=== PATIENT | male | born 1955 | race Caucasian/White ===

== ENCOUNTER 2019-12-28 10:29 | Outpatient (CLI) | payer MEDICARE, SELFPAY ==
[2019-12-28 11:06] LABS: Basophils Absolute Auto 0.1 K/mm3 (0.0-0.1); Basophils Percent Auto 0.6 % (0.2-1.2); Eosinophils Absolute Auto 0.1 K/mm3 (0-0.3); Eosinophils Percent Auto 1.2 % (0-4.4); Hematocrit 46.5 % (42.0-52.0); Hemoglobin 15.6 g/dL (14.0-18.0); Immature Granulocyte Absolute 0.07 K/mm3 (0.00-0.031); Immature Granulocyte Percent A 0.7 % (0-0.5); Lymphocytes Absolute Auto 1.63 K/mm3 (0.9-3.2); Lymphocytes Percent Auto 16.6 % (18.3-44.2); Mean Corpuscular HGB Conc 33.5 g/dl (32-36); Mean Corpuscular Hemoglobin 28.4 pg (26-34); Mean Corpuscular Volume 84.5 fl (80-100); Mean Platelet Volume 9.3 fl (7.4-10.4); Monocytes Absolute Auto 0.8 K/mm3 (0.1-0.6); Monocytes Percent Auto 8.3 % (2.6-8.5); Neutrophils Absolute Auto 7.1 K/mm3 (1.3-6.7); Neutrophils Percent Auto 72.6 % (45.5-73.1); Platelet Count Result 349 k/mm3 (150-375); Red Cell Distribution Width 14.2 % (11.5-14.5); White Blood Count 9.8 K/mm3 (4.5-10.0)
[2019-12-28 11:59] LABS: Erythrocyte Sedimentation Rate 7 mm/hr (0-20)
[2019-12-28 13:21] LABS: CRP 0.7 mg/dL (<1.0)
[2020-01-06 13:51] LABS: CALR Exon 9 Mutation Not Detected (Not Detected); CSF3R Exon 14/17 Mutation Not Detected (Not Detected); JAK2 Exon 12 Mutation Not Detected (Not Detected); JAK2 V617F Mutation Not Detected (Not Detected); MPL Exon 10 Mutation Not Detected (Not Detected); Specimen Source Blood
== END 2019-12-28 10:30 | disposition home or self-care (01) ==
PROVIDERS: PCP Internal Medicine; Visit Provider Internal Medicine Hematology & Oncology
DX: R79.89 Other specified abnormal findings of blood chemistry (principal); D47.3 Essential (hemorrhagic) thrombocythemia
CPT/HCPCS: 36415; 81219; 81270; 81402; 81403; 81479; 85025; 85652; 86140

== ENCOUNTER 2021-09-04 11:32 | Outpatient (CLI) | payer MEDICARE, SELFPAY ==
[2021-09-04 12:02] LABS: Basophils Absolute Auto 0.1 K/mm3 (0.0-0.1); Basophils Percent Auto 0.6 % (0.2-1.2); Eosinophils Absolute Auto 0.1 K/mm3 (0-0.3); Eosinophils Percent Auto 0.6 % (0-4.4); Hematocrit 49.1 % (42.0-52.0); Immature Granulocyte Absolute 0.05 K/mm3 (0.00-0.031); Immature Granulocyte Percent A 0.5 % (0-0.5); Lymphocytes Absolute Auto 1.39 K/mm3 (0.9-3.2); Lymphocytes Percent Auto 13.4 % (18.3-44.2); Mean Corpuscular HGB Conc 32.6 g/dl (32-36); Mean Corpuscular Hemoglobin 28.4 pg (26-34); Mean Corpuscular Volume 87.2 fl (80-100); Mean Platelet Volume 9.3 fl (7.4-10.4); Monocytes Absolute Auto 0.7 K/mm3 (0.1-0.6); Monocytes Percent Auto 6.5 % (2.6-8.5); Neutrophils Absolute Auto 8.2 K/mm3 (1.3-6.7); Neutrophils Percent Auto 78.4 % (45.5-73.1); Platelet Count Result 427 k/mm3 (150-375); Red Blood Count 5.63 M/mm3 (4.6-6.20); Red Cell Distribution Width 14.5 % (11.5-14.5); White Blood Count 10.4 K/mm3 (4.5-10.0)
[2021-09-04 13:43] LABS: Alanine Aminotransferase 28 U/L (6-50); Albumin Level 4.2 g/dL (3.5-5.1); Alkaline Phosphatase 89 U/L (38-126); Anion Gap 9 mmol/L (8-16); Aspartate Amino Transferase 29 U/L (17-59); Bilirubin,Total 0.3 mg/dL (0.2-1.3); Blood Urea Nitrogen 10 mg/dL (9-20); Calcium 8.7 mg/dL (8.4-10.2); Carbon Dioxide 23 mmol/L (22-30); Chloride 99 mmol/L (98-107); Estimated Glomerular Filt Rate > 60; Glucose 126 mg/dL (65-110); Sodium 131 mmol/L (137-145)
[2021-09-08 12:31] LABS: Erythropoietin (EPO) 4.5 mIU/mL (2.6-18.5)
== END 2021-09-04 11:33 | disposition home or self-care (01) ==
LOC: ANHLAB 11:36
PROVIDERS: PCP Internal Medicine; Visit Provider Internal Medicine Hematology & Oncology
DX: D47.3 Essential (hemorrhagic) thrombocythemia (principal)
CPT/HCPCS: 36415; 80053; 82668; 85025

== ENCOUNTER 2022-05-11 13:42 | Outpatient (CLI) | payer MEDICARE, SELFPAY ==
[2022-05-11 13:54] LABS: Basophils Absolute Auto 0.1 K/mm3 (0.0-0.1); Basophils Percent Auto 0.8 % (0.2-1.2); Eosinophils Absolute Auto 0.2 K/mm3 (0-0.3); Eosinophils Percent Auto 1.4 % (0-4.4); Hematocrit 48.3 % (42.0-52.0); Immature Granulocyte Absolute 0.09 K/mm3 (0.00-0.031); Immature Granulocyte Percent A 0.8 % (0-0.5); Lymphocytes Absolute Auto 1.95 K/mm3 (0.9-3.2); Lymphocytes Percent Auto 17.9 % (18.3-44.2); Mean Corpuscular HGB Conc 33.1 g/dl (32-36); Mean Corpuscular Hemoglobin 28.1 pg (26-34); Mean Corpuscular Volume 84.9 fl (80-100); Mean Platelet Volume 9.2 fl (7.4-10.4); Monocytes Absolute Auto 0.9 K/mm3 (0.1-0.6); Neutrophils Absolute Auto 7.7 K/mm3 (1.3-6.7); Neutrophils Percent Auto 71.1 % (45.5-73.1); Platelet Count Result 429 k/mm3 (150-375); Red Blood Count 5.69 M/mm3 (4.6-6.20); Red Cell Distribution Width 14.2 % (11.5-14.5); White Blood Count 10.9 K/mm3 (4.5-10.0)
[2022-05-11 15:01] LABS: Alanine Aminotransferase 24 U/L (6-50); Albumin Level 4.2 g/dL (3.5-5.1); Alkaline Phosphatase 101 U/L (38-126); Anion Gap 7 mmol/L (8-16); Aspartate Amino Transferase 21 U/L (17-59); Bilirubin,Total 0.2 mg/dL (0.2-1.3); Blood Urea Nitrogen 8 mg/dL (9-20); Calcium 8.8 mg/dL (8.4-10.2); Carbon Dioxide 29 mmol/L (22-30); Chloride 98 mmol/L (98-107); Estimated Glomerular Filt Rate > 60; Glucose 103 mg/dL (65-110); Potassium 4.4 mmol/L (3.4-5.0); Sodium 134 mmol/L (137-145)
[2022-05-13 12:45] LABS: Erythropoietin (EPO) 8.1 mIU/mL (2.6-18.5)
== END 2022-05-11 13:43 | disposition home or self-care (01) ==
LOC: ANHLAB 13:43
PROVIDERS: PCP Internal Medicine; Visit Provider Internal Medicine Hematology & Oncology
DX: D47.3 Essential (hemorrhagic) thrombocythemia (principal)
CPT/HCPCS: 36415; 80053; 82668; 85025

== ENCOUNTER 2023-05-14 12:51 | Outpatient (CLI) | payer MEDICARE, SELFPAY ==
[2023-05-14 13:02] LABS: Basophils Absolute Auto 0.1 K/mm3 (0.0-0.1); Basophils Percent Auto 0.9 % (0.2-1.2); Eosinophils Absolute Auto 0.1 K/mm3 (0-0.3); Eosinophils Percent Auto 1.1 % (0-4.4); Hemoglobin 15.7 g/dL (14.0-18.0); Immature Granulocyte Absolute 0.08 K/mm3 (0.00-0.031); Immature Granulocyte Percent A 0.8 % (0-0.5); Lymphocytes Absolute Auto 1.89 K/mm3 (0.9-3.2); Lymphocytes Percent Auto 19.3 % (18.3-44.2); Mean Corpuscular HGB Conc 33.4 g/dl (32-36); Mean Corpuscular Hemoglobin 28.1 pg (26-34); Mean Corpuscular Volume 84.1 fl (80-100); Mean Platelet Volume 9.2 fl (7.4-10.4); Monocytes Percent Auto 9.8 % (2.6-8.5); Neutrophils Absolute Auto 6.7 K/mm3 (1.3-6.7); Neutrophils Percent Auto 68.1 % (45.5-73.1); Platelet Count Result 370 k/mm3 (150-375); Red Blood Count 5.59 M/mm3 (4.6-6.20); Red Cell Distribution Width 14.4 % (11.5-14.5); White Blood Count 9.8 K/mm3 (4.5-10.0)
[2023-05-14 15:18] LABS: Anion Gap 4 mmol/L (8-16); Blood Urea Nitrogen 12 mg/dL (9-20); Carbon Dioxide 30 mmol/L (22-30); Chloride 100 mmol/L (98-107); Estimated Glomerular Filt Rate > 60; Glucose 102 mg/dL (65-110); Potassium 4.4 mmol/L (3.4-5.0); Sodium 134 mmol/L (137-145)
== END 2023-05-14 12:52 | disposition home or self-care (01) ==
LOC: ANHLAB 12:53
PROVIDERS: PCP Internal Medicine; Visit Provider Internal Medicine Hematology & Oncology
DX: D47.3 Essential (hemorrhagic) thrombocythemia (principal)
CPT/HCPCS: 36415; 80048; 85025

== ENCOUNTER 2023-12-13 09:51 | Outpatient (CLI) | payer MEDICARE, SELFPAY ==
[2023-12-13 11:51] LABS: Creatinine Urine 74.4 mg/dL; Total Protein Urine Random 55 mg/dL; Ur Ttl Prot Creatinine Ratio 0.74 mg/mg (0-0.20)
[2023-12-13 11:56] LABS: Anion Gap 8 mmol/L (4-12); Blood Urea Nitrogen 12 mg/dL (9-20); Calcium 8.9 mg/dL (8.4-10.2); Carbon Dioxide 28 mmol/L (22-30); Chloride 98 mmol/L (98-107); Estimated Glomerular Filt Rate > 60; Glucose 166 mg/dL (65-110); Potassium 4.1 mmol/L (3.4-5.0); Sodium 134 mmol/L (137-145)
== END 2023-12-13 09:52 | disposition home or self-care (01) ==
PROVIDERS: PCP Internal Medicine; Visit Provider Internal Medicine Nephrology
DX: R80.1 Persistent proteinuria, unspecified (principal); I10 Essential (primary) hypertension
CPT/HCPCS: 36415; 80069; 82570; 84156

== ENCOUNTER 2024-05-25 09:11 | Outpatient (CLI) | payer MEDICARE, SELFPAY ==
[2024-05-25 09:39] LABS: Basophils Absolute Auto 0.1 K/mm3 (0.0-0.1); Basophils Percent Auto 1.1 % (0.2-1.2); Eosinophils Absolute Auto 0.1 K/mm3 (0-0.3); Eosinophils Percent Auto 1.6 % (0-4.4); Hematocrit 47.7 % (42.0-52.0); Hemoglobin 15.9 g/dL (14.0-18.0); Immature Granulocyte Absolute 0.08 K/mm3 (0.00-0.031); Lymphocytes Absolute Auto 1.31 K/mm3 (0.9-3.2); Mean Corpuscular HGB Conc 33.3 g/dl (32-36); Mean Corpuscular Hemoglobin 27.8 pg (26-34); Mean Corpuscular Volume 83.4 fl (80-100); Mean Platelet Volume 8.9 fl (7.4-10.4); Monocytes Absolute Auto 0.8 K/mm3 (0.1-0.6); Monocytes Percent Auto 9.5 % (2.6-8.5); Neutrophils Absolute Auto 5.8 K/mm3 (1.3-6.7); Neutrophils Percent Auto 70.8 % (45.5-73.1); Platelet Count Result 465 k/mm3 (150-375); Red Blood Count 5.72 M/mm3 (4.6-6.20); Red Cell Distribution Width 14.6 % (11.5-14.5); White Blood Count 8.2 K/mm3 (4.5-10.0)
--- OUTSIDE RECORDS SUMMARY | 2024-05-25 09:39 | XMS_ITS | Data Portability ---
Author Organization [place] [facility], Main Office Address [address] [place] [address] Care Team Providers Care Insulation Blanket Maker Name Role Phone ELVIS ART Primary Care Provider [phone] ELVIS ART Referring Provider [phone] MATTEO LUJAN Orthopedic Surgeon [phone] YOSEPH MUKHERJEE Deck Cadet BRY JIMENEZ Shipwright Helper Assessment Encounter Date Assessment Date Assessment LastModified by Organization Details LastModified Time 01/12/2023 01/12/2023 12/22/2021: PSA 2.55 TSH/FT4: WNL Chol 233, TG 290, HDL 35, LDL 140 CMP: Na 134 Vit D 38 A1C 6.3 CBC: WBC 11.9, PLT 461 03/06/2022: A1C 6.4 TSH/FT4: WNL Urine micro alb 272.5 CBC: WBC 11.9, PLT 486 CMP Gluc 118 Lipids: LDL 108 07/03/2022: A1C 6.2 Gluc 115 HCT 50.5, PLT 421 TSH/FT4: WNL Urine micro alb 284.1 01/05/2023: A1C 6.3 Urine micro 324.6 Gluc 126 PLT 439 Not available 01/12/2023 09:43:51 07/06/2023 07/06/2023 12/22/2021: PSA 2.55 TSH/FT4: WNL Chol 233, TG 290, HDL 35, LDL 140 CMP: Na 134 Vit D 38 A1C 6.3 CBC: WBC 11.9, PLT 461 03/06/2022: A1C 6.4 TSH/FT4: WNL Urine micro alb 272.5 CBC: WBC 11.9, PLT 486 CMP Gluc 118 Lipids: LDL 108 07/03/2022: A1C 6.2 Gluc 115 HCT 50.5, PLT 421 TSH/FT4: WNL Urine micro alb 284.1 01/05/2023: A1C 6.3 Urine micro 324.6 Gluc 126 PLT 439 06/28/2023: PSA 2.39 07/01/2023: A1C 6.4 Gluc 124 TG 211 Urine micro alb 305.4 PLT 410 Not available 07/05/2023 09:24:16 10/12/2023 10/12/2023 12/22/2021: PSA 2.55 TSH/FT4: WNL Chol 233, TG 290, HDL 35, LDL 140 CMP: Na 134 Vit D 38 A1C 6.3 CBC: WBC 11.9, PLT 461 03/06/2022: A1C 6.4 TSH/FT4: WNL Urine micro alb 272.5 CBC: WBC 11.9, PLT 486 CMP Gluc 118 Lipids: LDL 108 07/03/2022: A1C 6.2 Gluc 115 HCT 50.5, PLT 421 TSH/FT4: WNL Urine micro alb 284.1 01/05/2023: A1C 6.3 Urine micro 324.6 Gluc 126 PLT 439 06/28/2023: PSA 2.39 07/01/2023: A1C 6.4 Gluc 124 TG 211 Urine micro alb 305.4 PLT 410 10/07/2023: A1C 6.4 Urine micro alb 350.3 Gluc 116 TG 166, LDL 109 Not available 10/10/2023 22:09:35 11/04/2023 11/04/2023 The patient has moderately severe primary osteoarthritis of the right knee joint with significant narrowing of the lateral compartment and lateral facets of the patellofemoral articulations bilaterally. We talked about treatment options today I offered him cortisone and oral prednisone he declined each he also declined formal physical therapy states his knee pain is resolving with time and Tylenol. He is going to continue with activity modification as well. If his pain flares up again he will come back and see me he wanted make sure there was nothing severe going on he has moderate primary osteoarthritis. It appears he just flared this up while overdoing it in the yd. He voiced understanding and agrees above plan he will call for any further problems difficulties or questions. [email or web address] Not available 11/04/2023 09:42:41 02/08/2024 02/08/2024 12/22/2021: PSA 2.55 TSH/FT4: WNL Chol 233, TG 290, HDL 35, LDL 140 CMP: Na 134 Vit D 38 A1C 6.3 CBC: WBC 11.9, PLT 461 03/06/2022: A1C 6.4 TSH/FT4: WNL Urine micro alb 272.5 CBC: WBC 11.9, PLT 486 CMP Gluc 118 Lipids: LDL 108 07/03/2022: A1C 6.2 Gluc 115 HCT 50.5, PLT 421 TSH/FT4: WNL Urine micro alb 284.1 01/05/2023: A1C 6.3 Urine micro 324.6 Gluc 126 PLT 439 06/28/2023: PSA 2.39 07/01/2023: A1C 6.4 Gluc 124 TG 211 Urine micro alb 305.4 PLT 410 10/07/2023: A1C 6.4 Urine micro alb 350.3 Gluc 116 TG 166, LDL 109 12/13/2023: Dr Barker Gluc 166 02/03/2024: A1C 6.4 Gluc 122 Urine micro alb 532.3 PLT 405 LDL 127 Not available 02/08/2024 11:18:15 Plan of Treatment Reminders Order Date Submit Date Provider Last Modified By Organization Details Last Modified Time Details Appointments Any 15 2024 09:00A Felicita gilliam MD Not available Not available Not available Lab lipid panel, serum 2022 023 [facility] (Lab), [address] [place], [address], 07/01/2023 14:45:56 CMP, serum or plasma 2022 023 [facility] (Lab), [address] [place], [address], 07/01/2023 14:46:12 CBC w/ auto diff 2022 023 [facility] (Lab), [address] [place], [address], 07/01/2023 13:24:10 TSH, serum or plasma 2022 023 [facility] (Lab), [address] [place], [address], 07/01/2023 15:59:17 T4, free, serum 2022 023 [facility] (Lab), [address] [place], [address], 07/01/2023 15:49:02 glycohemo globin, total, blood 2022 023 [facility] (Lab), [address] [place], [address], 07/01/2023 14:59:19 microalbu min, urine 2022 023 [facility] (Lab), [address] [place], [address], 07/01/2023 14:23:31 lipid panel, serum 2023 024 [facility] (Lab), [address] [place], [address], 10/07/2023 12:50:26 CMP, serum or plasma 2023 024 [facility] (Lab), [address] [place], [address], 10/07/2023 12:50:38 CBC w/ auto diff 2023 024 [facility] (Lab), [address] [place], [address], 10/07/2023 12:38:42 TSH, serum or plasma 2023 024 [facility] (Lab), [address] [place], [address], 10/07/2023 13:44:08 T4, free, serum 2023 024 [facility] (Lab), [address] [place], [address], 10/07/2023 13:11:37 glycohemo globin, total, blood 2023 024 [facility] (Lab), [address] [place], [address], 10/07/2023 13:53:04 microalbu min, urine 2023 024 [facility] (Lab), [address] [place], [address], 10/07/2023 15:33:48 lipid panel, serum 2023 024 [facility] (Lab), [address] [place], [address], 02/03/2024 12:42:08 CMP, serum or plasma 2023 024 [facility] (Lab), [address] [place], [address], 02/03/2024 12:42:29 CBC w/ auto diff 2023 024 [facility] (Lab), [address] [place], [address], 02/03/2024 12:01:39 TSH, serum or plasma 2023 024 [facility] (Lab), [address] [place], [address], 02/03/2024 13:15:30 T4, free, serum 2023 024 [facility] (Lab), [address] [place], [address], 02/03/2024 12:59:38 glycohemo globin, total, blood 2023 024 [facility] (Lab), [address] [place], [address], 02/03/2024 13:07:09 microalbu min, urine 2023 024 [facility] (Lab), [address] [place], [address], 02/03/2024 12:41:18 lipid panel, serum 2023 024 [facility] (Lab), [address] [place], [address], 03/04/2024 11:37:15 CMP, serum or plasma [address] (Lab), [address] [place], [address], 02/08/2024 10:17:39 CBC w/ auto diff [address] (Lab), [address] [place], [address], 02/08/2024 10:17:39 TSH, serum or plasma [address] (Lab), [address] [place], [address], 02/08/2024 10:17:40 T4, free, serum [address] (Lab), [address] [place], [address], 02/08/2024 10:17:40 glycohemo globin, total, blood [email or web address] [facility] (Lab), [address] [place], [address], 02/08/2024 10:17:40 microalbu min, urine [address] [facility] (Lab), [address] [place], [address], 02/08/2024 10:17:40 Referral vascular surgeon referral 2022 023 [email or web address] [place], [address] [address], [address], [place], [address], 07/13/2023 08:40:53 nephrolog ist referral 2022 023 [email or web address] Yoseph Mukherjee MD, [address] [facility] [address], [place], [address], 07/13/2023 08:40:54 pulmonolo gist referral 2022 023 [email or web address] Richard Raza MD, [address] [place], [address], 06/15/2023 16:05:40 cardiolog ist referral 2022 023 [email or web address] [place], [address] [address], [address], [place], [address], 07/12/2023 08:39:45 podiatris t referral 2022 023 [email or web address] Milton Corbett DPM, [address] [facility], [address], [place], [address], 07/12/2023 08:39:44 hematolog ist referral 2022 023 [email or web address] Tomer Snell, [address], [place], [address], 06/15/2023 16:06:04 vascular surgeon referral 2023 024 [email or web address] [place], [address], [address], [place], [address], 08/03/2023 09:16:08 nephrolog ist referral 2023 024 [email or web address] Yoseph Mukherjee MD, [address], [address], [place], [address], 01/31/2024 10:29:55 pulmonolo gist referral 2023 024 [email or web address] Richard Raza MD, [address] [place], [address], 01/31/2024 10:29:54 hematolog ist referral 2023 024 [email or web address] Tomer Snell, [address], [place], [address], 08/03/2023 09:15:42 cardiolog ist referral 2023 024 [email or web address] [place], [address] [address], [place], [address], 01/03/2024 14:21:52 podiatris t referral 2023 024 [email or web address] Milton Corbett DPM, [address] [facility], [address], [place], [address], 01/03/2024 14:21:38 vascular surgeon referral 2023 024 [email or web address] [place], [address] [address], [address], [place], [address], 12/15/2023 08:50:45 nephrolog ist referral 2023 024 [email or web address] Yoseph Mukherjee MD, [address] [facility] [address], [place], [address], 04/12/2024 15:36:12 pulmonolo gist referral 2023 024 [email or web address] Richard Raza MD, [address] [place], [address], 04/12/2024 15:35:54 hematolog ist referral 2023 024 [email or web address] Tomer Snell, [address], [place], [address], 12/15/2023 08:50:56 cardiolog ist referral 2023 024 [email or web address] [place], [address], [address], [place], [address], 04/12/2024 15:36:13 podiatris t referral 2023 024 [email or web address] Milton Corbett DPM, [address] [facility], [address], [place], [address], 04/12/2024 15:35:54 vascular surgeon referral 2023 024 [place], [address] [address] , [address], [place], [address], 02/08/2024 10:29:20 nephrolog ist referral - Please call patient to schedule. 2023 024 [email or web address] Yoseph Mukherjee MD, [address] [facility] [address], [place], [address], 04/12/2024 15:36:15 pulmonolo gist referral - Please call patient to schedule. 2023 024 [email or web address] Richard Raza MD, [address] [place], [address], 05/18/2024 08:32:57 cardiolog ist referral 2023 024 [email or web address] [place], [address] [facility], [address], [place], [address], 02/08/2024 10:29:21 podiatris t referral - Please call patient to schedule. 2023 024 [email or web address] Milton Corbett DPM, [address] [facility], [address], [place], [address], 04/12/2024 15:38:04 hematolog ist referral 2023 024 [email or web address] Tomer Snell, [address], [place], [address], 02/08/2024 10:26:37 Procedures colonosco py screening (PROC) 2022 023 bud Kaur MD, [address] [facility], [address], [place], [address], 07/12/2023 08:41:02 colonosco py screening (PROC) 2023 024 bud Kaur MD, [address], [address], [place], [address], 01/03/2024 14:18:55 colonosco py screening (PROC) 2023 024 [email or web address] Kaur MD, [address], [address], [place], [address], 04/12/2024 13:33:05 colonosco py screening (PROC) - Please call patient to schedule. 2023 024 LUCIANO Hope MD, [address] [facility] [address], [place], [address], 04/12/2024 14:35:16 Surgeries None recorded. Imaging LDCT, chest, for lung cancer screening 2022 023 LEEANN [facility] (Radiology), [address] [place], [address], 01/18/2023 14:11:47 LDCT, chest, for lung cancer screening 2023 024 [email or web address] [facility] (Radiology), [address] [place], [address], 01/10/2024 09:31:17 LDCT, chest, for lung cancer screening - No auth required 2023 024 [email or web address] [facility] (Radiology), [address] [place], [address], 03/01/2024 14:10:17 XR, knee 2023 024 [email or web address] [facility], [facility], [place], [address], 11/04/2023 11:13:53 Medication Orders alprazola m 0.25 mg tablet 2022 023 [email or web address] [id number], [address] [facility], [place], [place], [id number], 01/12/2023 09:53:41 Patient TargetsNo targets recorded. Patient Instructions Encounter Date Encounter Id Patient Instructions Last Modified By Organization Details Last Modified Time 01/12/2023 [id number] diabetic eye exam* [email or web address] Not avail able 07/12/2023 08:41:54 07/06/2023 [id number] dementia rating scale-2* [email or web address] Not available 07/08/2023 09:42:27 multi-dimensiona l health assessment questionnaire* [email or web address] Not available 07/08/2023 09:42:54 care plan* [email or web address] Not available 09:40:54 advance care planning: care instructions [email or web address] Not available 07/06/2023 10:45:09 advance directiv es: care instructions [email or web address] 2 Not available 07/06/2023 10:45:09 [place] Advance Directives [email or web address] Not available 07/06/2023 10:45:10 diabetic eye exam* Not availa ble 01/03/2024 14:21:23 Personalized [facility] Plan and Screening Recommendations Advance Directives - Do you have one? Advance Directives - Do we have your advance directive on file in your health record? Primary Prevention/Interven tion (prevents or decreases the chance of common diseases from occurring) Smoking Risk: Refer to attached smoking cessation handouts Refer to attached handouts and prescription will be sent to pharmacy Continue to consider stopping smoking and call if we can assist you Alcohol Misuse Screening: Negative Weight: Appropriate Overwei ght Physical activity: Nutrition: Good Average Fall Risk (screened today): Low Vaccines Pneumococcal: Ordered Recommended today Recommended today, but you have declined No further needed Influenza: Ordered Recommended today Recommended today, but you have declined Chronic Disease Risks Stroke: I have no recommendations Act gallito diagnosis, Continue current treatment plan Heart Attack: I have no recommendations Act gallito diagnosis, Continue current treatment plan Clogging of the Arteries: Low risk Intermediate Risk I have no recommendations Act gallito diagnosis, Continue current treatment plan Diabetes: Secondary Prevention/Interven tion (detects treatable diseases before they may cause symptoms, disability, or ) Prostate Cancer Screening: Colon Cancer Screening: Colonoscopy Date Screening Last Performed: [id number] Eye Disease Screening: Ordered Recommended today Dementia Risk: Low Depression Screening: Negative [email or web address] Not available 07/06/2023 10:46:30 10/12/2023 [id number] dementia rating scale-2* [email or web address] Not available 10/12/2023 12:19:52 alcohol misuse* [email or web address] Not available 10/12/2023 12:20:07 depression screening* [email or web address] Not available 10/12/2023 12:20:33 Timed Up and Go test (TUG)* Not available 10/12/2023 12:20:47 multi-dimensiona l health assessment questionnaire* [email or web address] 2 Not available 10/31/2023 15:53:24 advance care planning: care instructions [email or web address] 2 Not available 10/31/2023 15:53:24 advance directiv es: care instructions karel Hannah Not available 10/31/2023 15:53:24 [place] Advance Directives [email or web address] Not available 10/31/2023 15:53:24 Personalized [facility] Plan and Screening Recommendations Advance Directives - Do you have one? You have indicated that you are capable of preparing your advance care directive Advance Directives - Do we have your advance directive on file in your health record? Primary Prevention/Interven tion (prevents or decreases the chance of common diseases from occurring) Smoking Risk: Refer to attached smoking cessation handouts Alcohol Misuse Screening: Negative Weight: Appropriate Overwei ght continue your current weight loss efforts try to lose 5% of your body weight try to lose 10% of your body weight Physical activity: minimum of 10-20 minutes of activity that causes mild breathlessness/day minimum of 20-30 minutes activity that causes mild breathlessness/day Nutrition: Good Average Refer to attached handout Heart-Healthy Diet: After Your Visit Refer to attached handout DASH Diet: After Your Visit Fall Risk (screened today): Low Refer to attached handout Preventing Falls: After your Visit Vaccines Pneumococcal: Ordered Recommended today Recommended today, but you have declined No further needed Influenza: Chronic Disease Risks Stroke: Low Risk Intermediate Risk Heart Attack: Low risk Intermediate Risk Clogging of the Arteries: Diabetes: Secondary Prevention/Interven tion (detects treatable diseases before they may cause symptoms, disability, or ) Prostate Cancer Screening: Colon Cancer Screening: Colonoscopy Date Screening Last Performed: 2010 Eye Disease Screening: Ordered Recommended today Dementia Risk: Low Intermediate I have no recommendations Depression Screening: Negative Positive [email or web address] Not available 10/12/2023 12:23:06 Reason for Referral Deputy Director Of Finance Referral for O bstructive sleep apnea syndrome Referring Physician: Elvis Art Internal Medicine, Encounter Date: 01/12/2023 Referring Physician: Elvis Art Internal Medicine, Encounter Date: 01/12/2023 Smoke Tester Referral for Type 2 diabetes mellitus without complication Referring Physician: Elvis Art Internal Medicine, Encounter Date: 01/12/2023 Vascular Surgeon Referral fo r Peripheral vascular disease Referring Physician: Shyam Keenan Medicine, Encounter Date: 01/12/2023 Deck Cadet Referral for Pr oteinuria Referring Physician: Shyam Keenan, Encounter Date: 01/12/2023 Shipwright Helper Referral for Es sential hypertension Referring Physician: Shyam Keenan, Encounter Date: 01/12/2023 Deputy Director Of Finance Referral for O bstructive sleep apnea syndrome Referring Physician: Shyam Keenan, Encounter Date: 07/06/2023 Referring Physician: Shyam Keenan, Encounter Date: 07/06/2023 Smoke Tester Referral for Type 2 diabetes mellitus without complication Referring Physician: Shyam Keenan, Encounter Date: 07/06/2023 Vascular Surgeon Referral fo r Peripheral vascular disease Referring Physician: Shyam Keenan, Encounter Date: 07/06/2023 Deck Cadet Referral for Pr oteinuria Referring Physician: Shyam Keenan, Encounter Date: 07/06/2023 Shipwright Helper Referral for Es sential hypertension Referring Physician: Shyam Keenan, Encounter Date: 07/06/2023 Deputy Director Of Finance Referral for O bstructive sleep apnea syndrome Referring Physician: Shyam Keenan, Encounter Date: 10/12/2023 Referring Physician: Shyam Keenan, Encounter Date: 10/12/2023 Smoke Tester Referral for Type 2 diabetes mellitus without complication Referring Physician: Shyam Keenan, Encounter Date: 10/12/2023 Vascular Surgeon Referral fo r Peripheral vascular disease Referring Physician: Shyam Keenan, Encounter Date: 10/12/2023 Deck Cadet Referral for Pr oteinuria Referring Physician: Elvis Art Internal Medicine, Encounter Date: 10/12/2023 Shipwright Helper Referral for Es sential hypertension Referring Physician: Elvis Art Internal Medicine, Encounter Date: 10/12/2023 Deputy Director Of Finance Referral for O bstructive sleep apnea syndrome Please call patient to schedule. Referring Physician: Elvis Art Internal Medicine, Encounter Date: 02/08/2024 Referring Physician: Elvis Art Internal Medicine, Encounter Date: 02/08/2024 Smoke Tester Referral for Type 2 diabetes mellitus without complication Please call patient to schedule. Referring Physician: Elvis Art Internal Medicine, Encounter Date: 02/08/2024 Vascular Surgeon Referral fo r Peripheral vascular disease Referring Physician: Elvis Art Internal Medicine, Encounter Date: 02/08/2024 Deck Cadet Referral for Pr oteinuria Please call patient to schedule. Referring Physician: Shyam Keenan Medicine, Encounter Date: 02/08/2024 Shipwright Helper Referral for Es sential hypertension Referring Physician: Shyam Keenan Medicine, Encounter Date: 02/08/2024 Results Created Date Observation Date Name Description Value Unit Range Abnormal Flag Note LastModifiedBy Organization Detail LastModifiedTime 01/06/2001/05/2023 MICRO ALBUM IN RANDO M URINE microalbumin , urine 324.6 mg/L 0.0-16 .[address] [facility] (Lab) [address] [place], [address], 01/05/2023 18:31:13 01/06/2001/05/2023 CBC/C OMPLE TE BLD COUNT W/DIF F white blood cells 9.5 x10'3 /uL 4.2-[address] [facility] (Lab) [address] [place], [address], 01/05/2023 13:14:01/06/2001/05/2023 CBC/C OMPLE TE BLD COUNT W/DIF F red blood cells 5.52 x10'6 /uL 4.10-[address] [facility] (Lab) [address] [place], [address], 01/05/2023 13:14:01/06/2001/05/2023 CBC/C OMPLE TE BLD COUNT W/DIF F hemoglobin 15.6 g/dL 13.2-[address] [facility] (Lab) [address] [place], [address], 01/05/2023 13:14:01/06/2001/05/2023 CBC/C OMPLE TE BLD COUNT W/DIF F hematocrit 47.5 % 39.3-[address] [facility] (Lab) [address] [place], [address], 01/05/2023 13:14:01/06/2001/05/2023 CBC/C OMPLE TE BLD COUNT W/DIF F mean red cell volume 86.1 fL 80.0-[address] [facility] (Lab) [address] [place], [address], 01/05/2023 13:14:01/06/2001/05/2023 CBC/C OMPLE TE BLD COUNT W/DIF F mean red cell hemoglobin 28.3 pg 27.0-[address] [facility] (Lab) [address] [place], [address], 01/05/2023 13:14:01/06/2001/05/2023 CBC/C OMPLE TE BLD COUNT W/DIF F mean RBC HGB concentratio n 32.8 g/dL 31.0-[address] [facility] (Lab) [address] [place], [address], 01/05/2023 13:14:01/06/2001/05/2023 CBC/C OMPLE TE BLD COUNT W/DIF F red cell distribution width 14.3 % 11.8-1 5.5 Not Available [facility] (Lab) [address] [place], [address], 01/05/2023 13:14:01/06/2001/05/2023 CBC/C OMPLE TE BLD COUNT W/DIF F platelets 439 x10'3 /uL 150-[address] [facility] (Lab) [address] [place], [address], 01/05/2023 13:14:01/06/2001/05/2023 CBC/C OMPLE TE BLD COUNT W/DIF F mean platelet volume 9.9 fL 9.0-12 .4 Not Available [facility] (Lab) [address] [place], [address], 01/05/2023 13:14:01/06/2001/05/2023 CBC/C OMPLE TE BLD COUNT W/DIF F neutrophils 76.1 % 39.0-7 2.0 high Not Available [facility] (Lab) [address] [place], [address], 01/05/2023 13:14:01/06/2001/05/2023 CBC/C OMPLE TE BLD COUNT W/DIF F lymphocytes 14.5 % 16.0-4 [address] [facility] (Lab) [address] [place], [address], 01/05/2023 13:14:01/06/2001/05/2023 CBC/C OMPLE TE BLD COUNT W/DIF F monocytes 7.3 % 5.0-[address] [facility] (Lab) [address] [place], [address], 01/05/2023 13:14:01/06/2001/05/2023 CBC/C OMPLE TE BLD COUNT W/DIF F eosinophils 0.8 % 1.0-7. 0 low Not Available [facility] (Lab) [address] [place], [address], 01/05/2023 13:14:01/06/2001/05/2023 CBC/C OMPLE TE BLD COUNT W/DIF F basophils 0.8 % 0.0-2. [address] [facility] (Lab) [address] [place], [address], 01/05/2023 13:14:01/06/2001/05/2023 CBC/C OMPLE TE BLD COUNT W/DIF F immature granulocytes 0.5 % 0.00-[address] [facility] (Lab) [address] [place], [address], 01/05/2023 13:14:01/06/2001/05/2023 CBC/C OMPLE TE BLD COUNT W/DIF F neutrophils, absolute count 7.20 x10'3 /uL 1.5-8. [address] [facility] (Lab) [address] [place], [address], 01/05/2023 13:14:01/06/2001/05/2023 CBC/C OMPLE TE BLD COUNT W/DIF F lymphocytes, absolute count 1.37 x10'3 /uL 1.07-[address] [facility] (Lab) [address] [place], [address], 01/05/2023 13:14:19 01/06/2001/05/2023 CBC/C OMPLE TE BLD COUNT W/DIF F monocytes, absolute count 0.69 x10'3 /uL 0.29-[address] [facility] (Lab) [address] [place], [address], 01/05/2023 13:14:01/06/2001/05/2023 CBC/C OMPLE TE BLD COUNT W/DIF F eosinophils, absolute count 0.08 x10'3 /uL 0.02-[address] [facility] (Lab) [address] [place], [address], 01/05/2023 13:14:01/06/2001/05/2023 CBC/C OMPLE TE BLD COUNT W/DIF F basophils, absolute count 0.08 x10'3 /uL 0.01-[address] [facility] (Lab) [address] [place], [address], 01/05/2023 13:14:01/06/2001/05/2023 CBC/C OMPLE TE BLD COUNT W/DIF F immature granulocytes ,absolute 0.05 x10'3 /uL 0.00-[address] [facility] (Lab) [address] [place], [address], 01/05/2023 13:14:01/06/2001/05/2023 CBC/C OMPLE TE BLD COUNT W/DIF F nucleated red blood cells 0.0 % -[address] [facility] (Lab) [address] [place], [address], 01/05/2023 13:14:01/06/2001/05/2023 CBC/C OMPLE TE BLD COUNT W/DIF F NRBC# 0.00 x10'3 /uL Not Available [facility] (Lab) [address] [place], [address], 01/05/2023 13:14:19 01/06/20 23 01/05/2023 LIPID PANEL cholesterol 161 mg/dL 140-19 9 NIH LEDA NSUS RECOM MENDA TION FOR EARNEST STERO L: ADULT CHILD LOW RISK: <200 <170 BORDE RLINE : <200- 239 ----- HIGH RISK: >240 >[address] [facility] (Lab) [address] [place], [address], 01/05/2023 13:19:56 01/06/20 23 01/05/2023 LIPID PANEL triglyceride s 131 mg/dL 0-150 NIH LEDA NSUS REPOR T RECOM MENDA TION FOR TRIGL YCERI ARGENIS: ADULT CHILD LOW RISK: <150 ----- BODER LINE: 150-1 99 ----- HIGH RISK: >200 ----- Not Available [facility] (Lab) [address] [place], [address], 01/05/2023 13:19:56 01/06/20 23 01/05/2023 LIPID PANEL HDL cholesterol 42 mg/dL 40- Not Available [facility] (Lab) [address] [place], [address], 01/05/2023 13:19:56 01/06/20 23 01/05/2023 LIPID PANEL LDL cholesterol, calculated 93 mg/dL 0-130 NIH LEDA NSUS REPOR T RECOM MENDA TIONS FOR LDL: ADULT CHILD LOW RISK <130 <110 (OPTI MAL LDL) <100 ----- BORDE RLINE : 130-1 59 ----- HIGH RISK: >160 >130 A TRIGL YCERI DE RESUL T >400 INVAL IDATE S THE CALCU LATIO N FOR LDL FRACT IONAT ION - THE LDL RESUL T WILL NOT BE REPOR MARIA ELENA. Not Available [facility] (Lab) [address] [place], [address], 01/05/2023 13:19:56 01/06/20 23 01/05/2023 COMPR EHENS GALLITO METAB OLIC PANEL sodium 135 mmol/ L 137-14 5 low Not Available [facility] (Lab) [address] [place], [address], 01/05/2023 13:20:17 01/06/20 23 01/05/2023 COMPR EHENS GALLITO METAB OLIC PANEL potassium 4.2 mmol/ L 3.5-5. 1 Not Available [facility] (Lab) [address] [place], [address], 01/05/2023 13:20:17 01/06/20 23 01/05/2023 COMPR EHENS GALLITO METAB OLIC PANEL chloride 97 mmol/ L 98-107 low Not Available [facility] (Lab) [address] [place], [address], 01/05/2023 13:20:17 01/06/20 23 01/05/2023 COMPR EHENS GALLITO METAB OLIC PANEL carbon dioxide 30 mmol/ L 22-30 Not Available [facility] (Lab) [address] [place], [address], 01/05/2023 13:20:17 01/06/20 23 01/05/2023 COMPR EHENS GALLITO METAB OLIC PANEL anion gap 12.2 mmol/ L 14-22 low Not Available [facility] (Lab) [address] [place], [address], 01/05/2023 13:20:17 01/06/20 23 01/05/2023 COMPR EHENS GALLITO METAB OLIC PANEL glucose 126 mg/dL 70-99 high Not Available [facility] (Lab) [address] [place], [address], 01/05/2023 13:20:17 01/06/20 23 01/05/2023 COMPR EHENS GALLITO METAB OLIC PANEL BUN 9 mg/dL 8-19 Not Available [facility] (Lab) [address] [place], [address], 01/05/2023 13:20:17 01/06/20 23 01/05/2023 COMPR EHENS GALLITO METAB OLIC PANEL creatinine 0.61 mg/dL 0.66-1 [address] [facility] (Lab) [address] [place], [address], 01/05/2023 13:20:17 01/06/20 23 01/05/2023 COMPR EHENS GALLITO METAB OLIC PANEL GFR >60 Refer ence Range : [place] GFR Healt hy Adult : >60 mL/mi n/1.7 3 m2 Chron ic Kidne y Disea se: 15-60 mL/mi n/1.7 3 m2 Kidne y Failu re: <15/m L/min /1.73 m2 www.n iddk. nih.g ov The MDRD study equat ion has not been valid ated in child deidra <18 years of age; pregn ant women ; the elder ly >85 years of age; or in some racia l or ethni c subgr oups, such as Hisil nics. Outsi de the valid ated eric eters , estim ated GFR is less accur ate, requi ring clini baljit judgm ent on a case- by-ca se basis . Clini baljit inter preta tion for other races and ages must be made by the clini hermes. The MDRD study equat ion has not been valid ated for the evalu ation of serum creat inine relat ed to nutri denilson l statu s or medic ation usage . For perso ns <18 years of age, a pedia tric GFR calcu lator is avail able on the [facility] websi te: https ://ww w.kid dorys.o rg/pr ofess ional s/kdo qi/gf r_cal culat or Not Available [facility] (Lab) [address] [place], [address], 01/05/2023 13:20:17 01/06/20 23 01/05/2023 COMPR EHENS GALLITO METAB OLIC PANEL alkaline phosphatase 84 U/L 38-126 Not Available [facility] (Lab) [address] [place], [address], 01/05/2023 13:20:17 01/06/20 23 01/05/2023 COMPR EHENS GALLITO METAB OLIC PANEL alanine aminotransfe rase 22 U/L 0-[address] [facility] (Lab) [address] [place], [address], 01/05/2023 13:20:17 01/06/20 23 01/05/2023 COMPR EHENS GALLITO METAB OLIC PANEL aspartate aminotransfe rase 19 U/L 15-[address] [facility] (Lab) [address] [place], [address], 01/05/2023 13:20:17 01/06/20 23 01/05/2023 COMPR EHENS GALLITO METAB OLIC PANEL bilirubin, total 0.30 mg/dL 0.20-[address] [facility] (Lab) [address] [place], [address], 01/05/2023 13:20:17 01/06/20 23 01/05/2023 COMPR EHENS GALLITO METAB OLIC PANEL calcium 9.5 mg/dL 8.4-[address] [facility] (Lab) [address] [place], [address], 01/05/2023 13:20:17 01/06/20 23 01/05/2023 COMPR EHENS GALLITO METAB OLIC PANEL total protein 6.8 g/dL 6.3-8. [address] [facility] (Lab) [address] [place], [address], 01/05/2023 13:20:17 01/06/20 23 01/05/2023 COMPR EHENS GALLITO METAB OLIC PANEL albumin 4.1 g/dL 3.0-4. [address] [facility] (Lab) [address] [place], [address], 01/05/2023 13:20:17 01/06/20 23 01/05/2023 COMPR EHENS GALLITO METAB OLIC PANEL globulin 2.7 g/dL 2.6-4. [address] [facility] (Lab) [address] [place], [address], 01/05/2023 13:20:17 01/06/20 23 01/05/2023 COMPR EHENS GALLITO METAB OLIC PANEL A/G ratio 1.5 ratio 1.0-2. [address] [facility] (Lab) [address] [place], [address], 01/05/2023 13:20:17 01/06/20 23 01/05/2023 T4 FREE free T4 1.19 NG/dL 0.78-[address] [facility] (Lab) [address] [place], [address], 01/05/2023 13:29:36 01/06/20 23 01/05/2023 TSH thyroid-stim ulating hormone 1.240 uIU/m L 0.465- 4.[address] [facility] (Lab) [address] [place], [address], 01/05/2023 13:47:11 01/06/2001/05/2023 HEMOG LOBIN A1C HA1C 6.3 % 4.0-6. 0 high Diabe lindsay Scree kerrie Crite janusz: <5.7% Consi stent with absen ce of diabe lindsay 5.7-6 .4% Consi stent with incre ased risk for diabe lindsay (pred iabet es) >OR=6 .5% Consi stent with diabe lindsay REFER ENCE: Diabe lindsay Care 2016, 39(Benson ppl.1 ):s13 -s22 Not Available [facility] (Lab) [address] [place], [address], 01/05/2023 15:14:27 06/28/19 24 06/28/2023 PSA SCREE N PSA medicare screen 2.39 NG/mL 0.00-[address] [facility] (Lab) [address] [place], [address], 06/28/2023 17:56:28 07/01/19 24 07/01/2023 CBC/C OMPLE TE BLD COUNT W/DIF F white blood cells 9.3 x10'3 /uL 4.2-10 .8 Not Available [facility] (Lab) [address] [place], [address], 07/01/2023 13:24:10 07/01/19 24 07/01/2023 CBC/C OMPLE TE BLD COUNT W/DIF F red blood cells 5.50 x10'6 /uL 4.10-[address] [facility] (Lab) [address] [place], [address], 07/01/2023 13:24:10 07/01/19 24 07/01/2023 CBC/C OMPLE TE BLD COUNT W/DIF F hemoglobin 15.5 g/dL 13.2-[address] [facility] (Lab) [address] [place], [address], 07/01/2023 13:24:10 07/01/19 24 07/01/2023 CBC/C OMPLE TE BLD COUNT W/DIF F hematocrit 47.9 % 39.3-[address] [facility] (Lab) [address] [place], [address], 07/01/2023 13:24:10 07/01/19 24 07/01/2023 CBC/C OMPLE TE BLD COUNT W/DIF F mean red cell volume 87.1 fL 80.0-[address] [facility] (Lab) [address] [place], [address], 07/01/2023 13:24:10 07/01/19 24 07/01/2023 CBC/C OMPLE TE BLD COUNT W/DIF F mean red cell hemoglobin 28.2 pg 27.0-[address] [facility] (Lab) [address] [place], [address], 07/01/2023 13:24:10 07/01/19 24 07/01/2023 CBC/C OMPLE TE BLD COUNT W/DIF F mean RBC HGB concentratio n 32.4 g/dL 31.0-[address] [facility] (Lab) [address] [place], [address], 07/01/2023 13:24:10 07/01/19 24 07/01/2023 CBC/C OMPLE TE BLD COUNT W/DIF F red cell distribution width 14.6 % 11.8-[address] [facility] (Lab) [address] [place], [address], 07/01/2023 13:24:10 07/01/19 24 07/01/2023 CBC/C OMPLE TE BLD COUNT W/DIF F platelets 410 x10'3 /uL 150-[address] [facility] (Lab) [address] [place], [address], 07/01/2023 13:24:10 07/01/19 24 07/01/2023 CBC/C OMPLE TE BLD COUNT W/DIF F mean platelet volume 10.1 fL 9.0-[address] [facility] (Lab) [address] [place], [address], 07/01/2023 13:24:10 07/01/19 24 07/01/2023 CBC/C OMPLE TE BLD COUNT W/DIF F neutrophils 70.6 % 39.0-[address] [facility] (Lab) [address] [place], [address], 07/01/2023 13:24:10 07/01/19 24 07/01/2023 CBC/C OMPLE TE BLD COUNT W/DIF F lymphocytes 17.0 % 16.0-[address] [facility] (Lab) [address] [place], [address], 07/01/2023 13:24:10 07/01/19 24 07/01/2023 CBC/C OMPLE TE BLD COUNT W/DIF F monocytes 9.6 % 5.0-[address] [facility] (Lab) [address] [place], [address], 07/01/2023 13:24:10 07/01/19 24 07/01/2023 CBC/C OMPLE TE BLD COUNT W/DIF F eosinophils 1.3 % 1.0-7. [address] [facility] (Lab) [address] [place], [address], 07/01/2023 13:24:10 07/01/19 24 07/01/2023 CBC/C OMPLE TE BLD COUNT W/DIF F basophils 0.6 % 0.0-2. [address] [facility] (Lab) [address] [place], [address], 07/01/2023 13:24:10 07/01/19 24 07/01/2023 CBC/C OMPLE TE BLD COUNT W/DIF F immature granulocytes 0.9 % 0.00-0 .[address] [facility] (Lab) [address] [place], [address], 07/01/2023 13:24:10 07/01/19 24 07/01/2023 CBC/C OMPLE TE BLD COUNT W/DIF F neutrophils, absolute count 6.57 x10'3 /uL 1.5-8. [address] [facility] (Lab) [address] [place], [address], 07/01/2023 13:24:10 07/01/19 24 07/01/2023 CBC/C OMPLE TE BLD COUNT W/DIF F lymphocytes, absolute count 1.58 x10'3 /uL 1.07-[address] [facility] (Lab) [address] [place], [address], 07/01/2023 13:24:10 07/01/19 24 07/01/2023 CBC/C OMPLE TE BLD COUNT W/DIF F monocytes, absolute count 0.89 x10'3 /uL 0.29-[address] [facility] (Lab) [address] [place], [address], 07/01/2023 13:24:10 07/01/19 24 07/01/2023 CBC/C OMPLE TE BLD COUNT W/DIF F eosinophils, absolute count 0.12 x10'3 /uL 0.02-[address] [facility] (Lab) [address] [place], [address], 07/01/2023 13:24:10 07/01/19 24 07/01/2023 CBC/C OMPLE TE BLD COUNT W/DIF F basophils, absolute count 0.06 x10'3 /uL 0.01-[address] [facility] (Lab) [address] [place], [address], 07/01/2023 13:24:10 07/01/19 24 07/01/2023 CBC/C OMPLE TE BLD COUNT W/DIF F immature granulocytes ,absolute 0.08 x10'3 /uL 0.00-0 .[address] [facility] (Lab) [address] [place], [address], 07/01/2023 13:24:10 07/01/19 24 07/01/2023 CBC/C OMPLE TE BLD COUNT W/DIF F nucleated red blood cells 0.0 % -[address] [facility] (Lab) [address] [place], [address], 07/01/2023 13:24:10 07/01/19 24 07/01/2023 CBC/C OMPLE TE BLD COUNT W/DIF F NRBC# 0.00 x10'3 /uL Not Available [facility] (Lab) [address] [place], [address], 07/01/2023 13:24:10 07/01/19 24 07/01/2023 MICRO ALBUM IN RANDO M URINE microalbumin , urine 305.4 mg/L 0.0-16 .[address] [facility] (Lab) [address] [place], [address], 07/01/2023 14:23:31 07/01/19 24 07/01/2023 LIPID PANEL cholesterol 194 mg/dL 140-19 9 NIH LEDA NSUS RECOM MENDA TION FOR EARNEST STERO L: ADULT CHILD LOW RISK: <200 <170 BORDE RLINE : <200- 239 ----- HIGH RISK: >240 >[address] [facility] (Lab) [address] [place], [address], 07/01/2023 14:45:56 07/01/19 24 07/01/2023 LIPID PANEL triglyceride s 211 mg/dL 0-150 high NIH LEDA NSUS REPOR T RECOM MENDA TION FOR TRIGL YCERI ARGENIS: ADULT CHILD LOW RISK: <150 ----- BODER LINE: 150-1 99 ----- HIGH RISK: >200 ----- Not Available [facility] (Lab) [address] [place], [address], 07/01/2023 14:45:56 07/01/19 24 07/01/2023 LIPID PANEL HDL cholesterol 40 mg/dL 40- Not Available [facility] (Lab) [address] [place], [address], 07/01/2023 14:45:56 07/01/19 24 07/01/2023 LIPID PANEL LDL cholesterol, calculated 112 mg/dL 0-130 NIH LEDA NSUS REPOR T RECOM MENDA TIONS FOR LDL: ADULT CHILD LOW RISK <130 <110 (OPTI MAL LDL) <100 ----- BORDE RLINE : 130-1 59 ----- HIGH RISK: >160 >130 A TRIGL YCERI DE RESUL T >400 INVAL IDATE S THE CALCU LATIO N FOR LDL FRACT IONAT ION - THE LDL RESUL T WILL NOT BE REPOR MARIA ELENA. Not Available [facility] (Lab) [address] [place], [address], 07/01/2023 14:45:56 07/01/19 24 07/01/2023 COMPR EHENS GALLITO METAB OLIC PANEL sodium 135 mmol/ L 137-14 5 low Not Available [facility] (Lab) [address] [place], [address], 07/01/2023 14:46:12 07/01/19 24 07/01/2023 COMPR EHENS GALLITO METAB OLIC PANEL potassium 4.7 mmol/ L 3.5-5. [address] [facility] (Lab) [address] [place], [address], 07/01/2023 14:46:12 07/01/19 24 07/01/2023 COMPR EHENS GALLITO METAB OLIC PANEL chloride 99 mmol/ L 98-[address] [facility] (Lab) [address] [place], [address], 07/01/2023 14:46:12 07/01/19 24 07/01/2023 COMPR EHENS GALLITO METAB OLIC PANEL carbon dioxide 29 mmol/ L 22-[address] [facility] (Lab) [address] [place], [address], 07/01/2023 14:46:12 07/01/19 24 07/01/2023 COMPR EHENS GALLITO METAB OLIC PANEL anion gap 11.7 mmol/ L 14-22 low Not Available [facility] (Lab) [address] [place], [address], 07/01/2023 14:46:12 07/01/19 24 07/01/2023 COMPR EHENS GALLITO METAB OLIC PANEL glucose 124 mg/dL 70-99 high Not Available [facility] (Lab) [address] [place], [address], 07/01/2023 14:46:12 07/01/19 24 07/01/2023 COMPR EHENS GALLITO METAB OLIC PANEL BUN 9 mg/dL 8-[address] [facility] (Lab) [address] [place], [address], 07/01/2023 14:46:12 07/01/19 24 07/01/2023 COMPR EHENS GALLITO METAB OLIC PANEL creatinine 0.54 mg/dL 0.66-1 [address] [facility] (Lab) [address] [place], [address], 07/01/2023 14:46:12 07/01/19 24 07/01/2023 COMPR EHENS GALLITO METAB OLIC PANEL GFR >60 Refer ence Range : [place] GFR Healt hy Adult : >60 mL/mi n/1.7 3 m2 Chron ic Kidne y Disea se: 15-60 mL/mi n/1.7 3 m2 Kidne y Failu re: <15/m L/min /1.73 m2 www.n iddk. nih.g ov The MDRD study equat ion has not been valid ated in child deidra <18 years of age; pregn ant women ; the elder ly >85 years of age; or in some racia l or ethni c subgr oups, such as Hispa nics. Outsi de the valid ated eric eters , estim ated GFR is less accur ate, requi ring clini baljit judgm ent on a case- by-ca se basis . Clini baljit inter preta tion for other races and ages must be made by the clini hermes. The MDRD study equat ion has not been valid ated for the evalu ation of serum creat inine relat ed to nutri denilson l statu s or medic ation usage . For perso ns <18 years of age, a pedia tric GFR calcu lator is avail able on the [facility] websi te: https ://eda w.vandana tenorioy.o rg/pr ofess ional s/kdo qi/gf r_cal culat or Not Available [facility] (Lab) [address] [place], [address], 07/01/2023 14:46:12 07/01/19 24 07/01/2023 COMPR EHENS GALLITO METAB OLIC PANEL alkaline phosphatase 95 U/L 38-126 Not Available [facility] (Lab) [address] [place], [address], 07/01/2023 14:46:12 07/01/19 24 07/01/2023 COMPR EHENS GALLITO METAB OLIC PANEL alanine aminotransfe rase 33 U/L 0-[address] [facility] (Lab) [address] [place], [address], 07/01/2023 14:46:12 07/01/19 24 07/01/2023 COMPR EHENS GALLITO METAB OLIC PANEL aspartate aminotransfe rase 27 U/L 15-[address] [facility] (Lab) [address] [place], [address], 07/01/2023 14:46:12 07/01/19 24 07/01/2023 COMPR EHENS GALLITO METAB OLIC PANEL bilirubin, total 0.50 mg/dL 0.20-[address] [facility] (Lab) [address] [place], [address], 07/01/2023 14:46:12 07/01/19 24 07/01/2023 COMPR EHENS GALLITO METAB OLIC PANEL calcium 9.6 mg/dL 8.4-[address] [facility] (Lab) [address] [place], [address], 07/01/2023 14:46:12 07/01/19 24 07/01/2023 COMPR EHENS GALLITO METAB OLIC PANEL total protein 7.1 g/dL 6.3-8. [address] [facility] (Lab) [address] [place], [address], 07/01/2023 14:46:12 07/01/19 24 07/01/2023 COMPR EHENS GALLITO METAB OLIC PANEL albumin 4.2 g/dL 3.0-4. [address] [facility] (Lab) [address] [place], [address], 07/01/2023 14:46:12 07/01/19 24 07/01/2023 COMPR EHENS GALLITO METAB OLIC PANEL globulin 2.9 g/dL 2.6-4. [address] [facility] (Lab) [address] [place], [address], 07/01/2023 14:46:12 07/01/19 24 07/01/2023 COMPR EHENS GALLITO METAB OLIC PANEL A/G ratio 1.4 ratio 1.0-2. [address] [facility] (Lab) [address] [place], [address], 07/01/2023 14:46:12 07/01/19 24 07/01/2023 HEMOG LOBIN A1C HA1C 6.4 % 4.0-6. 0 high Diabe lindsay Scree kerrie Crite janusz: <5.7% Consi stent with absen ce of diabe lindsay 5.7-6 .4% Consi stent with incre ased risk for diabe lindsay (pred iabet es) >OR=6 .5% Consi stent with diabe lindsay REFER ENCE: Diabe lindsay Care 2016, 39(Benson ppl.1 ):s13 -s22 [address] [facility] (Lab) [address] [place], [address], 07/01/2023 14:59:19 07/01/19 24 07/01/2023 T4 FREE free T4 0.83 NG/dL 0.78-[address] [facility] (Lab) [address] [place], [address], 07/01/2023 15:49:02 07/01/19 24 07/01/2023 TSH thyroid-stim ulating hormone 1.650 uIU/m L 0.465- 4.[address] [facility] (Lab) [address] [place], [address], 07/01/2023 15:59:17 10/07/19 24 10/07/2023 CBC/C OMPLE TE BLD COUNT W/DIF F white blood cells 8.1 x10'3 /uL 4.2-[address] [facility] (Lab) [address] [place], [address], 10/07/2023 12:38:42 10/07/19 24 10/07/2023 CBC/C OMPLE TE BLD COUNT W/DIF F red blood cells 5.54 x10'6 /uL 4.10-[address] [facility] (Lab) [address] [place], [address], 10/07/2023 12:38:42 10/07/19 24 10/07/2023 CBC/C OMPLE TE BLD COUNT W/DIF F hemoglobin 15.7 g/dL 13.2-[address] [facility] (Lab) [address] [place], [address], 10/07/2023 12:38:42 10/07/19 24 10/07/2023 CBC/C OMPLE TE BLD COUNT W/DIF F hematocrit 47.3 % 39.3-[address] [facility] (Lab) [address] [place], [address], 10/07/2023 12:38:42 10/07/19 24 10/07/2023 CBC/C OMPLE TE BLD COUNT W/DIF F mean red cell volume 85.4 fL 80.0-[address] [facility] (Lab) [address] [place], [address], 10/07/2023 12:38:42 10/07/19 24 10/07/2023 CBC/C OMPLE TE BLD COUNT W/DIF F mean red cell hemoglobin 28.3 pg 27.0-[address] [facility] (Lab) [address] [place], [address], 10/07/2023 12:38:42 10/07/19 24 10/07/2023 CBC/C OMPLE TE BLD COUNT W/DIF F mean RBC HGB concentratio n 33.2 g/dL 31.0-[address] [facility] (Lab) [address] [place], [address], 10/07/2023 12:38:42 10/07/19 24 10/07/2023 CBC/C OMPLE TE BLD COUNT W/DIF F red cell distribution width 14.6 % 11.8-[address] [facility] (Lab) [address] [place], [address], 10/07/2023 12:38:42 10/07/19 24 10/07/2023 CBC/C OMPLE TE BLD COUNT W/DIF F platelets 395 x10'3 /uL 150-[address] [facility] (Lab) [address] [place], [address], 10/07/2023 12:38:42 10/07/19 24 10/07/2023 CBC/C OMPLE TE BLD COUNT W/DIF F mean platelet volume 9.8 fL 9.0-12 .4 Not Available [facility] (Lab) [address] [place], [address], 10/07/2023 12:38:42 10/07/19 24 10/07/2023 CBC/C OMPLE TE BLD COUNT W/DIF F neutrophils 68.9 % 39.0-7 2.0 Not Available [facility] (Lab) [address] [place], [address], 10/07/2023 12:38:42 10/07/19 24 10/07/2023 CBC/C OMPLE TE BLD COUNT W/DIF F lymphocytes 18.7 % 16.0-4 7.0 Not Available [facility] (Lab) [address] [place], [address], 10/07/2023 12:38:42 10/07/19 24 10/07/2023 CBC/C OMPLE TE BLD COUNT W/DIF F monocytes 9.3 % 5.0-12 .0 Not Available [facility] (Lab) [address] [place], [address], 10/07/2023 12:38:42 10/07/19 24 10/07/2023 CBC/C OMPLE TE BLD COUNT W/DIF F eosinophils 1.1 % 1.0-7. 0 Not Available [facility] (Lab) [address] [place], [address], 10/07/2023 12:38:42 10/07/19 24 10/07/2023 CBC/C OMPLE TE BLD COUNT W/DIF F basophils 1.1 % 0.0-2. [address] [facility] (Lab) [address] [place], [address], 10/07/2023 12:38:42 10/07/19 24 10/07/2023 CBC/C OMPLE TE BLD COUNT W/DIF F immature granulocytes 0.9 % 0.00-0 .50 high Not Available [facility] (Lab) [address] [place], [address], 10/07/2023 12:38:42 10/07/19 24 10/07/2023 CBC/C OMPLE TE BLD COUNT W/DIF F neutrophils, absolute count 5.56 x10'3 /uL 1.5-8. 0 Not Available [facility] (Lab) [address] [place], [address], 10/07/2023 12:38:42 10/07/19 24 10/07/2023 CBC/C OMPLE TE BLD COUNT W/DIF F lymphocytes, absolute count 1.51 x10'3 /uL 1.07-3 .43 Not Available [facility] (Lab) [address] [place], [address], 10/07/2023 12:38:42 10/07/19 24 10/07/2023 CBC/C OMPLE TE BLD COUNT W/DIF F monocytes, absolute count 0.75 x10'3 /uL 0.29-[address] [facility] (Lab) [address] [place], [address], 10/07/2023 12:38:42 10/07/19 24 10/07/2023 CBC/C OMPLE TE BLD COUNT W/DIF F eosinophils, absolute count 0.09 x10'3 /uL 0.02-[address] [facility] (Lab) [address] [place], [address], 10/07/2023 12:38:42 10/07/19 24 10/07/2023 CBC/C OMPLE TE BLD COUNT W/DIF F basophils, absolute count 0.09 x10'3 /uL 0.01-0 .[address] [facility] (Lab) [address] [place], [address], 10/07/2023 12:38:42 10/07/19 24 10/07/2023 CBC/C OMPLE TE BLD COUNT W/DIF F immature granulocytes ,absolute 0.07 x10'3 /uL 0.00-0 .[address] [facility] (Lab) [address] [place], [address], 10/07/2023 12:38:42 10/07/19 24 10/07/2023 CBC/C OMPLE TE BLD COUNT W/DIF F nucleated red blood cells 0.0 % -[address] [facility] (Lab) [address] [place], [address], 10/07/2023 12:38:42 10/07/19 24 10/07/2023 CBC/C OMPLE TE BLD COUNT W/DIF F NRBC# 0.00 x10'3 /uL Not Available [facility] (Lab) [address] [place], [address], 10/07/2023 12:38:42 10/07/19 24 10/07/2023 LIPID PANEL cholesterol 182 mg/dL 140-19 9 [facility] NSUS RECOM MENDA TION FOR EARNEST STERO L: ADULT CHILD LOW RISK: <200 <170 BORDE RLINE : <200- 239 ----- HIGH RISK: >240 >[address] [facility] (Lab) [address] [place], [address], 10/07/2023 12:50:26 10/07/19 24 10/07/2023 LIPID PANEL triglyceride s 166 mg/dL 0-150 high [facility] NSUS REPOR T RECOM MENDA TION FOR TRIGL YCERI ARGENIS: ADULT CHILD LOW RISK: <150 ----- BODER LINE: 150-1 99 ----- HIGH RISK: >200 ----- Not Available [facility] (Lab) [address] [place], [address], 10/07/2023 12:50:26 10/07/19 24 10/07/2023 LIPID PANEL HDL cholesterol 40 mg/dL 40- Not Available [facility] (Lab) [address] [place], [address], 10/07/2023 12:50:26 10/07/19 24 10/07/2023 LIPID PANEL LDL cholesterol, calculated 109 mg/dL 0-130 [facility] NSUS REPOR T RECOM MENDA TIONS FOR LDL: ADULT CHILD LOW RISK <130 <110 (OPTI MAL LDL) <100 ----- BORDE RLINE : 130-1 59 ----- HIGH RISK: >160 >130 A TRIGL YCERI DE RESUL T >400 INVAL IDATE S THE CALCU LATIO N FOR LDL FRACT IONAT ION - THE LDL RESUL T WILL NOT BE REPOR MARIA ELENA. Not Available [facility] (Lab) [address] [place], [address], 10/07/2023 12:50:26 10/07/19 24 10/07/2023 COMPR EHENS GALLITO METAB OLIC PANEL sodium 134 mmol/ L 137-[address] [facility] (Lab) [address] [place], [address], 10/07/2023 12:50:38 10/07/19 24 10/07/2023 COMPR EHENS GALLITO METAB OLIC PANEL potassium 4.6 mmol/ L 3.5-5. [address] [facility] (Lab) [address] [place], [address], 10/07/2023 12:50:38 10/07/19 24 10/07/2023 COMPR EHENS GALLITO METAB OLIC PANEL chloride 103 mmol/ L 98-[address] [facility] (Lab) [address] [place], [address], 10/07/2023 12:50:38 10/07/19 24 10/07/2023 COMPR EHENS GALLITO METAB OLIC PANEL carbon dioxide 26 mmol/ L 22-30 Not Available [facility] (Lab) [address] [place], [address], 10/07/2023 12:50:38 10/07/19 24 10/07/2023 COMPR EHENS GALLITO METAB OLIC PANEL anion gap 9.6 mmol/ L 14-[address] [facility] (Lab) [address] [place], [place], [address], 10/07/2023 12:50:38 10/07/19 24 10/07/2023 COMPR EHENS GALLITO METAB OLIC PANEL glucose 116 mg/dL 70-[address] [facility] (Lab) [address] [place], [address], 10/07/2023 12:50:38 10/07/19 24 10/07/2023 COMPR EHENS GALLITO METAB OLIC PANEL BUN 12 mg/dL 8-19 Not Available [facility] (Lab) [address] [place], [address], 10/07/2023 12:50:38 10/07/19 24 10/07/2023 COMPR EHENS GALLITO METAB OLIC PANEL creatinine 0.58 mg/dL 0.66-1 [address] [facility] (Lab) [address] [place], [address], 10/07/2023 12:50:38 10/07/19 24 10/07/2023 COMPR EHENS GALLITO METAB OLIC PANEL GFR >60 Refer ence Range : [place] GFR Healt hy Adult : >60 mL/mi n/1.7 3 m2 Chron ic Kidne y Disea se: 15-60 mL/mi n/1.7 3 m2 Kidne y Failu re: <15/m L/min /1.73 m2 www.n iddk. nih.g ov The MDRD study equat ion has not been valid ated in child deidra <18 years of age; pregn ant women ; the elder ly >85 years of age; or in some racia l or ethni c subgr oups, such as Hispa nics. Outsi de the valid ated eric eters , estim ated GFR is less accur ate, requi ring clini baljit judgm ent on a case- by-ca se basis . Clini baljit inter preta tion for other races and ages must be made by the clini hermes. The MDRD study equat ion has not been valid ated for the evalu ation of serum creat inine relat ed to nutri denilson l statu s or medic ation usage . For perso ns <18 years of age, a pedia tric GFR calcu lator is avail able on the [facility] websi te: https ://eda reid.vandana saul.rashaad chua/pr ofess ional s/kdo qi/gf r_cal culat or Not Available [facility] (Lab) [address] [place], [address], 10/07/2023 12:50:38 10/07/19 24 10/07/2023 COMPR EHENS GALLITO METAB OLIC PANEL alkaline phosphatase 82 U/L 38-126 Not Available [facility] (Lab) [address] [place], [address], 10/07/2023 12:50:38 10/07/19 24 10/07/2023 COMPR EHENS GALLITO METAB OLIC PANEL alanine aminotransfe rase 35 U/L 0-[address] [facility] (Lab) [address] [place], [address], 10/07/2023 12:50:38 10/07/19 24 10/07/2023 COMPR EHENS GALLITO METAB OLIC PANEL aspartate aminotransfe rase 31 U/L 15-[address] [facility] (Lab) [address] [place], [address], 10/07/2023 12:50:38 10/07/19 24 10/07/2023 COMPR EHENS GALLITO METAB OLIC PANEL bilirubin, total 0.40 mg/dL 0.20-[address] [facility] (Lab) [address] [place], [address], 10/07/2023 12:50:38 10/07/19 24 10/07/2023 COMPR EHENS GALLITO METAB OLIC PANEL calcium 9.1 mg/dL 8.4-[address] [facility] (Lab) [address] [place], [address], 10/07/2023 12:50:38 10/07/19 24 10/07/2023 COMPR EHENS GALLITO METAB OLIC PANEL total protein 6.9 g/dL 6.3-8. [address] [facility] (Lab) [address] [place], [address], 10/07/2023 12:50:38 10/07/19 24 10/07/2023 COMPR EHENS GALLITO METAB OLIC PANEL albumin 4.2 g/dL 3.0-4. [address] [facility] (Lab) [address] [place], [address], 10/07/2023 12:50:38 10/07/19 24 10/07/2023 COMPR EHENS GALLITO METAB OLIC PANEL globulin 2.7 g/dL 2.6-4. [address] [facility] (Lab) [address] [place], [address], 10/07/2023 12:50:38 10/07/19 24 10/07/2023 COMPR EHENS GALLITO METAB OLIC PANEL A/G ratio 1.6 ratio 1.0-2. [address] [facility] (Lab) [address] [place], [address], 10/07/2023 12:50:38 10/07/19 24 10/07/2023 T4 FREE free T4 0.97 NG/dL 0.78-[address] [facility] (Lab) [address] [place], [address], 10/07/2023 13:11:37 10/07/19 24 10/07/2023 TSH thyroid-stim ulating hormone 1.270 uIU/m L 0.465- 4.[address] [facility] (Lab) [address] [place], [address], 10/07/2023 13:44:08 10/07/19 24 10/07/2023 HEMOG LOBIN A1C HA1C 6.4 % 4.0-6. 0 high Diabe lindsay Scree kerrie Crite janusz: <5.7% Consi stent with absen ce of diabe lindsay 5.7-6 .4% Consi stent with incre ased risk for diabe lindsay (pred iabet es) >OR=6 .5% Consi stent with diabe lindsay REFER ENCE: Diabe lindsay Care 2016, 39(Benson ppl.1 ):s13 -s22 Not Available [facility] (Lab) [address] [place], [address], 10/07/2023 13:53:04 10/07/19 24 10/07/2023 MICRO ALBUM IN RANDO M URINE microalbumin , urine 350.3 mg/L 0.0-16 .[address] [facility] (Lab) [address] [place], [address], 10/07/2023 15:33:48 02/03/20 24 02/03/2024 CBC/C OMPLE TE BLD COUNT W/DIF F white blood cells 9.5 x10'3 /uL 4.2-[address] [facility] (Lab) [address] [place], [address], 02/03/2024 12:01:38 02/03/20 24 02/03/2024 CBC/C OMPLE TE BLD COUNT W/DIF F red blood cells 5.66 x10'6 /uL 4.10-[address] [facility] (Lab) [address] [place], [address], 02/03/2024 12:01:38 02/03/2002/03/2024 CBC/C OMPLE TE BLD COUNT W/DIF F hemoglobin 16.5 g/dL 13.2-[address] [facility] (Lab) [address] [place], [address], 02/03/2024 12:01:38 02/03/2002/03/2024 CBC/C OMPLE TE BLD COUNT W/DIF F hematocrit 48.8 % 39.3-[address] [facility] (Lab) [address] [place], [address], 02/03/2024 12:01:38 02/03/2002/03/2024 CBC/C OMPLE TE BLD COUNT W/DIF F mean red cell volume 86.2 fL 80.0-9 7.0 Not Available [facility] (Lab) [address] [place], [address], 02/03/2024 12:01:38 02/03/2002/03/2024 CBC/C OMPLE TE BLD COUNT W/DIF F mean red cell hemoglobin 29.2 pg 27.0-[address] [facility] (Lab) [address] [place], [address], 02/03/2024 12:01:38 02/03/2002/03/2024 CBC/C OMPLE TE BLD COUNT W/DIF F mean RBC HGB concentratio n 33.8 g/dL 31.0-[address] [facility] (Lab) [address] [place], [address], 02/03/2024 12:01:38 02/03/2002/03/2024 CBC/C OMPLE TE BLD COUNT W/DIF F red cell distribution width 14.3 % 11.8-[address] [facility] (Lab) [address] [place], [address], 02/03/2024 12:01:38 02/03/2002/03/2024 CBC/C OMPLE TE BLD COUNT W/DIF F platelets 405 x10'3 /uL 150-40 0 high Not Available [facility] (Lab) [address] [place], [address], 02/03/2024 12:01:38 02/03/2002/03/2024 CBC/C OMPLE TE BLD COUNT W/DIF F mean platelet volume 9.9 fL 9.0-[address] [facility] (Lab) [address] [place], [address], 02/03/2024 12:01:38 02/03/2002/03/2024 CBC/C OMPLE TE BLD COUNT W/DIF F neutrophils 71.0 % 39.0-[address] [facility] (Lab) [address] [place], [address], 02/03/2024 12:01:38 02/03/20 24 02/03/2024 CBC/C OMPLE TE BLD COUNT W/DIF F lymphocytes 16.3 % 16.0-[address] [facility] (Lab) [address] [place], [address], 02/03/2024 12:01:38 02/03/2002/03/2024 CBC/C OMPLE TE BLD COUNT W/DIF F monocytes 9.1 % 5.0-[address] [facility] (Lab) [address] [place], [address], 02/03/2024 12:01:38 02/03/20 24 02/03/2024 CBC/C OMPLE TE BLD COUNT W/DIF F eosinophils 1.6 % 1.0-7. [address] [facility] (Lab) [address] [place], [address], 02/03/2024 12:01:38 02/03/2002/03/2024 CBC/C OMPLE TE BLD COUNT W/DIF F basophils 1.2 % 0.0-2. [address] [facility] (Lab) [address] [place], [address], 02/03/2024 12:01:38 02/03/2002/03/2024 CBC/C OMPLE TE BLD COUNT W/DIF F immature granulocytes 0.8 % 0.00-0 .[address] [facility] (Lab) [address] [place], [address], 02/03/2024 12:01:38 02/03/2002/03/2024 CBC/C OMPLE TE BLD COUNT W/DIF F neutrophils, absolute count 6.75 x10'3 /uL 1.5-8. 0 Not Available [facility] (Lab) [address] [place], [address], 02/03/2024 12:01:38 02/03/2002/03/2024 CBC/C OMPLE TE BLD COUNT W/DIF F lymphocytes, absolute count 1.55 x10'3 /uL 1.07-[address] [facility] (Lab) [address] [place], [address], 02/03/2024 12:01:38 02/03/2002/03/2024 CBC/C OMPLE TE BLD COUNT W/DIF F monocytes, absolute count 0.86 x10'3 /uL 0.29-[address] [facility] (Lab) [address] [place], [address], 02/03/2024 12:01:38 02/03/2002/03/2024 CBC/C OMPLE TE BLD COUNT W/DIF F eosinophils, absolute count 0.15 x10'3 /uL 0.02-[address] [facility] (Lab) [address] [place], [address], 02/03/2024 12:01:38 02/03/20 24 02/03/2024 CBC/C OMPLE TE BLD COUNT W/DIF F basophils, absolute count 0.11 x10'3 /uL 0.01-0 .[address] [facility] (Lab) [address] [place], [address], 02/03/2024 12:01:38 02/03/2002/03/2024 CBC/C OMPLE TE BLD COUNT W/DIF F immature granulocytes ,absolute 0.08 x10'3 /uL 0.00-0 .[address] [facility] (Lab) [address] [place], [address], 02/03/2024 12:01:38 02/03/20 24 02/03/2024 CBC/C OMPLE TE BLD COUNT W/DIF F nucleated red blood cells 0.0 % -[address] [facility] (Lab) [address] [place], [address], 02/03/2024 12:01:38 02/03/20 24 02/03/2024 CBC/C OMPLE TE BLD COUNT W/DIF F NRBC# 0.00 x10'3 /uL Not Available [facility] (Lab) [address] [place], [address], 02/03/2024 12:01:38 02/03/2002/03/2024 MICRO ALBUM IN RANDO M URINE microalbumin , urine 532.3 mg/L 0.0-16 .[address] [facility] (Lab) [address] [place], [address], 02/03/2024 12:41:18 02/03/2002/03/2024 LIPID PANEL cholesterol 199 mg/dL 140-19 9 NIH LEDA NSUS RECOM MENDA TION FOR EARNEST STERO L: ADULT CHILD LOW RISK: <200 <170 BORDE RLINE : <200- 239 ----- HIGH RISK: >240 >[address] [facility] (Lab) [address] [place], [address], 02/03/2024 12:42:08 02/03/20 24 02/03/2024 LIPID PANEL triglyceride s 149 mg/dL 0-150 NIH LEDA NSUS REPOR T RECOM MENDA TION FOR TRIGL YCERI ARGENIS: ADULT CHILD LOW RISK: <150 ----- BODER LINE: 150-1 99 ----- HIGH RISK: >200 ----- Not Available [facility] (Lab) [address] [place], [address], 02/03/2024 12:42:08 02/03/20 24 02/03/2024 LIPID PANEL HDL cholesterol 42 mg/dL 40- Not Available [facility] (Lab) [address] [place], [address], 02/03/2024 12:42:08 02/03/20 24 02/03/2024 LIPID PANEL LDL cholesterol, calculated 127 mg/dL 0-130 NIH LEDA NSUS REPOR T RECOM MENDA TIONS FOR LDL: ADULT CHILD LOW RISK <130 <110 (OPTI MAL LDL) <100 ----- BORDE RLINE : 130-1 59 ----- HIGH RISK: >160 >130 A TRIGL YCERI DE RESUL T >400 INVAL IDATE S THE CALCU LATIO N FOR LDL FRACT IONAT ION - THE LDL RESUL T WILL NOT BE REPOR MARIA ELENA. Not Available [facility] (Lab) [address] [place], [address], 02/03/2024 12:42:08 02/03/20 24 02/03/2024 COMPR EHENS GALLITO METAB OLIC PANEL sodium 134 mmol/ L 137-14 5 low Not Available [facility] (Lab) [address] [place], [address], 02/03/2024 12:42:28 02/03/2002/03/2024 COMPR EHENS GALLITO METAB OLIC PANEL potassium 4.3 mmol/ L 3.5-5. 1 Not Available [facility] (Lab) [address] [place], [address], 02/03/2024 12:42:28 02/03/2002/03/2024 COMPR EHENS GALLITO METAB OLIC PANEL chloride 98 mmol/ L 98-107 Not Available [facility] (Lab) [address] [place], [address], 02/03/2024 12:42:28 02/03/2002/03/2024 COMPR EHENS GALLITO METAB OLIC PANEL carbon dioxide 30 mmol/ L 22-30 Not Available [facility] (Lab) [address] [place], [address], 02/03/2024 12:42:28 02/03/2002/03/2024 COMPR EHENS GALLITO METAB OLIC PANEL anion gap 10.3 mmol/ L 14-22 low Not Available [facility] (Lab) [address] [place], [address], 02/03/2024 12:42:28 02/03/2002/03/2024 COMPR EHENS GALLITO METAB OLIC PANEL glucose 122 mg/dL 70-99 high Not Available [facility] (Lab) [address] [place], [address], 02/03/2024 12:42:28 02/03/20 24 02/03/2024 COMPR EHENS GALLITO METAB OLIC PANEL BUN 9 mg/dL 8-[address] [facility] (Lab) [address] [place], [address], 02/03/2024 12:42:28 02/03/20 24 02/03/2024 COMPR EHENS GALLITO METAB OLIC PANEL creatinine 0.65 mg/dL 0.66-1 [address] [facility] (Lab) [address] [place], [address], 02/03/2024 12:42:28 02/03/20 24 02/03/2024 COMPR EHENS GALLITO METAB OLIC PANEL GFR >60 Refer ence Range : [place] GFR Healt hy Adult : >60 mL/mi n/1.7 3 m2 Chron ic Kidne y Disea se: 15-60 mL/mi n/1.7 3 m2 Kidne y Failu re: <15/m L/min /1.73 m2 www.n iddk. nih.g ov The MDRD study equat ion has not been valid ated in child deidra <18 years of age; pregn ant women ; the elder ly >85 years of age; or in some racia l or ethni c subgr oups, such as Hispa nics. Outsi de the valid ated eric eters , estim ated GFR is less accur ate, requi ring clini baljit judgm ent on a case- by-ca se basis . Clini baljit inter preta tion for other races and ages must be made by the clini hermes. The MDRD study equat ion has not been valid ated for the evalu ation of serum creat inine relat ed to nutri denilson l statu s or medic ation usage . For perso ns <18 years of age, a pedia tric GFR calcu lator is avail able on the F websi te: https ://ww w.kid dorys.o rg/pr ofess ional s/kdo qi/gf r_cal culat or Not Available [facility] (Lab) [address] [place], [address], 02/03/2024 12:42:28 02/03/20 24 02/03/2024 COMPR EHENS GALLITO METAB OLIC PANEL alkaline phosphatase 96 U/L 38-126 Not Available [facility] (Lab) [address] [place], [address], 02/03/2024 12:42:28 02/03/20 24 02/03/2024 COMPR EHENS GALLITO METAB OLIC PANEL alanine aminotransfe rase 36 U/L 0-[address] [facility] (Lab) [address] [place], [address], 02/03/2024 12:42:28 02/03/2002/03/2024 COMPR EHENS GALLITO METAB OLIC PANEL aspartate aminotransfe rase 30 U/L 15-[address] [facility] (Lab) [address] [place], [address], 02/03/2024 12:42:28 02/03/2002/03/2024 COMPR EHENS GALLITO METAB OLIC PANEL bilirubin, total 0.40 mg/dL 0.20-[address] [facility] (Lab) [address] [place], [address], 02/03/2024 12:42:28 02/03/20 24 02/03/2024 COMPR EHENS GALLITO METAB OLIC PANEL calcium 9.5 mg/dL 8.4-[address] [facility] (Lab) [address] [place], [address], 02/03/2024 12:42:28 02/03/2002/03/2024 COMPR EHENS GALLITO METAB OLIC PANEL total protein 6.9 g/dL 6.3-8. [address] [facility] (Lab) [address] [place], [address], 02/03/2024 12:42:28 02/03/20 24 02/03/2024 COMPR EHENS GALLITO METAB OLIC PANEL albumin 4.1 g/dL 3.0-4. [address] [facility] (Lab) [address] [place], [address], 02/03/2024 12:42:28 02/03/20 24 02/03/2024 COMPR EHENS GALLITO METAB OLIC PANEL globulin 2.8 g/dL 2.6-4. [address] [facility] (Lab) [address] [place], [address], 02/03/2024 12:42:28 02/03/20 24 02/03/2024 COMPR EHENS GALLITO METAB OLIC PANEL A/G ratio 1.5 ratio 1.0-2. [address] [facility] (Lab) [address] [place], [address], 02/03/2024 12:42:28 02/03/2002/03/2024 T4 FREE free T4 1.08 NG/dL 0.78-[address] [facility] (Lab) [address] [place], [address], 02/03/2024 12:59:38 02/03/2002/03/2024 HEMOG LOBIN A1C HA1C 6.4 % 4.0-6. 0 high Diabe lindsay Scree kerrie Crite janusz: <5.7% Consi stent with absen ce of diabe lindsay 5.7-6 .4% Consi stent with incre ased risk for diabe lindsay (pred iabet es) >OR=6 .5% Consi stent with diabe lindsay REFER ENCE: Diabe lindsay Care 2016, 39(Benson ppl.1 ):s13 -s22 Not Available [facility] (Lab) [address] [place], [address], 02/03/2024 13:07:09 02/03/2002/03/2024 TSH thyroid-stim ulating hormone 1.250 uIU/m L 0.465- 4.[address] [facility] (Lab) [address] [place], [address], 02/03/2024 13:15:29 09/01/18/2023 LDCT, chest , for lung cance r scree kerrie [facility] [address] [facility] [place] [id number] Patien t Name: DUC MARRERO ion #: [id number] Sex: M : 1955 6 Dictat ed By: Yen ruelas Attend ing Physic wallace: JENNIFER DELATORRE Physic wallace: RICHARD RAZA Exam Date: 2022 10:25 AM Exam Name: CT LOW DOSE CNCR SCREEN ING Admitt ing Diagno sis(es ): CLINIC AL INFORM ATION: Lung cancer screen ing. Currblair t smoker . 50+ pack-y ear histor y of smokin g. TECHNI QUE: Low dose axial CT images of the chest were obtain ed withou t contra st for lung cancer screen ing purpos es. Images were displa yed in lung and soft tissue window s. Carias l and sagitt al reform atted images were obtain ed, review ed, and stored . One or more of the follow ing dose reduct ion techni ques were used: Automa maria elena exposu re contro l. Adjust ment of mA and/or kV accord ing to patien t size. CTDIvo l = 2.09 mGy DLP = 94.2 mGy-cm COMPAR LISA: Prior low dose CT dated 12/31/19 22 and previo us low dose CT exams dating back to 10/25/19 20. FINDIN GS: Stable 3 mm nodule in the right lung apex adjace nt to the latera l pleura l surfac e (axial image 73 of 379). 7.5 mm ground glass nodule in the anteri or aspect of the right upper lobe (image 151), unchan ged. Stable 4 mm nodule in the right middle lobe (image 187). There are modera te emphys ematou s change s. Heart size is within normal limits . Dense carias ry artery calcif icatio n. Modera te athero sclero tic calcif icatio n of the thorac ic aorta with no aneury sm. No medias tinal or hilar lympha denopa thy. Chest wall is unrema rkable . Limite d low-do se, noncon trast enhanc ed images of the upper abdome n demons trate multip le cysts in the liver. Stable left adrena l adenom a. No signif icant osseou s abnorm ality. IMPRES JOSEFA: Stable pulmon per nodule s. Lung Rads Catego ry: 2, benign . Recomm endati on: Contin ue annual screen ing with low dose CT in 12 months . Electr onical ly Signed by: Yen ruelas at 2022 13:10: 33 PM Page [email or web address] [facility] (Imaging) [address] [place], [address], 01/26/2023 16:43:16 01/19/20 23 01/18/2023 LDCT, chest , for lung cance r scree kerrie No observ ation record ed. [email or web address] (Radiology) [address] [place], [address], 04/29/2023 12:09:51 01/19/20 23 01/18/2023 LDCT, chest , for lung cance r scree kerrie No observ ation record ed. [email or web address] (Radiology) [address] [place], [address], 04/29/2023 12:09:52 08/12/19 24 08/12/2023 US, echoc ardio gram No observ ation record ed. [facility] [address], [place], [address], 02/08/2024 15:13:21 08/12/19 24 08/12/2023 US, paula x, arter ial, lower extre mity No observ ation record ed. [email or web address] [facility] [address], [place], [address], 02/08/2024 15:13:21 08/12/19 24 08/12/2023 US, duple x, aorta No observ ation record ed. [email or web address] [facility] [address], [place], [address], 02/08/2024 15:13:22 08/19/19 24 08/19/2023 nucle ar stres s test No observ ation record ed. [email or web address] [facility] [address], [place], [address], 02/08/2024 15:13:22 11/04/19 24 XR, knee No observ ation record ed. [email or web address] [address] [facility] [address], [place], [address], 11/04/2023 09:43:30 12/14/19 24 10/10/2023 imagi ng/di agnos tic resul t No observ ation record ed. [email or web address] [facility] [address] [facility] [address], [place], [address], 03/02/2024 16:57:42 02/03/20 24 02/03/2024 LDCT, chest , for lung cance r scree [facility] [address] [facility], [place] [address] Patien t Name: MORIAHPaul Jakob DUC Access ion #: [id number] Sex: M : 1955 4 Dictat ed By: Duc Gomez ms Attend ing Physic wallace: JENNIFER DELATORRE Orderi ng Physic wallace: JENNIFER DELATORRE Exam Date: 2023 08:34 AM Exam Name: CT LOW DOSE CNCR SCREEN ING Admitt ing Diagno sis(es ): CT Chest withou t intrav enous contra st INDICA TION: 68 years old, Male; tobacc o use. TECHNI QUE: Multid etecto r spiral CT of the chest was perfor med from the lung apices to the upper abdome n utiliz ing axial images . Carias l and sagitt al multip lanar reform ats were perfor med. Radiat ion Dose : 1. Chest: CTDI volume is 2.0 mGy. Dose-l ength produc t is 80.2 mGy*cm The dose indica tors for CT are the volume Comput ed Tomogr aphy (CT) Dose Index (CTDIv ol) and the Dose Length Produc t (DLP), and are measur ed in units of mGy and mGy-cm , respec tively . These indica tors are not patien t dose, but values genera maria elena from the CT scanne r acquis ition factor s. The report includ es radiat ion exposu re data for exposu res receiv ed during this examin ation. Compar lisa: CT LOW DOSE CNCR SCREEN ING on DOS: 3 Findin gs: Lower neck: Unrema rkable thyroi d Lungs: Parase ptal and centri lobula r emphys jay. There is a 3 mm nodule in the latera l right upper lobe (serie s 205, image 54). 7 mm ground -glass nodule in the anteri or right upper lobe ( series 205, image 132), stable . 4 mm right middle lobe pulmon per nodule ( series 205, image 165), stable . No eviden ce of new pulmon per nodule s. Pleura : No pleura l effusi ons. No pneumo thorax . Page 1 [facility] [place] [id number] Patien t Name: DUC MARRERO Access ion #: [id number] Sex: M : 1955 4 Dictat ed By: Duc Gomez ms Attend ing Physic wallace: MACY [facility] Physic wallace: JENNIFER DELATORRE Exam Date: 2023 08:34 AM Exam Name: CT LOW DOSE CNCR SCREEN ING Admitt ing Diagno sis(es ): Heart/ Vascul ar Struct ures: The heart is normal in size. No perica rdial effusi on. There are carias ry artery calcif icatio ns. Normal calibe r thorac ic aorta. Athero sclero tic calcif icatio ns in the aortic arch. The main pulmon per artery is normal in calibe r. Lymph Nodes: No adenop athy Muscul oskele bhavya: No fractu re or suspic ious bone lesion s. Body wall: Bilate ral gyneco mastia . Upper abdome n: Left adrena l adenom a. Hepati c cysts. IMPRES JOSEFA: 1. Stable pulmon per nodule s. No eviden ce of new pulmon per nodule . 2. Emphys jay. 3. Carias ry artery calcif icatio ns. 4. Stable upper abdomi nal findin gs. Lung-R ADS: Catego ry 2: Recomm endati on: Contin ue annual screen ing with LDCT [email or web address]: [email or web address] Electr onical ly Signed by: Duc Gomez ms at 2023 09:03: 09 AM Page [email or web address] [facility] (Imaging) [address] [place], [address], 02/08/2024 15:13:23 02/03/20 24 02/03/2024 LDCT, chest , for lung dorace r jody sy No observ ation record ed. [facility] [address] [place], [address], 02/08/2024 15:13:23 Result Notes None recorded. Problems Name Problem SNOMED Code Status Onset Date Resolution Date Notes Provider Name and Address Organization Details Recorded Time [place] 64167209 Active 2022 Not Available [facility] 15:01:35 [employer] a 48737894 Active 2022 Not Available [facility] 15:01:35 Type 2 diabetes mellitus without complicati on 621870676 Active 2022 Not Available [facility] 15:01:35 Peripheral vascular disease 354396124 Active 2022 Not Available [facility] 3 15:01:35 Erythrocyt osis 953308810 Active 2022 Not Available [facility] 3 15:01:35 Essential hypertensi on 11170119 Active 2022 Not Available [facility] 3 15:01:36 Primary erectile dysfunctio n 110640963 Active 2022 Not Available [facility] 3 15:01:36 Thrombocyt osis 6265128 Active 2022 Not Available [facility] 3 15:01:36 Sensorineu ral hearing loss of bilateral ears 702516211 Active 2022 Not Available [facility] 3 15:01:35 Obstructiv e sleep apnea syndrome 20589632 Active 2022 Not Available [facility] 3 15:01:36 Smoker 79793434 Active 2022 Not Available [facility] 3 15:01:36 Right inguinal hernia 155165310 Active 2022 Not Available [facility] 3 15:01:35 Ventral incisional hernia 058398736 Active 2022 Not Available [facility] 3 15:01:35 Pain of right knee joint 4331607816975 00 Active 2023 Franchesca Wagner, ATC L null, [place] [facility] [employer] 4 09:22:21 Osteoarthr itis of right knee joint 3942295636704 00 Active 2023 DOMINIK Sanchez [address], [address] , [place] - [facility] [employer] 4 09:43:43 Acute sinusitis 60760875 Active 2024 VICENTE Montanez, [place] - [facility] 5 10:55:05 Testostero ne level below reference range 172663584 Active Not Available [facility] 3 15:01:35 Dry skin 97456535 Active 2020 Not Available [facility] 3 15:01:35 Chest pain 16913521 Active Not Available [facility] 3 15:01:35 Disorder of prostate 25492705 Active 2021 Not Available [facility] 3 15:01:35 Vitamin D deficiency 88731678 Active 2021 Not Available [facility] 3 15:01:35 Bunion 818412771 Active 2020 Not Available [facility] 3 15:01:36 Type 2 diabetes mellitus 72648923 Active 2017 Not Available [facility] 3 15:01:36 Anxiety 65561911 Active Not Available [facility] 3 15:01:36 Hyperlipid emia 61349915 Active 2021 Not Available [facility] 3 15:01:36 Tinea pedis 3895363 Active 2017 Not Available [facility] 3 15:01:36 Hyperglyce flo 69582885 Active Not Available [facility] 3 15:01:36 Notes:Medical History: Anxie ty R>L high frequency hearing loss Bilateral tinnitus Rhinitis with postnasal drip Mild OSAHS, AHI = 13, 10/29/21 Hypertension Mixed hyperlipidemia T2DM with microalbuminuria Bilateral pulm nodules AMELIA Right hepatic cyst Hypogonadism CKD BPH ED Vit D deficiency Tinea pedis Bilateral bunions Procedure History: T&A 1964 Left inguinal herniorrhaphy 1994 Problem Notes None recorded. Procedures Surgical History Date Name Laterality Status Provider Name and Address Organization Details Recorded Time 10/12/19 24 Medicare Wellness CPT Code, subsequent completed Theodore Ruelas LPN [employer] 10/11/2023 10:16:40 10/12/19 24 Advanced Care Planning completed Theodore Ruelas LPN [facility] 10/12/2023 12:18:03 07/06/19 24 Medicare Wellness CPT Code, subsequent completed Laura Jansen [facility] 07/06/2023 10:26:36 09/08/19 23 Hernia Surgery completed Jolene Onofre MA [facility] 09/14/2022 10:49:30 05/12/19 11 Colonoscopy completed Not Available [facility] 06/25/19 04:42:10 Hernia Surgery completed Not Available [facility] 06/24/2022 04:42:10 Imaging Results Imaging Date Name Status LastModified by Organization Details LastModified Time 01/18/2023 LDCT, chest, for lung cancer screening completed [email or web address] [facility] (Imaging) [address] [place], [address], 01/26/2023 16:43:16 01/18/2023 LDCT, chest, for lung cancer screening completed [email or web address] [facility] (Radiology) [address] [place], [address], 04/29/2023 12:09:51 01/18/2023 LDCT, chest, for lung cancer screening completed [email or web address] [facility] (Radiology) [address] [place], [address], 04/29/2023 12:09:52 08/12/2023 US, echocardiogram completed [email or web address] [facility] [address], [place], [address], 02/08/2024 15:13:21 08/12/2023 US, duplex, arterial, lower extremity completed [email or web address] [facility] [address], [place], [address], 02/08/2024 15:13:21 08/12/2023 US, duplex, aorta completed [email or web address] [facility] [address], [place], [address], 02/08/2024 15:13:22 08/19/2023 nuclear stress test completed [email or web address] [facility] [address], [place], [address], 02/08/2024 15:13:22 11/04/2023 XR, knee completed [email or web address] [facility] [address], [place], [address], 11/04/2023 09:43:30 10/10/2023 imaging/diagnostic result active [email or web address] [facility] [address], [place], [address], 03/02/2024 16:57:42 02/03/2024 LDCT, chest, for lung cancer screening completed [address] (Imaging) [address] [place], [address], 02/08/2024 15:13:23 02/03/2024 LDCT, chest, for lung cancer screening completed [address] [place], [address], 02/08/2024 15:13:23 Procedure Notes None recorded. Medical Equipment None Reported. Allergies Allergen ID Allergen Name Allergen Category Reaction Reaction Severity Criticality Documentation Date Start Date Code Code System Note Provider Name and Address Organization Details Recorded Time 8973 Iodinated contrast media (substanc e) medicatio n Not available Not available Not available 06/24/2022 61286 2004 SNOMED [facility] Available [facility] 3 05:06:49 Medications Name Sig Start Date Stop Date Status Note LastModified by Organization Details LastModified Time losartan 50 mg tablet TAKE 1 TABLET BY MOUTH TWICE DAILY 07/07 completed Not Available Not Available Not Available carisopro dol 350 mg tablet active Not Available Not Available No t Available amoxicill in 500 mg capsule TAKE 1 CAPSULE BY MOUTH EVERY 8 HOURS FOR 7 DAYS 07/07 completed Not Available Not Available Not Available atorvasta tin 40 mg tablet TAKE 1 TABLET BY MOUTH EVERY DAY 01/12 completed Not Available Not Available Not Available metformin 500 mg tablet TAKE 1 TABLET BY MOUTH TWICE DAILY active Not Available Not Available No t Available prednison e 10 mg tablet active Not Available Not Available Not Available ammonium lactate 12 % lotion Apply to feet daily as needed-n ot in between toes active Not Available Not Available No t Available azithromy kathe 250 mg tablet TAKE 2 TABLETS (500 MG) BY ORAL ROUTE ONCE DAILY FOR 1 DAY THEN 1 TABLET (250 MG) BY ORAL ROUTE ONCE DAILY FOR 4 DAYS active Not Available Not Available No t Available metoprolo l tartrate 100 mg tablet TAKE 1 TABLET BY MOUTH 1 HOUR BEFORE CTA 02/07 completed Not Available Not Available Not Available cephalexi n 250 mg capsule TK 1 C PO Q 6 H FOR 7 DAYS 08/12 completed Not Available Not Available Not Available gentian peter 1 % topical solution Apply to left toe daily 10/06 completed Not Available Not Available Not Available clopidogr el 75 mg tablet TK 1 T PO D active Not Available Not Available No t Available ciproflox acin 500 mg tablet Take 1 tablet twice a day by oral route for 2 days. active Not Available Not Available No t Available triamcino lone acetonide 0.1 % topical cream EMI TO DRY SKIN D PRN active Not Available Not Available No t Available oxycodone -acetamin ophen 5 mg-325 mg tablet TAKE 1 TABLET BY MOUTH EVERY 4 TO 6 HOURS NEEDED 01/12 completed Not Available Not Available Not Available amoxicill in 875 mg tablet TAKE 1 TABLET BY MOUTH EVERY 12 HOURS UNTIL FINISHED 01/12 completed Not Available Not Available Not Available alprazola m 0.25 mg tablet TAKE 1 TABLET BY MOUTH DAILY NEEDED 2024 active Not Available Not Available Not Avai lable famotidin e 20 mg tablet TAKE 1 TABLET BY MOUTH EVERY NIGHT AT BEDTIME THE NIGHT BEFORE PROCEDUR E AND TAKE 1 TABLET BY MOUTH THE MORNING OF PROCEDUR E 02/07 completed Not Available Not Available Not Available tamsulosi n 0.4 mg capsule Take 1 capsule every day by oral route. 01/14 completed Not Available Not Available Not Available diphenhyd ramine 25 mg capsule TAKE 2 CAPSULES BY MOUTH THE MORNING OF TEST 02/07 completed Not Available Not Available Not Available Banophen 25 mg tablet TAKE 2 TABLETS BY MOUTH THE MORNING OF YOUR TEST 02/07 completed Not Available Not Available Not Available prednison e 50 mg tablet ON THE DAY BEFORE PROCEDUR E. TAKE 1 TABLET BY MOUTH AT 5 PM AND TAKE 1 TABLET BY MOUTH AT 9 PM. THEN THE DAY OF PROCEDUR E TAKE 1 IN THE MORNING 02/07 completed Not Available Not Available Not Available losartan 25 mg tablet Take 1 tablet every day by oral route for 90 days. 10/06 completed Not Available Not Available Not Available etodolac 400 mg tablet active Not Available Not Available Not Available pravastat in 20 mg tablet TAKE 1 TABLET BY MOUTH DAILY active Not Available Not Available No t Available lisinopri l 5 mg tablet Take 1 tablet every day by oral route for 90 days. 12/09 completed Not Available Not Available Not Available Baby Aspirin 81 mg chewable tablet Chew 1 tablet every day by oral route. 12/12 completed Not Available Not Available Not Available mupirocin 2 % topical ointment APPLY A SMALL AMOUNT TO THE toe ulcer daily active Not Available Not Available No t Available ergocalci ferol (vitamin D2) 1,250 mcg (50,000 unit) capsule Take 1 capsule every week by oral route. 08/16 completed Not Available Not Available Not Available irbesarta n 150 mg tablet TAKE 1 TABLET BY MOUTH DAILY active Not Available Not Available No t Available azelastin e 137 mcg (0.1 %) nasal spray USE 2 SPRAYS NASALLY TWICE DAILY active Not Available Not Available No t Available ketoconaz ole 2 % topical cream EMI EXT TO AB FEET D active Not Available Not Available No t Available losartan 100 mg tablet TAKE 1 TABLET BY MOUTH DAILY 02/[address] Barker Not Available Not Available Not Available fluoxetin e 20 mg capsule Take 1 capsule every day by oral route. 03/23 completed Not Available Not Available Not Available fluticaso ne propionat e 50 mcg/actua tion nasal spray,jasmeet pencynthiaon SHAKE LQ AND U 1 SPR IEN QD active Not Available Not Available No t Available loratadin e 10 mg tablet TK 1 T PO QD PRN active Not Available Not Available No t Available amoxicill in 875 mg-potass ium clavulana te 125 mg tablet Take 1 tablet twice a day by oral route for 7 days. active Not Available Not Available No t Available amoxicill in 500 mg-potass ium clavulana te 125 mg tablet 06/15 completed Not Available Not Available Not Available rosuvasta tin 20 mg tablet TK 1 T PO QD 12/12 completed Not Available Not Available Not Available rosuvasta tin 40 mg tablet Take 1 tablet every day by oral route for 90 days. 10/11 completed Not Available Not Available Not Available Cialis 20 mg tablet Take 1 tablet twice a week by oral route as directed . 11/03 completed Not Available Not Available Not Available cranberry TK 1T PO QD 01/14 completed Not Available Not Available Not Available Vitamin D3 daily 01/21 completed Not Available Not Available Not Available metformin 500mg every other day 07/06 completed Not Available Not Available Not Available Culturell e TK 1T PO QD 01/21 completed Not Available Not Available Not Available Androderm 2 mg/24 hour transderm al 24 hour patch Apply 1 patch every day by transder mal route. 03/23 completed Not Available Not Available Not Available Androderm 4 mg/24 hr transderm al 24 hour patch Apply 1 patch every day by transder mal route. 03/23 completed Not Available Not Available Not Available Flucelvax Quad (PF) 60 mcg (15 mcg x 4)/0.5 mL IM syringe ADM 0.5ML IM UTD 06/10 completed Not Available Not Available Not Available Fluad Quad (65yr up)(PF) 60 mcg (15 mcg x 4)/0.5mL IM syringe active Not Available Not Available Not Available Vitals Date Recorded Body height Body mass index (BMI) Body weight Body temperature Heart rate Oxygen saturation Oxygen saturation in Arterial blood by Pulse oximetry Systolic blood pressure Diastolic blood pressure Provider Name and Address Organization Details Last Updated DateTime 3 185.42 cm 27.7 kg/m2 60649.4 g 97.6 [degF] 78 /min 97 % 97 % 168 mm[Hg] 82 mm[Hg] Isa Song, MA MD [employer] [facility] 3 09:31:13 Date Recorded Body height Body mass index (BMI) Body weight Body temperature Heart rate Systolic blood pressure Diastolic blood pressure Provider Name and Address Organization Details Last Updated DateTime 4 185.42 cm 29.3 kg/m2 720887. 51 g 97.4 [degF] 78 /min 138 mm[Hg] 72 mm[Hg] VICENTE Montanez [facility] [employer] [facility] 4 10:08:23 Date Recorded Body height Body mass index (BMI) Body weight Body temperature Heart rate Systolic blood pressure Diastolic blood pressure Provider Name and Address Organization Details Last Updated DateTime 4 185.42 cm 28.6 kg/m2 87153.5 4 g 97.2 [degF] 84 /min 144 mm[Hg] 62 mm[Hg] Nkechi Moran [facility] [employer] [facility] 4 11:12:03 Date Recorded Respiratory rate Provider Name a nd Address Organization Details Last Updated DateTime 10/12/2023 16 /min Theodore Ruelas [employer] [facility] [employer] [facility] 10/12/2023 12:14:00 Date Recorded Body height Body weight Provider Name and Address Organization Details Last Updated DateTime 11/04/2023 185.42 cm 06356.32 g Franchesca aWgner [facility] L [facility] [employer] [facility] 11/04/2023 09:16:56 Date Recorded Body height Body mass index (BMI) Body weight Body temperature Heart rate Systolic blood pressure Diastolic blood pressure Provider Name and Address Organization Details Last Updated DateTime 4 185.42 cm 29.7 kg/m2 270938. 28 g 97.6 [degF] 78 /min 136 mm[Hg] 68 mm[Hg] Nkechi Moran [facility] [employer] [facility] [employer] [facility] 4 09:52:30 Social History Question Answer Notes LastModified by Organization Details LastModified Time Tobacco Smoking Status Current Every Day Smoker Not Available [facility] 06/24/2022 04:41:58 Do You Have An Advance Directive? No MIGRATION.0301 [id number] Information not available 06/24/2022 What Is Your Level Of Alcohol Consumption? None MIGRATION.0301 [id number] Information not available 06/24/2022 Do You Wear A Helmet When Biking? No Does Not Bike [email or web address] Information not available 10/12/2023 Are You Blind Or Do You Have Difficulty Seeing? No MIGRATION.0301 [id number] Information not available 06/24/2022 Is Blood Transfusion Acceptable In An Emergency? Yes [email or web address] Information not available 10/12/2023 What Is Your Level Of Caffeine Consumption? Heavy MIGRATION.0301 [id number] Information not available 06/24/2022 In The 14 Days Before Symptom Onset, Have You Had Close Contact With A Laboratory-conf irmed COVID-19 While That Case Was Ill? No MIGRATION.030 [id number] Information not available 06/24/2022 In The 14 Days Before Symptom Onset, Have You Had Close Contact With A Person Who Is Under Investigation For COVID-19 While That Person Was Ill? No MIGRATION.0301 [id number] Information not available 06/24/2022 Are You Currently Employed? No [email or web address] Information not available 10/12/2023 Are You Deaf Or Do You Have Serious Difficulty Hearing? No Tinitis [email or web address] Information not available 10/12/2023 What Type Of Diet Are You Following? REGULAR MIGRATION.030 198607 Information not available 06/24/2022 What Is The Highest Grade Or Level Of School You Have Completed Or The Highest Degree You Have Received? [id number] MIGRATION.030 257940 Information not available 06/24/2022 Do You Have An Electrostatic Air Filter? Yes MIGRATION.030 294464 Information not available 06/24/2022 What Is Your Occupation? Retired MIGRATION.030 216173 Information not available 06/24/2022 Have There Been Any Changes To Your Family Or Social Situation? Yes Sister In Law Moved In MIGRATION.0301 104730 Information not available 06/24/2022 What Is The Fluoride Status Of Your Home? Unknown MIGRATION.0301 [id number] Information not available 06/24/2022 Are There Any Guns Present In Your Home? No MIGRATION.0301 657128 Information not available 06/24/2022 Do You Have A Humidifier? Yes MIGRATION.0301 692125 Information not available 06/24/2022 Do You Use Insect Repellent Routinely? No MIGRATION.0301 796027 Information not available 06/24/2022 Where Do You Live? SingleLevelHouse MIGRATION.030 298887 Information not available 06/24/2022 Presence Of Domestic Violence No [email or web address] Information not available 10/12/2023 Guns Present In The Home? No [email or web address] Information not available 10/12/2023 Are You Able To Care For Yourself? Yes [email or web address] Information not available 10/12/2023 Are You Blind Or Do Yo Have Difficulty Seeing? No [email or web address] Information not available 10/12/2023 Are You Deaf Or Do You Have Serious Difficulty Hearing? No Tinitis [email or web address] Information not available 10/12/2023 General Stress Level? Moderate [email or web address] Information not available 10/12/2023 Live Alone Of With Others? With Others [email or web address] Information not available 10/12/2023 Do You Have A Medical Power Of Midlevel Provider? No MIGRATION.0301 [id number] Information not available 06/24/2022 Do You Have Moisture Problems In Your Home? Yes Few Leaks In Basement MIGRATION.0301 [id number] Information not available 06/24/2022 What Was The Date Of Your Most Recent Tobacco Screening? 02/08/2024 Information not available 02/08/2024 What Is Your Current Pack Years? 20-29packyears [email or web address] Information not available 10/12/2023 Do You Have Any Pets? Yes Dog [email or web address] Information not available 10/12/2023 What Is Your Relationship Status? MIGRATION.0301 344480 Information not available 06/24/2022 Do You Use Your Seat Belt Or Car Seat Routinely? Yes MIGRATION.0301 [id number] Information not available 06/24/2022 Do You Have Smoke And Carbon Monoxide Detectors In Your Home? Yes MIGRATION.0301 037519 Information not available 06/24/2022 At What Age Did You Start Smoking Tobacco? 15 Information not available 10/12/2023 Are You Passively Exposed To Smoke? Yes MIGRATION.0301 650715 Information not available 06/24/2022 Are There Any Smokers In Your House? Yes MIGRATION.0301 [id number] Information not available 06/24/2022 How Much Tobacco Do You Smoke? 1 PPD 3/4 Ppd Information not available 02/08/2024 What Types Of Sporting Activities Do You Participate In? None Information not available 10/12/2023 Do You Feel Stressed (tense, Restless, Nervous, Or Anxious, Or Unable To Sleep At Night)? [id number] [email or web address] Information not available 10/12/2023 Do You Use Any Illicit Or Recreational Drugs? No MIGRATION.0301 [id number] Information not available 06/24/2022 Do You Use Sunscreen Routinely? Yes MIGRATION.0301 904939 Information not available 06/24/2022 Has Tobacco Cessation Counseling Been Provided? Yes [email or web address] Information not available 10/12/2023 On What Date Was Tobacco Cessation Counseling Provided? 10/12/2023 [email or web address] Information not available 10/12/2023 How Many Years Have You Smoked Tobacco? 58 [email or web address] Information not available 10/12/2023 Have You Recently Traveled Abroad? No MIGRATION.0301 433220 Information not available 06/24/2022 Do You Have Any Dietary Restrictions? No MIGRATION.0301 368540 Information not available 06/24/2022 Do You Or Have You Ever Used Any Other Forms Of Tobacco Or Nicotine? No MIGRATION.0301 016469 Information not available 06/24/2022 Sex: Male Functional Status Question Answer Note LastModified by Organizat ion Details LastModified Time Do you have difficulty walking or climbing stairs? No MIGRATION.[id number] 026 Information not available 06/24/2022 Do you have transportation difficulties? No MIGRATION.[id number] 026 Information not available 06/24/2022 Are you able to walk? YESWOREST MIGRATION.5496422 026 Information not available 06/24/2022 Do you have difficulty doing errands alone? No MIGRATION.[id number] 026 Information not available 06/24/2022 Are you able to care for yourself? Yes MIGRATION.4154250 026 Information not available 06/24/2022 Do you have difficulty dressing or bathing? No MIGRATION.4375727 026 Information not available 06/24/2022 What is your exercise level? None [email or web address] Information not available 10/12/2023 Mental Status Question Answer Note LastModified by Organizat ion Details LastModified Time Do you have difficulty concentrating, remembering or making decisions? No MIGRATION.[id number] 6 Information not available 06/24/2022 Family History Relationship Description Onset Age of this Age Resolved Age Notes LastModified by Organization Details LastModified Time Mother Diabetes mellitus MIGRATION.538 [id number] Not available 06/24/2022 04:42:17 Mother Benign essential hypertension MIGRATION.913 [id number] Not available 06/24/2022 04:42:17 Mother History of giant cell arteritis MIGRATION.685 [id number] Not available 06/24/2022 04:42:17 Father Heart disease MIGRATION.672 [id number] Not available 06/24/2022 04:42:17 Father Renal failure syndrome MIGRATION.150 [id number] Not available 06/24/2022 04:42:17 Medical History Condition Response NERVE DISEASE N BLINDNESS N RHEUMATIC FEVER N KIDNEY STONES N BLADDER PROBLEMS N MRSA N OTHER # 1 N POLIO N LUNG DISEASE/DISORDER N HISTORY OF DRUG ABUSE N RADIATION / CHEMOTHERAPY N COPD Y Other # 2 N BLOOD DISEASES Y EAR OR HEARING PROBLEMS Y MUMPS N SHINGLES N DEPRESSION (INCLUDING POST ) N BOWEL PROBLEMS N STROKE/TIA N ULCERS N BENIGN PROSTATIC HYPERPLASIA N MEASLES N HYPOTENSION N MYOCARDIAL INFARCTION N OBESITY N GERD/NAUSEA N ANEURYSM N URINARY/BLADDER/KIDNEY PROBLEMS Y CORONARY ARTERY DISEASE (CAD) N ADDICTION CONCERNS N Impotence N ENDOMETRIOSIS N USE OF BLOOD THINNERS Y SKIN PROBLEMS N GASTROINTESTINAL DISORDER N PERIPHERAL VASCULAR DISEASE Y MUSCLE,JOINT OR BONE PROBLEMS N GASTROINTESTINAL BLEEDING N BLOOD CLOTS N ASTHMA N CATARACTS N ERECTILE DYSFUNCTION Y VARICOSITIES N GI PROBLEMS N Low Testosterone N INFERTILITY N AIDS/HIV N CHEMOTHERAPY / RADIATION N LIVER DISEASE N MALE HYPOGONADISM N HYPERTENSION Y Deficiency Y TOURETTE'S N ANXIETY DISORDER Y BLOOD TRANSFUSION N ANEMIA/BLOOD DISORDER N CHRONIC EAR INFECTIONS N BRONCHITIS N TUBERCULOSIS N GLAUCOMA N FOOT PROBLEM N DIVERTICULITIS Y SLEEP APNEA N CHICKENPOX N INFECTIOUS DISEASE N PROSTATE N HEART ARRHYTHMIA N INSOMNIA N HIGH CHOLESTEROL / HYPERLIPIDEMIA Y HYPERTHYROIDISM N EYE PROBLEMS N EDEMA N CHRONIC PAIN SYNDROME N HYPOTHYROIDISM N CONSTIPATION N CAROTID BLOCKAGE N BACK / NECK PROBLEMS N ATHEROSCLEROSIS N BREAST PROBLEMS N DIALYSIS N ECZEMA N OSTEOPOROSIS N ARTHRITIS Y APPENDICITIS N DIABETES, TYPE Y BAD TEETH N ENT N HEARTBURN / REFLUX N AUTISM SPECTRUM DISORDER (ASD) N HEPATITIS / LIVER DISEASE N GOUT Y SLEEP DISORDER N ALZHEIMER'S DISEASE N Brain Problems N HERPES N DEMENTIA N SEIZURES/EPILEPSY N HEADACHES/MIGRAINES N VASCULAR DISEASE Y PACEMAKER N Blood Disorder N DIZZINESS N KIDNEY DISEASE N HEART DISEASE/HEART PROBLEMS N MULTIPLE SCLEROSIS N CARDIAC ARRHYTHMIA N CANCER: SPECIFY N Gall Stones N ATRIAL FIBRILLATION N PULMONARY EMBOLISM N AUTOIMMUNE DISEASE N Immunizations Vaccine Type Date Status Note Provider Nam e and Address Organization Details Recorded Time Influenza, MDCK, quadrivalent, PF 8 completed Laura ohara [facility] 07/05/2023 18:45:16 Influenza, high-dose, quadrivalent, PF 1 completed Laura ohara [employer] [facility] 07/05/2023 18:45:17 COVID-19, mRNA, LNP-S, PF, 100 mcg/0.5mL dose or 50 mcg/0.25mL dose 1 completed Laura Jansen [email or web address] 07/05/2023 18:45:17 COVID-19, mRNA, LNP-S, PF, 100 mcg/0.5mL dose or 50 mcg/0.25mL dose 1 completed Laura Jansen [employer] [facility] [employer] 07/05/2023 18:45:17 COVID-19, mRNA, LNP-S, PF, 30 mcg/0.3 mL dose 1 completed Laura Jansen [employer] [facility] 07/05/2023 18:45:17 Influenza, high-dose, trivalent, PF 0 completed Not Available [facility] 06/24/2022 05:06:40 Influenza, split virus, quadrivalent, preservative 9 completed Not Available [facility] 06/24/2022 05:06:40 influenza, unspecified formulation 8 completed Not Available [facility] 06/24/2022 05:06:40 Influenza, high-dose, quadrivalent, PF 2 completed Not Available [facility] 06/24/2022 05:06:40 pneumococcal polysaccharide PPV23 0 completed Not Available [facility] 06/24/2022 05:06:41 Pneumococcal conjugate PCV 13 9 completed Laura Jansen [employer] MD [employer] [facility] 07/06/2023 10:27:08 Influenza, split virus, quadrivalent, PF 8 completed Not Available [facility] 06/24/2022 05:06:41 Tdap 8 completed Not Available [facility] 06/24/2022 05:06:41 Influenza, high-dose, trivalent, PF 4 completed VICENTE Montanez MD [employer] [facility] 02/08/2024 12:43:07 Past Encounters Encounter ID Performer Location Encounter Start Date Encounter Closed Date Diagnosis/Indication Diagnosis SNOMED-CT Code Diagnosis ICD10 Code Diagnosis Note [id number] [facility] [address] [place], [place] [address]., [address] [address] 09/12/2020 00:00:00 09/12/2020 14:18:27 [id number] [facility] Bernie Cornelius [address] [place] [address] 12/12/2020 00:00:00 12/13/2020 08:06:32 [id number] _ATHENA_M IGRATION_ DEFAULT_1 _1 , 12/16/2020 00:00:00 12/16/2020 11:00:57 [id number] [facility] [address] [address] 01/14/2021 00:00:00 01/20/2021 10:41:03 [id number] [facility] [address] [address] 07/15/2021 00:00:00 07/15/2021 14:06:17 [id number] [facility] [address], [address] [address] 12/23/2021 00:00:00 12/23/2021 10:03:50 [id number] [facility] [address] [address] 01/22/2022 00:00:00 01/22/2022 13:30:27 [id number] [facility] [address] [address] 03/10/2022 00:00:00 03/10/2022 09:53:32 [id number] Elvis hensley MD [facility] [address] [address] 07/07/2022 09:38:59 07/07/2022 10:22:47 Screening - NAD [id number] Z13.9 C-scope: 2010, Dr. Hope, next in 10 years, referral provided 09/12/2020 , 03/10/2022 , 07/07/2022 UTD flu shotUTD on tdap 03/10/18UT D PCV #13 04/13/19, #23 04/11/2020 get shingles vaccine doneUTD on COVID 19 vaccine RTC in 4 monthsdo labsER if any symptoms worsen,he did verbalize his understand ing of the above Hyperlipidemia 01879262 E78.5 Not on atorvastat in 40mg dailyOn pravastati n [facility] labs Proteinuria 37688575 R80 .[address] David ALFARO, but is now seeing Dr Barker or Dr Mukherjee Smoker [id number] F17.200 LDCT 10/25/2019 : Next in one yearLDCT 11/14/2020 : Next in one yearLDCT 12/30/2021 : Next in one year [place] AAA 08/17/2019 : Neg Advised to quit smoking ! Type 2 angelina betes mellitus without complication 102902545 E11.9 On metformin 500mg bidDoes [facility] labs Peripheral vascular disease 578935779 I73.[address] Jimenez [facility] last OV 10/17/20[address] D75.1 Dr Snell 11/06/2021 , next in 6 months Anxiety 04810975 F41.9 On alprazolam 0.25mg bid but takes it daily advised to take PRN only,Offer ed other meds and psychiatry referral he refused. Essential hypertension 25376508 I10 On losartanOn plavix filled by Dr Jimenez [facility] Has seen Dr David ALFARO,Has even seen HV Dr Jiemnez Does well Primary er ectile dysfunction 073386374 N52.9 On cialis as neededDoes well Understand s the side effects Thrombocytosis 5841007 D 75.839 Get labs If PLT is >[address] Snell and he has declined any referrals today Sensorineu ral hearing loss of bilateral ears 633275501 H90.3 S/p ENT visit on 06/07/[address] temporal bone and TM surgery but patient not interested Obstructiv e sleep apnea syndrome 58136146 G47.33 Sleep study 10/29/2021 : [facility] Dr Jimenez, mild OSADr Raza 01/22/2022 Screening for malignant neoplasm of colon 130431357 Z12.11 Right inguinal hernia 23 1025359 K40.90 [id number] Jesus aparicio MD [facility] General Surgery [address] [place] [address] 07/28/2022 10:17:43 07/28/2022 12:03:48 Ventral incisional hernia 179621686 K43.2 Right inguinal hernia 23 8851355 K40.90 [id number] Jesus aparicio MD [facility] General Surgery [address] [place] [address] 09/15/2022 11:28:11 09/15/2022 12:58:48 [id number] Elvis hensley MD [facility] Internal Med [facility] [address] [address] 01/12/2023 09:24:19 01/12/2023 09:58:40 Screening - NAD 046896510 Z13.9 C-scope: 2010, Dr. Hope, next in 10 years, referral provided 09/12/2020 , 03/10/2022 , 07/07/2022 , 01/12/2023 , understand s the risks for delaying testing for CRC! Get yearly flu shotUTD on tdap 03/10/18UT D PCV #13 04/13/19, #23 04/11/2020 get shingles vaccine doneUTD on COVID 19 vaccine, get the latest COVID 19 vaccineGet RSV vaccine RTC in 6 monthsdo labsER if any symptoms worsen,he did verbalize his understand ing of the above Hyperlipidemia 54465990 E78.5 Not on atorvastat in 40mg dailyOn pravastati n nowGet labs Proteinuria 96006498 R80 [address] Hernandez IJ, but is now seeing Dr Barker or Dr Mukherjee Smoker 86497529 F17.200 LDCT 10/25/2019 : Next in one yearLDCT 11/14/2020 : Next in one yearLDCT 12/30/2021 : Next in one year [place] AAA 08/17/2019 : Neg Advised to quit smoking ! 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 Essential hypertension 41362526 I10 Repeat BP: 01/12/2023 On losartanOn plavix filled by Dr Jimenez [facility] Has seen Dr David ALFARO,Has even seen [facility] Dr Jimenez Does well Primary er ectile dysfunction 522050690 N52.9 On cialis as neededDoes well Understand s the side effects Thrombocytosis 9474455 D 75.839 Get labs If PLT is >[address] Snell and he has declined any referrals today Sensorineu ral hearing loss of bilateral ears 993949720 H90.3 S/p ENT visit on 06/07/[address] temporal bone and TM surgery but patient not interested Obstructiv e sleep apnea syndrome 14460251 G47.33 Sleep study 10/29/2021 : [facility] Dr Jimenez, mild OSADr Raza 01/22/2022 Screening for malignant neoplasm of colon 904300665 Z12.11 Right inguinal hernia 23 2277895 K40.90 S/p surgery Dr Emery, post op 09/15/2022 , f/u PRN [id number] Elvis hensley MD [facility] [place] [address], [address] [place] [address] 07/06/2023 09:57:26 07/06/2023 10:52:04 Screening - NAD 543619536 Z13.9 C-scope: 2010, Dr. Hope, next in 10 years, referral provided 09/12/2020 , 03/10/2022 , 07/07/2022 , 01/12/2023 , understand s the risks for delaying testing for CRC! Get yearly flu shotUTD on tdap 03/10/18UT D PCV #13 04/13/19, #23 04/11/2020 get shingles vaccine doneUTD on COVID 19 vaccine, get the latest COVID 19 vaccineGet RSV vaccine RTC in 6 monthsdo labsER if any symptoms worsen,he did verbalize his understand ing of the above Hyperlipidemia 82450569 E78.5 Not on atorvastat in 40mg dailyOn pravastati n 20mg daily, today 07/06/2023 states that he has been non compliant with his diet as well as taking his pravastati n, will now take his meds on time and dailyMore diet and exercise, may need vascepaGet labs Proteinuria 29496781 R80 .[address] David ALFARO, but is now seeing Dr Barker or Dr Mukherjee Smoker [id number] F17.200 LDCT 10/25/2019 : Next in one yearLDCT 11/14/2020 : Next in one yearLDCT 12/30/2021 : Next in one yearLDCT 01/18/2023 : Next in one year [place] AAA 08/17/2019 : Neg Advised to quit smoking ! Type 2 angelina betes mellitus without complication 692542761 E11.9 On metformin 500mg bidDoes wellGet labs Peripheral vascular disease 867489622 I73.[address] Jimenez [facility] last OV 10/17/[address] Snell 05/14/2022 Anxiety 69104141 F41.9 On alprazolam 0.25mg bid but takes it daily, Advised to take PRN only,Offer ed other meds and psychiatry referral he refused. Essential hypertension 84617277 I10 Repeat BP: 01/12/2023 On losartanOn plavix filled by Dr Jimenez [facility] Has seen Dr David ALFARO,Has even seen [facility] Dr Jimenez Does well Primary er ectile dysfunction 727891020 N52.9 On cialis as neededDoes well Understand s the side effects Thrombocytosis 9331388 D 75.839 Get labs If PLT is >[address] Snell and he has declined any referrals today 07/06/2023 Sensorineu ral hearing loss of bilateral ears 687163891 H90.3 S/p ENT visit on 06/07/[address] temporal bone and TM surgery but patient not interested Obstructiv e sleep apnea syndrome 58204718 G47.33 Sleep study 10/29/2021 : [facility] Dr Jimenez, mild OSADr Raza 01/22/2022 Screening for malignant neoplasm of colon 154089194 Z12.11 Right inguinal hernia 23 4923732 K40.90 S/p surgery Dr Emery, post op 09/15/2022 , f/u PRN Adult heal th examination 995063210 Z00.00 Screening for disorder 533585993 Z13.9 [id number] Elvis hensley MD [facility] [address] [facility], [address] [place] [address] 10/12/2023 11:00:55 10/12/2023 12:01:46 Screening - NAD 704571383 Z13.9 C-scope: 2010, Dr. Hope, next in 10 years, referral provided 09/12/2020 , 03/10/2022 , 07/07/2022 , 01/12/2023 , understand s the risks for delaying testing for CRC! Get yearly flu shotUTD on tdap 03/10/18UT D PCV #13 04/13/19, #23 04/11/2020 get shingles vaccine doneUTD on COVID 19 vaccine, get the latest COVID 19 vaccineGet RSV vaccine RTC in 6 monthsdo labsER if any symptoms worsen,he did verbalize his understand ing of the above Hyperlipidemia 96460786 E78.5 Not on atorvastat in 40mg dailyOn pravastati n 20mg daily, today 07/06/2023 states that he has been non compliant with his diet as well as taking his pravastati n, will now take his meds on time and dailyMore diet and exercise, may need vascepaGet labs Proteinuria 85258331 R80 .[address] Hernandez IJ, but is now seeing Dr Barker or Dr Mukherjee Smoker 62562803 F17.200 LDCT 10/25/2019 : Next in one yearLDCT 11/14/2020 : Next in one yearLDCT 12/30/2021 : Next in one yearLDCT 01/18/2023 : Next in one year [place] AAA 08/17/2019 : Neg Advised to quit smoking ! 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 Essential hypertension 51449339 I10 Repeat BP: 01/12/2023 On losartanOn plavix filled by Dr Jimenez [facility] Has seen Dr Hernandez IJ,Has even seen [facility] Dr Jimenez Does well ECHO 08/12/2023 US arterial duplex: 08/12/2023 US Aorta: 08/12/2023 Stress test 08/19/2023 Dr Jimenez: 09/15/2023 : Get CT angio Primary er ectile dysfunction 252528339 N52.9 On cialis as neededDoes well Understand s the side effects Thrombocytosis 8447414 D 75.839 Get labs If PLT is >[address] Snell and he has declined any referrals today 07/06/2023 Sensorineu ral hearing loss of bilateral ears 681305539 H90.3 S/p ENT visit on 06/07/[address] temporal bone and TM surgery but patient not interested Obstructiv e sleep apnea syndrome 83407042 G47.33 Sleep study 10/29/2021 : [facility] Dr Jimenez, mild OSADr Raza 01/22/2022 Screening for malignant neoplasm of colon 579219818 Z12.11 Right inguinal hernia 23 5089720 K40.90 S/p surgery Dr Emery, post op 09/15/2022 , f/u PRN Adult heal th examination 221062288 Z00.00 Screening for disorder 167305888 Z13.9 Nicotine dependence 5629 4008 F17.946 [id number] DOMINIK Sanchez [facility] [place] [address] [place] [address] 11/04/2023 08:42:57 11/04/2023 10:22:11 Pain of right knee joint 3433090416 48823 M25.561 Osteoarthr itis of right knee joint 7139917654 17272 M17.11 [id number] Elvis hensley MD [facility] [address] [place] [address] 02/08/2024 09:44:33 02/08/2024 10:20:08 Screening - NAD 835337309 Z13.9 C-scope: 2010, Dr. Hope, next in 10 years, referral provided 09/12/2020 , 03/10/2022 , 07/07/2022 , 01/12/2023 , understand s the risks for delaying testing for CRC! Get yearly flu shotUTD on tdap 03/10/18UT D PCV #13 04/13/19, #23 04/11/2020 get shingles vaccine doneUTD on COVID 19 vaccine, get the latest COVID 19 vaccineGet RSV vaccine RTC in 6 monthsdo labsER if any symptoms worsen,he did verbalize his understand ing of the above Hyperlipidemia 48585275 E78.5 Not on atorvastat in 40mg dailyOn pravastati n 20mg dailyMore diet and exercise, may need vascepaGet labs Proteinuria 26664402 R80 [address] Hernandez IJ, but is now seeing Dr Barker or Dr Mukherjee Smoker 15752499 F17.200 LDCT 10/25/2019 : Next in one yearLDCT 11/14/2020 : Next in one yearLDCT 12/30/2021 : Next in one yearLDCT 01/18/2023 : Next in one yearLDCT 02/03/2024 : CAD [place] AAA 08/17/2019 : Neg Advised to quit smoking ! 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 Essential hypertension 52157842 I10 Repeat BP: 01/12/2023 On losartanOn plavix filled by Dr Jimenez [facility] Has seen Dr David ALFARO,Has even seen [facility] Dr Jimenez Does well ECHO 08/12/2023 US arterial duplex: 08/12/2023 US Aorta: 08/12/2023 Stress test 08/19/2023 Dr Jimenez: 09/15/2023 : Get CT angioDid call Dr Jimenez and he will be seen tomorrow 02/09/2024 at 10.00am Primary er ectile dysfunction 294842904 N52.9 On cialis as neededDoes well Understand s the side effects Thrombocytosis 0482280 D 75.839 Get labsHe does continue to smoke, advised to quit!If PLT is >[address] Snell and he has declined any referrals today 07/06/2023 , 02/08/2024 Sensorineu ral hearing loss of bilateral ears 357888644 H90.3 S/p ENT visit on 06/07/[address] temporal bone and TM surgery but patient not interested Obstructiv e sleep apnea syndrome 03182778 G47.33 Sleep study 10/29/2021 : [facility] Dr Jimenez, mild OSADr Raza 01/22/2022 Screening for malignant neoplasm of colon 927745921 Z12.11 Right inguinal hernia 23 1828329 K40.90 S/p surgery Dr Emery, post op 09/15/2022 , f/u PRN Health Concerns Section Related Observation LastModified by Organization Detai ls LastModified Time None Recorded Concern Status LastModified by Organization Details LastModified Time None Recorded Advance Directives Directive N: Payers Encounter Date Sequence Insurance Name Policy Number Policy Bruno Covered Member ID Bruno Member ID Guarantor Name 01/12/2023 1 [facility] (MEDICARE REPLACEMENT/A DVANTAGE - PPO) [id number] Duc Holcomb [id number] Duc Holcomb 07/06/2023 1 [facility] (MEDICARE REPLACEMENT/A DVANTAGE - PPO) [id number] Duc Holcomb [id number] Duc Holcomb 10/12/2023 1 [facility] (MEDICARE REPLACEMENT/A DVANTAGE - PPO) [id number] Duc Holcomb [id number] Duc Holcomb 11/04/2023 1 [facility] (MEDICARE REPLACEMENT/A DVANTAGE - PPO) [id number] Duc Holcomb [id number] Duc Holcomb 02/08/2024 1 [facility] (MEDICARE REPLACEMENT/A DVANTAGE - PPO) [id number] Duc Holcomb [id number] Duc Holcomb Notes Date Note Type Note Provider Name and Address Organization Details Recorded Time 01/12/2023 text/html Last OV 10/20/16 Hx of:AnxietyEDReviewed his past social, surgical and family historyHe is here to discuss his labs, doing well otherwise.He does have an umbilical hernia and wants to discuss this. Had a umbilical hernia and it was repaired many 'years ago'OV 01/19/17:Here as he needs some refills alsoOV 06/10/17:Here with question regarding his metformin and chol medicationsHe states that he has had OM and is on antibioticsOV 07/08/17:Here for his visit to discuss his toe infectionHe has seen Dr Taveras and is doing well nowHe also has a 'boil' on the anal verge and wants to know if he needs an antibiotic for thisOV 08/12/17:Here for his routine aptHe states that he is doing well at this timeHe did do the labs in 08/09/17OV 12/09/17:Here for his routine aptHe did do the labs and is here to review theseOV 03/10/18:Here for his routine aptHe states that he is doing well at this timeHe did do the labsOV 06/09/18:Here for his routine aptHe feels well, is now seeing Dr Drake again as the L big toe wound has 'opened up'He did do the labs on 06/06/18OV 10/06/18:Here for his routine aptHe did do the labsHe also is not taking the losartan, he did stop this as it was giving him palpitations and now these are resolvedHe also did see Dr Jimenez 2 weeks ago and has had an ECHOHe feels 'great' no complaints todayOV 04/13/19:Is here for his routine aptHe did do the labsHe is feeling wellHis L big toe wound is healedOV 08/10/2019:Here for televisitHe is agreeable to do the televisitHe states that he is doing very well, the wound has healed upHe states that his diet is slipped up as he eats 'eggs everyday'His ROS is negativeOV 12/13/2019:Here for his routine aptHe is doing very wellHe did do the labsHe needs to see the eye and the foot MDOV 01/16/2020;Here for ACV:C/o L earache and R ear fullnessOngoing for a 'few weeks'No fevers or chills, no N/VNo dizzinessNo cough, no sputum, no d/c from the noseNo blood in sputumOV 04/11/2020:Here for his routine aptHe is doing wellHe did see Dr Hernandez and has done the labs thru his officeHe is also d/t get his PCV #23 and is here for his MWV but he does not want to do thisOV 09/12/2020:Here for his routine aptHe is doing very wellHe did do the labs OV 01/14/2021:Here for his routine aptHe would like to be seen every 6 months as he feels 'great'He is to see Dr Hernandez this Wednesday, some of the labs are done, but not the CBC or the CMP OV 07/15/2021:Here for his routine aptHe is here for his MWV alsoHe is doing wellHe did do the labs on 07/10/2021 OV 12/23/2021:Here for his f/u apt, he feels well, he did the labs yesterday on 12/22/2021, states that he has not done the LDCT as he has been very busyOV 03/10/2022:Here for his f/u apt, he did do the labs, states that he has been very busy at home as he now has his MANDY living with him, he is yet to do his c-scope and is also been told to do a sleep study OV 07/07/2022:Here for his f/u apt, he is now to get his root canal done today, also wants a surgical referral as he feels that there is a R inguinal hernia and an umbilical hernia, does well otherwise OV 01/12/2023: Here for his f/u apt, he is doing well today, labs were done on 01/05/2023 Elvis Art MD [address], [address], [place], [address], [place] [facility] 01/12/2023 10:07:36 07/06/2023 text/html Last OV 10/20/16 Hx of:AnxietyEDReviewed his past social, surgical and family historyHe is here to discuss his labs, doing well otherwise.He does have an umbilical hernia and wants to discuss this. Had a umbilical hernia and it was repaired many 'years ago'OV 01/19/17:Here as he needs some refills alsoOV 06/10/17:Here with question regarding his metformin and chol medicationsHe states that he has had OM and is on antibioticsOV 07/08/17:Here for his visit to discuss his toe infectionHe has seen Dr Taveras and is doing well nowHe also has a 'boil' on the anal verge and wants to know if he needs an antibiotic for thisOV 08/12/17:Here for his routine aptHe states that he is doing well at this timeHe did do the labs in 08/09/17OV 12/09/17:Here for his routine aptHe did do the labs and is here to review theseOV 03/10/18:Here for his routine aptHe states that he is doing well at this timeHe did do the labsOV 06/09/18:Here for his routine aptHe feels well, is now seeing Dr Drake again as the L big toe wound has 'opened up'He did do the labs on 06/06/18OV 10/06/18:Here for his routine aptHe did do the labsHe also is not taking the losartan, he did stop this as it was giving him palpitations and now these are resolvedHe also did see Dr Jimenez 2 weeks ago and has had an ECHOHe feels 'great' no complaints todayOV 04/13/19:Is here for his routine aptHe did do the labsHe is feeling wellHis L big toe wound is healedOV 08/10/2019:Here for televisitHe is agreeable to do the televisitHe states that he is doing very well, the wound has healed upHe states that his diet is slipped up as he eats 'eggs everyday'His ROS is negativeOV 12/13/2019:Here for his routine aptHe is doing very wellHe did do the labsHe needs to see the eye and the foot MDOV 01/16/2020;Here for ACV:C/o L earache and R ear fullnessOngoing for a 'few weeks'No fevers or chills, no N/VNo dizzinessNo cough, no sputum, no d/c from the noseNo blood in sputumOV 04/11/2020:Here for his routine aptHe is doing wellHe did see Dr Hernandez and has done the labs thru his officeHe is also d/t get his PCV #23 and is here for his MWV but he does not want to do thisOV 09/12/2020:Here for his routine aptHe is doing very wellHe did do the labs OV 01/14/2021:Here for his routine aptHe would like to be seen every 6 months as he feels 'great'He is to see Dr Hernandez this Wednesday, some of the labs are done, but not the CBC or the CMP OV 07/15/2021:Here for his routine aptHe is here for his MWV alsoHe is doing wellHe did do the labs on 07/10/2021 OV 12/23/2021:Here for his f/u apt, he feels well, he did the labs yesterday on 12/22/2021, states that he has not done the LDCT as he has been very busyOV 03/10/2022:Here for his f/u apt, he did do the labs, states that he has been very busy at home as he now has his MANDY living with him, he is yet to do his c-scope and is also been told to do a sleep study OV 07/07/2022:Here for his f/u apt, he is now to get his root canal done today, also wants a surgical referral as he feels that there is a R inguinal hernia and an umbilical hernia, does well otherwise OV 01/12/2023: Here for his f/u apt, he is doing well today, labs were done on 01/05/2023 OV 07/06/2023: Here for his f/u apt, he feels well today Elvis Art MD [address], [place], [address], [place] [facility] 07/07/2023 18:12:21 10/12/2023 text/html Last OV 10/20/16 Hx of:AnxietyEDReviewed his past social, surgical and family historyHe is here to discuss his labs, doing well otherwise.He does have an umbilical hernia and wants to discuss this. Had a umbilical hernia and it was repaired many 'years ago'OV 01/19/17:Here as he needs some refills alsoOV 06/10/17:Here with question regarding his metformin and chol medicationsHe states that he has had OM and is on antibioticsOV 07/08/17:Here for his visit to discuss his toe infectionHe has seen Dr Taveras and is doing well nowHe also has a 'boil' on the anal verge and wants to know if he needs an antibiotic for thisOV 08/12/17:Here for his routine aptHe states that he is doing well at this timeHe did do the labs in 08/09/17OV 12/09/17:Here for his routine aptHe did do the labs and is here to review theseOV 03/10/18:Here for his routine aptHe states that he is doing well at this timeHe did do the labsOV 06/09/18:Here for his routine aptHe feels well, is now seeing Dr Drake again as the L big toe wound has 'opened up'He did do the labs on 06/06/18OV 10/06/18:Here for his routine aptHe did do the labsHe also is not taking the losartan, he did stop this as it was giving him palpitations and now these are resolvedHe also did see Dr Jimenez 2 weeks ago and has had an ECHOHe feels 'great' no complaints todayOV 04/13/19:Is here for his routine aptHe did do the labsHe is feeling wellHis L big toe wound is healedOV 08/10/2019:Here for televisitHe is agreeable to do the televisitHe states that he is doing very well, the wound has healed upHe states that his diet is slipped up as he eats 'eggs everyday'His ROS is negativeOV 12/13/2019:Here for his routine aptHe is doing very wellHe did do the labsHe needs to see the eye and the foot MDOV 01/16/2020;Here for ACV:C/o L earache and R ear fullnessOngoing for a 'few weeks'No fevers or chills, no N/VNo dizzinessNo cough, no sputum, no d/c from the noseNo blood in sputumOV 04/11/2020:Here for his routine aptHe is doing wellHe did see Dr Hernandez and has done the labs thru his officeHe is also d/t get his PCV #23 and is here for his MWV but he does not want to do thisOV 09/12/2020:Here for his routine aptHe is doing very wellHe did do the labs OV 01/14/2021:Here for his routine aptHe would like to be seen every 6 months as he feels 'great'He is to see Dr Hernandez this Wednesday, some of the labs are done, but not the CBC or the CMP OV 07/15/2021:Here for his routine aptHe is here for his MWV alsoHe is doing wellHe did do the labs on 07/10/2021 OV 12/23/2021:Here for his f/u apt, he feels well, he did the labs yesterday on 12/22/2021, states that he has not done the LDCT as he has been very busyOV 03/10/2022:Here for his f/u apt, he did do the labs, states that he has been very busy at home as he now has his MANDY living with him, he is yet to do his c-scope and is also been told to do a sleep study OV 07/07/2022:Here for his f/u apt, he is now to get his root canal done today, also wants a surgical referral as he feels that there is a R inguinal hernia and an umbilical hernia, does well otherwise OV 01/12/2023: Here for his f/u apt, he is doing well today, labs were done on 01/05/2023 OV 07/06/2023: Here for his f/u apt, he feels well today OV 10/12/2023: Here for his routine apt, he states that he is doing very well, he did do a stress test and is now to get a CT angio done but this still pending [facility] also Elvis Art MD [address], [facility] [address], [place], [address], [facility] [employer] [facility] [employer] 10/31/2023 15:55:06 11/04/2023 text/html patient is a 68-year-old male who presents with a 2 week history of right knee pain. He was doing yd work using a clarke walking on uneven surfaces twisting and turning later when he was done he started to notice some right knee pain. He has had some pain on and off here and there over the years but typically gets better pretty quickly. His pain this time has persisted he was wondering why he denies any specific trauma or injury no swelling or effusion but the knee did feel stiff. He has some crepitation through the arc of motion that he reports is chronic in nature. He states he does take Tylenol extra-strength which seems to have been helping somewhat his pain has reduced over the course of the past few days to the point where it has about a 2 on a scale of 1-10 previously was much worse. He was using a crutch for a day or 2 but his pain is resolving. He still wanted to come in for his appointment today to make sure nothing else was going on. It was keeping him awake at night he is now sleeping and starting to do better. New past medical history sheet was reviewed and signed on the intake sheet of today's date drug allergies current medications family social history previous surgical history 10 point review of systems was reviewed and discussed in detail today with the patient. The patient is on blood thinners and can not take oral anti-inflammatory medication. DOMINIK Sanchez [address], [facility] [address], [place], [address], [facility] [employer] [facility] [employer] 11/04/2023 09:44:05 02/08/2024 text/html Last OV 10/20/16 Hx of:AnxietyEDReviewed his past social, surgical and family historyHe is here to discuss his labs, doing well otherwise.He does have an umbilical hernia and wants to discuss this. Had a umbilical hernia and it was repaired many 'years ago'OV 01/19/17:Here as he needs some refills alsoOV 06/10/17:Here with question regarding his metformin and chol medicationsHe states that he has had OM and is on antibioticsOV 07/08/17:Here for his visit to discuss his toe infectionHe has seen Dr Taveras and is doing well nowHe also has a 'boil' on the anal verge and wants to know if he needs an antibiotic for thisOV 08/12/17:Here for his routine aptHe states that he is doing well at this timeHe did do the labs in 08/09/17OV 12/09/17:Here for his routine aptHe did do the labs and is here to review theseOV 03/10/18:Here for his routine aptHe states that he is doing well at this timeHe did do the labsOV 06/09/18:Here for his routine aptHe feels well, is now seeing Dr Drake again as the L big toe wound has 'opened up'He did do the labs on 06/06/18OV 10/06/18:Here for his routine aptHe did do the labsHe also is not taking the losartan, he did stop this as it was giving him palpitations and now these are resolvedHe also did see Dr Jimenez 2 weeks ago and has had an ECHOHe feels 'great' no complaints todayOV 04/13/19:Is here for his routine aptHe did do the labsHe is feeling wellHis L big toe wound is healedOV 08/10/2019:Here for televisitHe is agreeable to do the televisitHe states that he is doing very well, the wound has healed upHe states that his diet is slipped up as he eats 'eggs everyday'His ROS is negativeOV 12/13/2019:Here for his routine aptHe is doing very wellHe did do the labsHe needs to see the eye and the foot MDOV 01/16/2020;Here for ACV:C/o L earache and R ear fullnessOngoing for a 'few weeks'No fevers or chills, no N/VNo dizzinessNo cough, no sputum, no d/c from the noseNo blood in sputumOV 04/11/2020:Here for his routine aptHe is doing wellHe did see Dr Hernandez and has done the labs thru his officeHe is also d/t get his PCV #23 and is here for his MWV but he does not want to do thisOV 09/12/2020:Here for his routine aptHe is doing very wellHe did do the labs OV 01/14/2021:Here for his routine aptHe would like to be seen every 6 months as he feels 'great'He is to see Dr Hernandez this Wednesday, some of the labs are done, but not the CBC or the CMP OV 07/15/2021:Here for his routine aptHe is here for his MWV alsoHe is doing wellHe did do the labs on 07/10/2021 OV 12/23/2021:Here for his f/u apt, he feels well, he did the labs yesterday on 12/22/2021, states that he has not done the LDCT as he has been very busyOV 03/10/2022:Here for his f/u apt, he did do the labs, states that he has been very busy at home as he now has his MANDY living with him, he is yet to do his c-scope and is also been told to do a sleep study OV 07/07/2022:Here for his f/u apt, he is now to get his root canal done today, also wants a surgical referral as he feels that there is a R inguinal hernia and an umbilical hernia, does well otherwise OV 01/12/2023: Here for his f/u apt, he is doing well today, labs were done on 01/05/2023 OV 07/06/2023: Here for his f/u apt, he feels well today OV 10/12/2023: Here for his routine apt, he states that he is doing very well, he did do a stress test and is now to get a CT angio done but this still pending [facility] also OV 02/08/2024: Here for his f/u apt, he feels well today, he did do the labs on 02/03/2024 Elvis Art MD [address], [address], [place], [address], [place] [facility] [employer] 02/18/2024 23:10:24
[2024-05-25 12:02] LABS: Anion Gap 11 mmol/L (4-12); Blood Urea Nitrogen 9 mg/dL (9-20); Calcium 9.2 mg/dL (8.4-10.2); Carbon Dioxide 26 mmol/L (22-30); Chloride 97 mmol/L (98-107); Estimated Glomerular Filt Rate > 60; Glucose 121 mg/dL (65-110); Potassium 4.8 mmol/L (3.4-5.0); Sodium 134 mmol/L (137-145)
== END 2024-05-25 09:12 | disposition home or self-care (01) ==
LOC: ANHLAB 09:15
PROVIDERS: PCP Internal Medicine; Visit Provider Internal Medicine Hematology & Oncology
DX: D47.3 Essential (hemorrhagic) thrombocythemia (principal)
CPT/HCPCS: 36415; 80048; 85025

== ENCOUNTER 2024-06-12 13:31 | Outpatient (CLI) | payer MEDICARE, SELFPAY ==
--- NOTE | ~2024-06-12 | MR_ITS ---
EXAMINATION: MR abdomen wo/w con DATE: 06/12/2024 15:59 INDICATION: Adrenal mass. TECHNIQUE: Magnetic resonance imaging (MRI) of the abdomen was performed without and with 20 mL Multi Tova intravenous contrast. COMPARISON: None. FINDINGS: There is diffuse hepatic steatosis. There are cysts in the liver measuring up to 4.9 cm. The gallblad zackary, spleen, pancreas, and right adrenal gland are normal. There is a 3.9 cm mass in left adrenal gla nd containing microscopic fat, consistent with an adenoma. There are cysts and hemorrhagic cysts in t he kidneys measuring up to 4.7 cm on the left. There are no dilated loops of bowel. There are no path ologically enlarged lymph nodes. There is no free intraperitoneal fluid. IMPRESSION: 1. 3.9 cm left adrenal adenoma. 2. Diffuse hepatic steatosis. Reviewed, dictated and finalized at location A. [facility]
--- OUTSIDE RECORDS SUMMARY | 2024-06-12 16:06 | XMS_ITS | Data Portability ---
Author Organization [facility], Main Office Address [address] [place] [address] Care Team Providers Care Photograph Inspector Name Role Phone ELVIS ART Primary Care Provider ELVIS ART Referring Provider MATTEO LUJAN Orthopedic Surgeon YOSEPH MUKHERJEE Dry Cell Battery Assembler BRY JIMENEZ Fire Protection Specialist Assessment Encounter Date Assessment Date Assessment LastModified [...] Modified Time Details Appointments Any 15 2024 10:15A Felicita gilliam MD Not available Not available Not available Lab lipid panel, serum 2023 024 [facility] (Lab), [address] [place], [address], 03/04/2024 11:37:15 CMP, serum or plasma [email or web address] (Lab), [address] [place], [address], 02/08/2024 10:17:39 CBC w/ auto diff 2023 024 [facility] (Lab), [address] [place], [address], 05/25/2024 13:38:58 TSH, serum or plasma [address] (Lab), [address] [place], [address], 02/08/2024 10:17:40 T4, free, serum [address] (Lab), [address] [place], [address], 02/08/2024 10:17:40 glycohemo globin, total, blood [address] (Lab), [address] [place], [address], 02/08/2024 10:17:40 microalbu min, urine [address] (Lab), [address] [place], [address], 02/08/2024 10:17:40 lipid panel, serum 2023 024 [facility] (Lab), [address] [place], [address], 02/03/2024 12:42:08 CMP, serum or plasma 2023 024 [facility] (Lab), [address] [place], [address], 02/03/2024 12:42:29 CBC w/ auto diff 2023 024 [facility] (Lab), [address] [place], [address], 02/03/2024 12:01:39 TSH, serum or plasma 2023 024 [facility] (Lab), [address] [place], [address], 02/03/2024 13:15:30 T4, free, serum 2023 024 [facility] (Lab), [address] [place], [address], 02/03/2024 12:59:38 glycohemo globin, total, blood 2023 024 [facility] (Lab), [address] [place], [address], 02/03/2024 13:07:09 microalbu min, urine 2023 024 [facility] (Lab), [address] [place], [address], 02/03/2024 12:41:18 lipid panel, serum 2023 024 [facility] (Lab), [address] [place], [address], 10/07/2023 12:50:26 CMP, serum or plasma 2023 024 [facility] (Lab), [address] [place], [address], 10/07/2023 12:50:38 CBC w/ auto diff 2023 024 [facility] (Lab), [address] [place], [address], 10/07/2023 12:38:42 TSH, serum or plasma 2023 024 [facility] (Lab), [address] [place], [address], 10/07/2023 13:44:08 T4, free, serum 2023 024 [facility] (Lab), [address] [place], [address], 10/07/2023 13:11:37 glycohemo globin, total, blood 2023 024 [facility] (Lab), [address] [place], [address], 10/07/2023 13:53:04 microalbu min, urine 2023 024 [facility] (Lab), [address] [place], [address], 10/07/2023 15:33:48 lipid panel, serum 2022 023 [facility] (Lab), [address] [place], [address], 07/01/2023 14:45:56 CMP, serum or plasma 2022 023 [facility] (Lab), [address] [place], [address], 07/01/2023 14:46:12 CBC w/ auto diff 2022 023 [facility] (Lab), [address] [place], [address], 07/01/2023 13:24:10 TSH, serum or plasma 2022 023 [facility] (Lab), [address] [place], [address], 07/01/2023 15:59:17 T4, free, serum 2022 023 [facility] (Lab), [address] [place], [address], 07/01/2023 15:49:02 glycohemo globin, total, blood 2022 023 [facility] (Lab), [address] [place], [address], 07/01/2023 14:59:19 microalbu min, urine 2022 023 [facility] (Lab), [address] [place], [address], 07/01/2023 14:23:31 Referral vascular surgeon referral 2023 024 [email or web address] [place], [address], [address], [place], [address], 02/08/2024 10:29:20 nephrolog ist referral - Please call patient to schedule. 2023 024 [email or web address] Yoseph Mukherjee MD, [address] [facility] [address], [place], [address], 04/12/2024 15:36:15 pulmonolo gist referral - Please call patient to schedule. 2023 024 bud Raza MD, [address] [place], [address], 05/18/2024 08:32:57 cardiolog ist referral 2023 024 [email or web address] [place], [address], [place], [address], 02/08/2024 10:29:21 podiatris t referral - Please call patient to schedule. 2023 024 LEEANN Corbett DPM, [address] [facility], [address], [place], [address], 06/11/2024 04:03:16 hematolog ist referral 2023 024 Tomer Snell, [address], [place], [address], 02/08/2024 10:26:37 vascular surgeon referral 2023 024 [email or web address] [place], [address], [address], [place], [address], 12/15/2023 08:50:45 nephrolog ist referral 2023 024 Yoseph Mukherjee MD, [address] [facility] [address], [address], [place], [address], 04/12/2024 15:36:12 pulmonolo gist referral 2023 024 [email or web address] Richard Raza MD, [address] [place], [address], 04/12/2024 15:35:54 hematolog ist referral 2023 024 [email or web address] Tomer Snell, [address], [place], [address], 12/15/2023 08:50:56 cardiolog ist referral 2023 024 [email or web address] [place], [address], [address], [place], [address], 04/12/2024 15:36:13 podiatris t referral 2023 024 [email or web address] Milton Corbett DPM, [address] [facility], [address], [place], [address], 04/12/2024 15:35:54 vascular surgeon referral 2023 024 [email or web address] [place], [address], [address], [place], [address], 08/03/2023 09:16:08 nephrolog ist referral 2023 024 [email or web address] Yoseph Mukherjee MD, [address], [address], [place], [address], 01/31/2024 10:29:55 pulmonolo gist referral 2023 024 Richard Raza MD, [address] [facility], [place], [address], 01/31/2024 10:29:54 hematolog ist referral 2023 024 [email or web address] Tomer Snell, [address], [place], [address], 08/03/2023 09:15:42 cardiolog ist referral 2023 024 [email or web address] [place], [address], [address], [place], [address], 01/03/2024 14:21:52 podiatris t referral 2023 024 [email or web address] Milton Corbett DPM, [address] [facility], [address], [place], [address], 01/03/2024 14:21:38 vascular surgeon referral 2022 023 [email or web address] [place], [address], [address], [place], [address], 07/13/2023 08:40:53 nephrolog ist referral 2022 023 [email or web address] Yoseph Mukherjee MD, [address] [facility] [address], [address], [place], [address], 07/13/2023 08:40:54 pulmonolo gist referral 2022 023 [email or web address] Richard Raza MD, [address] [place], [address], 06/15/2023 16:05:40 cardiolog ist referral 2022 023 [email or web address] [place], [address] [facility], [address], [place], [address], 07/12/2023 08:39:45 podiatris t referral 2022 023 [email or web address] Milton Corbett DPM, [address] [facility], [address], [place], [address], 07/12/2023 08:39:44 hematolog ist referral 2022 023 [email or web address] Tomer Snell, [address], [place], [address], 06/15/2023 16:06:04 Procedures colonosco py screening (PROC) - Please call patient to schedule. 2023 024 LEEANN Hope MD, [address] [facility] [address], [address], [place], [address], 06/11/2024 04:03:16 colonosco py screening (PROC) 2023 024 Pal Kaur MD, [address] [facility], [address], [place], [address], 04/12/2024 13:33:05 colonosco py screening (PROC) 2023 024 bud Kaur MD, [address], [address], [place], [address], 01/03/2024 14:18:55 colonosco py screening (PROC) 2022 023 bud Kaur MD, [address] [facility], [address], [place], [address], 07/12/2023 08:41:02 Surgeries None recorded. Imaging XR, knee 2023 024 [email or web address] [facility], [address], [place], [address], 11/04/2023 11:13:53 LDCT, chest, for lung cancer screening - No auth required 2023 024 [email or web address] [facility] (Radiology), [address] [place] [address], [address], 03/01/2024 14:10:17 LDCT, chest, for lung cancer screening 2023 024 [email or web address] [facility] (Radiology), [address] [place] [address], [address], 01/10/2024 09:31:17 LDCT, chest, for lung cancer screening 20[facility] [address] [place], [address], 01/18/2023 14:11:47 Medication Orders alprazola m 0.25 mg tablet 2022 023 [email or web address] [id number], [address] [facility] [place], [place], [id number], 01/12/2023 09:53:41 Patient TargetsNo targets recorded. Patient Instructions Encounter Date Encounter Id Patient Instructions Last Modified By Organization Details Last Modified Time 01/12/2023 [id number] diabetic eye exam* [email or web address] Not avail able 07/12/2023 08:41:54 07/06/2023 [id number] dementia rating scale-2* [email or web address] Not available 07/08/2023 09:42:27 multi-dimensiona l health assessment questionnaire* [email or web address] Not available 07/08/2023 09:42:54 care plan* [email or web address] Not available 09:40:54 advance care planning: care instructions [email or web address] Not available 07/06/2023 10:45:09 advance directiv es: care instructions [email or web address] 2 Not available 07/06/2023 10:45:09 [place] Advance Directives [email or web address] Not available 07/06/2023 10:45:10 diabetic eye exam* [email or web address] Not availa ble 01/03/2024 14:21:23 Personalized [facility] Plan and Screening Recommendations Advance Directives - Do you have one? No Advance Directives - Do we have your advance directive on file in your health record? No, please bring in a copy at your earliest convenience Primary Prevention/Interven tion (prevents or decreases the chance of common diseases from occurring) Smoking Risk: Smoker Refer to attached smoking cessation handouts Refer to attached handouts and prescription will be sent to pharmacy Continue to consider stopping smoking and call if we can assist you Alcohol Misuse Screening: Negative Weight: Appropriate Overwei ght Physical activity: Need more exercise/physical activity Nutrition: Good Average Fall Risk (screened today): Low Vaccines Pneumococcal: Ordered Recommended today Recommended today, but you have declined No further needed Influenza: Ordered Recommended today Recommended today, but you have declined Chronic Disease Risks Stroke: I have no recommendations Act gallito diagnosis, Continue current treatment plan Heart Attack: High Risk I have no recommendations Act gallito diagnosis, Continue current treatment plan Clogging of the Arteries: Low risk Intermediate Risk I have no recommendations Act gallito diagnosis, Continue current treatment plan Diabetes: High Risk Active diagnosis, Continue current treatment plan Secondary Prevention/Interven tion (detects treatable diseases before they may cause symptoms, disability, or ) Prostate Cancer Screening: Colon Cancer Screening: Colonoscopy Date Screening Last Performed: [id number] Eye Disease Screening: Ordered Recommended today Dementia Risk: Low Depression Screening: Negative Active diagnosis, Continue current treatment plan [email or web address] Not available 07/06/2023 10:46:30 10/12/2023 [id number] dementia rating scale-2* [email or web address] Not available 10/12/2023 12:19:52 alcohol misuse* [email or web address] Not available 10/12/2023 12:20:07 depression screening* [email or web address] Not available 10/12/2023 12:20:33 Timed Up and Go test (TUG)* [email or web address] Not available 10/12/2023 12:20:47 multi-dimensiona l health assessment questionnaire* [email or web address] 2 Not available 10/31/2023 15:53:24 advance care planning: care instructions karel Hannah Not available 10/31/2023 15:53:24 advance directiv es: care instructions karel 2 Not available 10/31/2023 15:53:24 [place] Advance Directives karel 2 Not available 10/31/2023 15:53:24 Personalized a lt Plan and Screening Recommendations Advance Directives - Do you have one? No You have indicated that you are capable of preparing your advance care directive Advance Directives - Do we have your advance directive on file in your health record? Primary Prevention/Interven tion (prevents or decreases the chance of common diseases from occurring) Smoking Risk: Smoker Refer to attached smoking cessation handouts Alcohol Misuse Screening: Negative Weight: Appropriate Overwei ght continue your current weight loss efforts try to lose 5% of your body weight try to lose 10% of your body weight Physical activity: Need more exercise/physical activity minimum of 10-20 minutes of activity that [...] you have declined No further needed Influenza: Your next one in the fall of this year Chronic Disease Risks Stroke: Low Risk Intermediate Risk Heart Attack: Low risk Intermediate Risk Clogging of the Arteries: High risk Diabetes: High Risk Active diagnosis, Continue current treatment plan Secondary Prevention/Interven tion (detects treatable diseases before they may cause symptoms, disability, or ) Prostate Cancer Screening: Colon Cancer Screening: Colonoscopy Date Screening Last Performed: 2010 Eye Disease Screening: Ordered Recommended today Dementia Risk: Low Intermediate I have no recommendations Depression Screening: Negative Positive Active diagnosis, Continue current treatment plan Not available 10/12/2023 12:23:06 Reason for Referral Aircraft Metalsmith Referral for O bstructive sleep apnea syndrome Referring Physician: Elvis Art, Internal Medicine, Encounter Date: 01/12/2023 Referring Physician: Elvis Art Internal Medicine, Encounter Date: 01/12/2023 Gang Sawyer Referral for Type 2 diabetes mellitus without complication Referring Physician: Shyam Keenan Medicine, Encounter Date: 01/12/2023 Vascular Surgeon Referral fo r Peripheral vascular disease Referring Physician: Shyam Keenan, Encounter Date: 01/12/2023 Dry Cell Battery Assembler Referral for Pr oteinuria Referring Physician: Shyam Keenan Medicine, Encounter Date: 01/12/2023 Fire Protection Specialist Referral for Es sential hypertension Referring Physician: Shyam Keenan, Encounter Date: 01/12/2023 Aircraft Metalsmith Referral for O bstructive sleep apnea syndrome Referring Physician: Shyam Keenan, Encounter Date: 07/06/2023 Referring Physician: Shyam Keenan, Encounter Date: 07/06/2023 Gang Sawyer Referral for Type 2 diabetes mellitus without complication Referring Physician: Shyam Keenan, Encounter Date: 07/06/2023 Vascular Surgeon Referral fo r Peripheral vascular disease Referring Physician: Shyam Keenan, Encounter Date: 07/06/2023 Dry Cell Battery Assembler Referral for Pr oteinuria Referring Physician: Shyam Keenan, Encounter Date: 07/06/2023 Fire Protection Specialist Referral for Es sential hypertension Referring Physician: Shyam Keenan, Encounter Date: 07/06/2023 Aircraft Metalsmith Referral for O bstructive sleep apnea syndrome Referring Physician: Shyam Keenan, Encounter Date: 10/12/2023 Referring Physician: Shyam Keenan, Encounter Date: 10/12/2023 Gang Sawyer Referral for Type 2 diabetes mellitus without complication Referring Physician: Elvis Art Internal Medicine, Encounter Date: 10/12/2023 Vascular Surgeon Referral fo r Peripheral vascular disease Referring Physician: Elvis Art Internal Medicine, Encounter Date: 10/12/2023 Dry Cell Battery Assembler Referral for Pr oteinuria Referring Physician: Elvis Atr Internal Medicine, Encounter Date: 10/12/2023 Fire Protection Specialist Referral for Es sential hypertension Referring Physician: Elvis Art Internal Medicine, Encounter Date: 10/12/2023 Aircraft Metalsmith Referral for O bstructive sleep apnea syndrome Please call patient to schedule. Referring Physician: Elvis Art Internal Medicine, Encounter Date: 02/08/2024 Referring Physician: Elvis Art Internal Medicine, Encounter Date: 02/08/2024 Gang Sawyer Referral for Type 2 diabetes mellitus without complication Please call patient to schedule. Referring Physician: Elvis Art Internal Medicine, Encounter Date: 02/08/2024 Vascular Surgeon Referral fo r Peripheral vascular disease Referring Physician: Shyam Keenan Medicine, Encounter Date: 02/08/2024 Dry Cell Battery Assembler Referral for Pr oteinuria Please call patient to schedule. Referring Physician: Shyam Keenan Medicine, Encounter Date: 02/08/2024 Fire Protection Specialist Referral for Es sential hypertension Referring Physician: Shyam Keenan Medicine, Encounter Date: 02/08/2024 Results Created Date Observation Date Name Description Value Unit Range Abnormal Flag Note LastModifiedBy Organization Detail LastModifiedTime 01/06/20 23 01/05/2023 MICRO ALBUM IN RANDO M URINE microalbumin , urine 324.6 mg/L 0.0-16 .6 high Not Available [facility] (Lab) [address] [place], [address], 01/05/2023 18:31:13 01/06/2001/05/2023 CBC/C OMPLE TE BLD COUNT W/DIF F white blood cells 9.5 x10'3 /uL 4.2-10 .8 Not Available [facility] (Lab) [address] [place], [address], 01/05/2023 13:14:01/06/2001/05/2023 CBC/C OMPLE TE BLD COUNT W/DIF F red blood cells 5.52 x10'6 /uL 4.10-5 .80 Not Available [facility] (Lab) [address] [place], [address], 01/05/2023 13:14:19 01/06/2001/05/2023 CBC/C OMPLE TE BLD COUNT W/DIF F hemoglobin 15.6 g/dL 13.2-1 7.0 Not Available [facility] (Lab) [address] [place], [address], 01/05/2023 13:14:01/06/2001/05/2023 CBC/C OMPLE TE BLD COUNT W/DIF F hematocrit 47.5 % 39.3-5 0.0 Not Available [facility] (Lab) [address] [place], [address], 01/05/2023 13:14:19 01/06/2001/05/2023 CBC/C OMPLE TE BLD COUNT W/DIF F mean red cell volume 86.1 fL 80.0-9 7.0 Not Available [facility] (Lab) [address] [place], [address], 01/05/2023 13:14:01/06/2001/05/2023 CBC/C OMPLE TE BLD COUNT W/DIF F mean red cell hemoglobin 28.3 pg 27.0-3 3.0 Not Available [facility] (Lab) [address] [place], [address], 01/05/2023 13:14:01/06/2001/05/2023 CBC/C OMPLE TE BLD COUNT W/DIF F mean RBC HGB concentratio n 32.8 g/dL 31.0-3 6.0 Not Available [facility] (Lab) [address] [place], [address], 01/05/2023 13:14:01/06/2001/05/2023 CBC/C OMPLE TE BLD COUNT W/DIF F red cell distribution width 14.3 % 11.8-1 5.5 Not Available [facility] (Lab) [address] [place], [address], 01/05/2023 13:14:01/06/2001/05/2023 CBC/C OMPLE TE BLD COUNT W/DIF F platelets 439 x10'3 /uL 150-40 0 high Not Available [facility] (Lab) [address] [place], [address], 01/05/2023 13:14:01/06/2001/05/2023 CBC/C OMPLE TE BLD COUNT W/DIF F mean platelet volume 9.9 fL 9.0-12 .4 Not Available [facility] (Lab) [address] [place], [address], 01/05/2023 13:14:01/06/2001/05/2023 CBC/C OMPLE TE BLD COUNT W/DIF F neutrophils 76.1 % 39.0-7 2.0 high Not Available [facility] (Lab) [address] [place], [address], 01/05/2023 13:14:01/06/2001/05/2023 CBC/C OMPLE TE BLD COUNT W/DIF F lymphocytes 14.5 % 16.0-4 7.0 low Not Available [facility] (Lab) [address] [place], [address], 01/05/2023 13:14:01/06/2001/05/2023 CBC/C OMPLE TE BLD COUNT W/DIF F monocytes 7.3 % 5.0-12 .0 Not Available [facility] (Lab) [address] [place], [address], 01/05/2023 13:14:01/06/2001/05/2023 CBC/C OMPLE TE BLD COUNT W/DIF F eosinophils 0.8 % 1.0-7. 0 low Not Available [facility] (Lab) [address] [place], [address], 01/05/2023 13:14:01/06/2001/05/2023 CBC/C OMPLE TE BLD COUNT W/DIF F basophils 0.8 % 0.0-2. 0 Not Available [facility] (Lab) [address] [place], [address], 01/05/2023 13:14:01/06/2001/05/2023 CBC/C OMPLE TE BLD COUNT W/DIF F immature granulocytes 0.5 % 0.00-0 .50 Not Available [facility] (Lab) [address] [place], [address], 01/05/2023 13:14:01/06/2001/05/2023 CBC/C OMPLE TE BLD COUNT W/DIF F neutrophils, absolute count 7.20 x10'3 /uL 1.5-8. 0 Not Available [facility] (Lab) [address] [place], [address], 01/05/2023 13:14:01/06/2001/05/2023 CBC/C OMPLE TE BLD COUNT W/DIF F lymphocytes, absolute count 1.37 x10'3 /uL 1.07-3 .43 Not Available [facility] (Lab) [address] [place], [address], 01/05/2023 13:14:01/06/2001/05/2023 CBC/C OMPLE TE BLD COUNT W/DIF F monocytes, absolute count 0.69 x10'3 /uL 0.29-0 .99 Not Available [facility] (Lab) [address] [place], [address], 01/05/2023 13:14:01/06/2001/05/2023 CBC/C OMPLE TE BLD COUNT W/DIF F eosinophils, absolute count 0.08 x10'3 /uL 0.02-0 .53 Not Available [facility] (Lab) [address] [place], [address], 01/05/2023 13:14:01/06/2001/05/2023 CBC/C OMPLE TE BLD COUNT W/DIF F basophils, absolute count 0.08 x10'3 /uL 0.01-0 .08 Not Available [facility] (Lab) [address] [place], [address], 01/05/2023 13:14:01/06/2001/05/2023 CBC/C OMPLE TE BLD COUNT W/DIF F immature granulocytes ,absolute 0.05 x10'3 /uL 0.00-0 .05 Not Available [facility] (Lab) [address] [place], [address], 01/05/2023 13:14:01/06/2001/05/2023 CBC/C OMPLE TE BLD COUNT W/DIF F nucleated red blood cells 0.0 % -0 Not Available [facility] (Lab) [address] [place], [address], 01/05/2023 13:14:19 01/06/20 23 01/05/2023 CBC/C OMPLE TE BLD COUNT W/DIF F NRBC# 0.00 x10'3 /uL Not Available [facility] (Lab) [address] [place] [address], [address], 01/05/2023 13:14:19 01/06/20 23 01/05/2023 LIPID PANEL cholesterol 161 mg/dL 140-19 9 NIH LEDA NSUS RECOM MENDA TION FOR EARNEST STERO L: ADULT CHILD LOW RISK: <200 <170 BORDE RLINE : <200- 239 ----- HIGH RISK: >240 >200 Not Available [facility] (Lab) [address] [place] [address], [address], 01/05/2023 13:19:56 01/06/20 23 01/05/2023 LIPID PANEL triglyceride s 131 mg/dL 0-150 NIH LEDA NSUS REPOR T RECOM MENDA TION FOR TRIGL YCERI ARGENIS: ADULT CHILD LOW RISK: <150 ----- BODER LINE: 150-1 99 ----- HIGH RISK: >200 ----- Not Available [facility] (Lab) [address] [place] [address], [address], 01/05/2023 13:19:56 01/06/20 23 01/05/2023 LIPID PANEL HDL cholesterol 42 mg/dL 40- Not Available [facility] (Lab) [address] [place] [address], [address], 01/05/2023 13:19:56 01/06/20 23 01/05/2023 LIPID PANEL [...] NOT BE REPOR MARIA ELENA. Not Available [facility] (Lab) [address] [place], [address], 01/05/2023 13:19:56 01/06/20 23 01/05/2023 COMPR EHENS GALLITO METAB OLIC PANEL sodium 135 mmol/ L 137-14 5 low Not Available [facility] (Lab) [address] [place], [address], 01/05/2023 13:20:17 01/06/20 23 01/05/2023 COMPR EHENS GALLITO METAB OLIC PANEL potassium 4.2 mmol/ L 3.5-5. 1 Not Available [facility] (Lab) [address] [place], [address], 01/05/2023 13:20:17 01/06/20 23 01/05/2023 COMPR EHENS GALLITO METAB OLIC PANEL chloride 97 mmol/ L 98-107 low Not Available [facility] (Lab) [address] [place], [address], 01/05/2023 13:20:17 01/06/20 23 01/05/2023 COMPR EHENS GALLITO METAB OLIC PANEL carbon dioxide 30 mmol/ L 22-30 Not Available [facility] (Lab) [address] [place], [address], 01/05/2023 13:20:17 01/06/20 23 01/05/2023 COMPR EHENS GALLITO METAB OLIC PANEL anion gap 12.2 mmol/ L 14-22 low Not Available [facility] (Lab) [address] [place], [address], 01/05/2023 13:20:17 01/06/20 23 01/05/2023 COMPR EHENS GALLITO METAB OLIC PANEL glucose 126 mg/dL 70-99 high Not Available [facility] (Lab) [address] [place], [address], 01/05/2023 13:20:17 01/06/20 23 01/05/2023 COMPR EHENS GALLITO METAB OLIC PANEL BUN 9 mg/dL 8-19 Not Available [facility] (Lab) [address] [place], [address], 01/05/2023 13:20:17 01/06/20 23 01/05/2023 COMPR EHENS GALLITO METAB OLIC PANEL creatinine 0.61 mg/dL 0.66-1 .25 low Not Available [facility] (Lab) [address] [place], [address], 01/05/2023 13:20:17 01/06/20 23 01/05/2023 COMPR EHENS GALLITO METAB OLIC PANEL GFR >60 Refer ence Range : [place] GFR Healt hy Adult : >60 [...] or ethni c subgr oups, such as ak nics. Outsi de the valid ated eric [...] calcu lator is avail able on the [facility] websi te: https :[email or web address] [email or web address].[email or web address] tenorioy.o rg/pr ofess ional s/kdo qi/gf r_cal culat or Not Available [facility] (Lab) [address] [place], [address], 01/05/2023 13:20:17 01/06/20 23 01/05/2023 COMPR EHENS GALLITO METAB OLIC PANEL alkaline phosphatase 84 U/L 38-126 Not Available [facility] (Lab) [address] [place], [address], 01/05/2023 13:20:17 01/06/20 23 01/05/2023 COMPR EHENS GALLITO METAB OLIC PANEL alanine aminotransfe rase 22 U/L 0-50 Not Available [facility] (Lab) [address] [place], [address], 01/05/2023 13:20:17 01/06/20 23 01/05/2023 COMPR EHENS GALLITO METAB OLIC PANEL aspartate aminotransfe rase 19 U/L 15-46 Not Available [facility] (Lab) [address] [place], [address], 01/05/2023 13:20:17 01/06/20 23 01/05/2023 COMPR EHENS GALLITO METAB OLIC PANEL bilirubin, total 0.30 mg/dL 0.20-1 .30 Not Available [facility] (Lab) [address] [place], [address], 01/05/2023 13:20:17 01/06/20 23 01/05/2023 COMPR EHENS GALLITO METAB OLIC PANEL calcium 9.5 mg/dL 8.4-10 .2 Not Available [facility] (Lab) [address] [place], [address], 01/05/2023 13:20:17 01/06/20 23 01/05/2023 COMPR EHENS GALLITO METAB OLIC PANEL total protein 6.8 g/dL 6.3-8. 2 Not Available [facility] (Lab) [address] [place], [address], 01/05/2023 13:20:17 01/06/20 23 01/05/2023 COMPR EHENS GALLITO METAB OLIC PANEL albumin 4.1 g/dL 3.0-4. 4 Not Available [facility] (Lab) [address] [place], [address], 01/05/2023 13:20:17 01/06/20 23 01/05/2023 COMPR EHENS GALLITO METAB OLIC PANEL globulin 2.7 g/dL 2.6-4. 2 Not Available [facility] (Lab) [address] [place], [address], 01/05/2023 13:20:17 01/06/20 23 01/05/2023 COMPR EHENS GALLITO METAB OLIC PANEL A/G ratio 1.5 ratio 1.0-2. 0 Not Available [facility] (Lab) [address] [place], [address], 01/05/2023 13:20:17 01/06/20 23 01/05/2023 T4 FREE free T4 1.19 NG/dL 0.78-2 .19 Not Available [facility] (Lab) [address] [place], [address], 01/05/2023 13:29:36 01/06/20 23 01/05/2023 TSH thyroid-stim ulating hormone 1.240 uIU/m L 0.465- 4.680 Not Available [facility] (Lab) [address] [place], [address], 01/05/2023 13:47:11 01/06/20 23 01/05/2023 HEMOG LOBIN A1C HA1C 6.3 % 4.0-6. 0 high Diabe lindsay Scree kerrie Crite janusz: <5.7% Consi stent with absen ce of diabe lindsay 5.7-6 .4% Consi stent with incre ased risk for diabe lindsay (pred iabet es) >OR=6 .5% Consi stent with diabe lindsay REFER ENCE: Diabe lindsya Care 2016, 39( ppl.1 ):s13 -s22 Not Available [facility] (Lab) [address] [place], [address], 01/05/2023 15:14:27 06/28/19 24 06/28/2023 PSA SCREE N PSA medicare screen 2.39 NG/mL 0.00-4 .00 Not Available [facility] (Lab) [address] [place], [address], 06/28/2023 17:56:28 07/01/19 24 07/01/2023 CBC/C OMPLE TE BLD COUNT W/DIF F white blood cells 9.3 x10'3 /uL 4.2-10 .8 Not Available [facility] (Lab) [address] [place], [address], 07/01/2023 13:24:10 07/01/19 24 07/01/2023 CBC/C OMPLE TE BLD COUNT W/DIF F red blood cells 5.50 x10'6 /uL 4.10-5 .80 Not Available [facility] (Lab) [address] [place], [address], 07/01/2023 13:24:10 07/01/19 24 07/01/2023 CBC/C OMPLE TE BLD COUNT W/DIF F hemoglobin 15.5 g/dL 13.2-1 7.0 Not Available [facility] (Lab) [address] [place], [address], 07/01/2023 13:24:10 07/01/19 24 07/01/2023 CBC/C OMPLE TE BLD COUNT W/DIF F hematocrit 47.9 % 39.3-5 0.0 Not Available [facility] (Lab) [address] [place], [address], 07/01/2023 13:24:10 07/01/19 24 07/01/2023 CBC/C OMPLE TE BLD COUNT W/DIF F mean red cell volume 87.1 fL 80.0-9 7.0 Not Available [facility] (Lab) [address] [place], [address], 07/01/2023 13:24:10 07/01/19 24 07/01/2023 CBC/C OMPLE TE BLD COUNT W/DIF F mean red cell hemoglobin 28.2 pg 27.0-3 3.0 Not Available [facility] (Lab) [address] [place], [address], 07/01/2023 13:24:10 07/01/19 24 07/01/2023 CBC/C OMPLE TE BLD COUNT W/DIF F mean RBC HGB concentratio n 32.4 g/dL 31.0-3 6.0 Not Available [facility] (Lab) [address] [place], [address], 07/01/2023 13:24:10 07/01/19 24 07/01/2023 CBC/C OMPLE TE BLD COUNT W/DIF F red cell distribution width 14.6 % 11.8-1 5.5 Not Available [facility] (Lab) [address] [place], [address], 07/01/2023 13:24:10 07/01/19 24 07/01/2023 CBC/C OMPLE TE BLD COUNT W/DIF F platelets 410 x10'3 /uL 150-40 0 high Not Available [facility] (Lab) [address] [place], [address], 07/01/2023 13:24:10 07/01/19 24 07/01/2023 CBC/C OMPLE TE BLD COUNT W/DIF F mean platelet volume 10.1 fL 9.0-12 .4 Not Available [facility] (Lab) [address] [place], [address], 07/01/2023 13:24:10 07/01/19 24 07/01/2023 CBC/C OMPLE TE BLD COUNT W/DIF F neutrophils 70.6 % 39.0-7 2.0 Not Available [facility] (Lab) [address] [place], [address], 07/01/2023 13:24:10 07/01/19 24 07/01/2023 CBC/C OMPLE TE BLD COUNT W/DIF F lymphocytes 17.0 % 16.0-4 7.0 Not Available [facility] (Lab) [address] [place], [address], 07/01/2023 13:24:10 07/01/19 24 07/01/2023 CBC/C OMPLE TE BLD COUNT W/DIF F monocytes 9.6 % 5.0-12 .0 Not Available [facility] (Lab) [address] [place], [address], 07/01/2023 13:24:10 07/01/19 24 07/01/2023 CBC/C OMPLE TE BLD COUNT W/DIF F eosinophils 1.3 % 1.0-7. 0 Not Available [facility] (Lab) [address] [place], [address], 07/01/2023 13:24:10 07/01/19 24 07/01/2023 CBC/C OMPLE TE BLD COUNT W/DIF F basophils 0.6 % 0.0-2. 0 Not Available [facility] (Lab) [address] [place], [address], 07/01/2023 13:24:10 07/01/19 24 07/01/2023 CBC/C OMPLE TE BLD COUNT W/DIF F immature granulocytes 0.9 % 0.00-0 .50 high Not Available [facility] (Lab) [address] [place], [address], 07/01/2023 13:24:10 07/01/19 24 07/01/2023 CBC/C OMPLE TE BLD COUNT W/DIF F neutrophils, absolute count 6.57 x10'3 /uL 1.5-8. 0 Not Available [facility] (Lab) [address] [place], [address], 07/01/2023 13:24:10 07/01/19 24 07/01/2023 CBC/C OMPLE TE BLD COUNT W/DIF F lymphocytes, absolute count 1.58 x10'3 /uL 1.07-3 .43 Not Available [facility] (Lab) [address] [place], [address], 07/01/2023 13:24:10 07/01/19 24 07/01/2023 CBC/C OMPLE TE BLD COUNT W/DIF F monocytes, absolute count 0.89 x10'3 /uL 0.29-0 .99 Not Available [facility] (Lab) [address] [place], [address], 07/01/2023 13:24:10 07/01/19 24 07/01/2023 CBC/C OMPLE TE BLD COUNT W/DIF F eosinophils, absolute count 0.12 x10'3 /uL 0.02-0 .53 Not Available [facility] (Lab) [address] [place], [address], 07/01/2023 13:24:10 07/01/19 24 07/01/2023 CBC/C OMPLE TE BLD COUNT W/DIF F basophils, absolute count 0.06 x10'3 /uL 0.01-0 .08 Not Available [facility] (Lab) [address] [place], [address], 07/01/2023 13:24:10 07/01/19 24 07/01/2023 CBC/C OMPLE TE BLD COUNT W/DIF F immature granulocytes ,absolute 0.08 x10'3 /uL 0.00-0 .05 high Not Available [facility] (Lab) [address] [place], [address], 07/01/2023 13:24:10 07/01/19 24 07/01/2023 CBC/C OMPLE TE BLD COUNT W/DIF F nucleated red blood cells 0.0 % -0 Not Available [facility] (Lab) [address] [place], [address], 07/01/2023 13:24:10 07/01/19 24 07/01/2023 CBC/C OMPLE TE BLD COUNT W/DIF F NRBC# 0.00 x10'3 /uL Not Available [facility] (Lab) [address] [place], [address], 07/01/2023 13:24:10 07/01/19 24 07/01/2023 MICRO ALBUM IN RANDO M URINE microalbumin , urine 305.4 mg/L 0.0-16 .6 high Not Available [facility] (Lab) [address] [place], [address], 07/01/2023 14:23:31 07/01/19 24 07/01/2023 LIPID PANEL cholesterol 194 mg/dL 140-19 9 NIH LEDA NSUS RECOM MENDA TION FOR EARNEST STERO L: ADULT CHILD LOW RISK: <200 <170 BORDE RLINE : <200- 239 ----- HIGH RISK: >240 >200 Not Available [facility] (Lab) [address] [place], [address], 07/01/2023 14:45:56 07/01/1907/01/2023 LIPID PANEL triglyceride s 211 mg/dL 0-150 high NIH LEDA NSUS REPOR T RECOM MENDA TION FOR TRIGL YCERI ARGENIS: ADULT CHILD LOW RISK: <150 ----- BODER LINE: 150-1 99 ----- HIGH RISK: >200 ----- Not Available [facility] (Lab) [address] [place], [address], 07/01/2023 14:45:56 07/01/19 24 07/01/2023 LIPID PANEL HDL cholesterol 40 mg/dL 40- Not Available [facility] (Lab) [address] [place], [address], 07/01/2023 14:45:56 07/01/19 24 07/01/2023 LIPID PANEL [...] NOT BE REPOR MARIA ELENA. Not Available [facility] (Lab) [address] [place], [address], 07/01/2023 14:45:56 07/01/19 24 07/01/2023 COMPR EHENS GALLITO METAB OLIC PANEL sodium 135 mmol/ L 137-14 5 low Not Available [facility] (Lab) [address] [place], [address], 07/01/2023 14:46:12 07/01/19 24 07/01/2023 COMPR EHENS GALLITO METAB OLIC PANEL potassium 4.7 mmol/ L 3.5-5. 1 Not Available [facility] (Lab) [address] [place], [address], 07/01/2023 14:46:12 07/01/19 24 07/01/2023 COMPR EHENS GALLITO METAB OLIC PANEL chloride 99 mmol/ L 98-107 Not Available [facility] (Lab) [address] [place], [address], 07/01/2023 14:46:12 07/01/19 24 07/01/2023 COMPR EHENS GALLITO METAB OLIC PANEL carbon dioxide 29 mmol/ L 22-30 Not Available [facility] (Lab) [address] [place], [address], 07/01/2023 14:46:12 07/01/19 24 07/01/2023 COMPR EHENS GALLITO METAB OLIC PANEL anion gap 11.7 mmol/ L 14-22 low Not Available [facility] (Lab) [address] [place], [address], 07/01/2023 14:46:12 07/01/19 24 07/01/2023 COMPR EHENS GALLITO METAB OLIC PANEL glucose 124 mg/dL 70-99 high Not Available [facility] (Lab) [address] [place], [address], 07/01/2023 14:46:12 07/01/19 24 07/01/2023 COMPR EHENS GALLITO METAB OLIC PANEL BUN 9 mg/dL 8-19 Not Available [facility] (Lab) [address] [place], [address], 07/01/2023 14:46:12 07/01/19 24 07/01/2023 COMPR EHENS GALLITO METAB OLIC PANEL creatinine 0.54 mg/dL 0.66-1 .25 low Not Available [facility] (Lab) [address] [place], [address], 07/01/2023 14:46:12 07/01/19 24 07/01/2023 COMPR EHENS GALLITO METAB OLIC PANEL GFR >60 Refer ence Range : [place] GFR Healt hy Adult : >60 [...] calcu lator is avail able on the [facility] websi te: https :[email or web address] saul.o toma/pr katyaess ional s/kdo qi/gf r_cal culat or Not Available [facility] (Lab) [address] [place], [address], 07/01/2023 14:46:12 07/01/19 24 07/01/2023 COMPR EHENS GALLITO METAB OLIC PANEL alkaline phosphatase 95 U/L 38-126 Not Available [facility] (Lab) [address] [place], [address], 07/01/2023 14:46:12 07/01/19 24 07/01/2023 COMPR EHENS GALLITO METAB OLIC PANEL alanine aminotransfe rase 33 U/L 0-50 Not Available [facility] (Lab) [address] [place], [address], 07/01/2023 14:46:12 07/01/19 24 07/01/2023 COMPR EHENS GALLITO METAB OLIC PANEL aspartate aminotransfe rase 27 U/L 15-46 Not Available [facility] (Lab) [address] [place], [address], 07/01/2023 14:46:12 07/01/19 24 07/01/2023 COMPR EHENS GALLITO METAB OLIC PANEL bilirubin, total 0.50 mg/dL 0.20-1 .30 Not Available [facility] (Lab) [address] [place], [address], 07/01/2023 14:46:12 07/01/19 24 07/01/2023 COMPR EHENS GALLITO METAB OLIC PANEL calcium 9.6 mg/dL 8.4-10 .2 Not Available [facility] (Lab) [address] [place], [address], 07/01/2023 14:46:12 07/01/19 24 07/01/2023 COMPR EHENS GALLITO METAB OLIC PANEL total protein 7.1 g/dL 6.3-8. 2 Not Available [facility] (Lab) [address] [place], [address], 07/01/2023 14:46:12 07/01/19 24 07/01/2023 COMPR EHENS GALLITO METAB OLIC PANEL albumin 4.2 g/dL 3.0-4. 4 Not Available [facility] (Lab) [address] [place], [address], 07/01/2023 14:46:12 07/01/19 24 07/01/2023 COMPR EHENS GALLITO METAB OLIC PANEL globulin 2.9 g/dL 2.6-4. 2 Not Available [facility] (Lab) [address] [place], [address], 07/01/2023 14:46:12 07/01/19 24 07/01/2023 COMPR EHENS GALLITO METAB OLIC PANEL A/G ratio 1.4 ratio 1.0-2. 0 Not Available [facility] (Lab) [address] [place], [address], 07/01/2023 14:46:12 07/01/19 24 07/01/2023 HEMOG LOBIN A1C HA1C 6.4 % 4.0-6. 0 high Diabe lindsay Scree kerrie Crite janusz: <5.7% Consi stent with absen ce of diabe lindsay 5.7-6 .4% Consi stent with incre ased risk for diabe lindsay (pred iabet es) >OR=6 .5% Consi stent with diabe lindsay REFER ENCE: Diabe lindsay Care 2016, 39(Benson ppl.1 ):s13 -s22 Not Available [facility] (Lab) [address] [place], [address], 07/01/2023 14:59:19 07/01/19 24 07/01/2023 T4 FREE free T4 0.83 NG/dL 0.78-2 .19 Not Available [facility] (Lab) [address] [place], [address], 07/01/2023 15:49:02 07/01/19 24 07/01/2023 TSH thyroid-stim ulating hormone 1.650 uIU/m L 0.465- 4.680 Not Available [facility] (Lab) [address] [place], [address], 07/01/2023 15:59:17 10/07/19 24 10/07/2023 CBC/C OMPLE TE BLD COUNT W/DIF F white blood cells 8.1 x10'3 /uL 4.2-10 .8 Not Available [facility] (Lab) [address] [place], [address], 10/07/2023 12:38:42 10/07/19 24 10/07/2023 CBC/C OMPLE TE BLD COUNT W/DIF F red blood cells 5.54 x10'6 /uL 4.10-5 .80 Not Available [facility] (Lab) [address] [place], [address], 10/07/2023 12:38:42 10/07/19 24 10/07/2023 CBC/C OMPLE TE BLD COUNT W/DIF F hemoglobin 15.7 g/dL 13.2-1 7.0 Not Available [facility] (Lab) [address] [place], [address], 10/07/2023 12:38:42 10/07/19 24 10/07/2023 CBC/C OMPLE TE BLD COUNT W/DIF F hematocrit 47.3 % 39.3-5 0.0 Not Available [facility] (Lab) [address] [place], [address], 10/07/2023 12:38:42 10/07/19 24 10/07/2023 CBC/C OMPLE TE BLD COUNT W/DIF F mean red cell volume 85.4 fL 80.0-9 7.0 Not Available [facility] (Lab) [address] [place], [address], 10/07/2023 12:38:42 10/07/19 24 10/07/2023 CBC/C OMPLE TE BLD COUNT W/DIF F mean red cell hemoglobin 28.3 pg 27.0-3 3.0 Not Available [facility] (Lab) [address] [place], [address], 10/07/2023 12:38:42 10/07/19 24 10/07/2023 CBC/C OMPLE TE BLD COUNT W/DIF F mean RBC HGB concentratio n 33.2 g/dL 31.0-3 6.0 Not Available [facility] (Lab) [address] [place], [address], 10/07/2023 12:38:42 10/07/19 24 10/07/2023 CBC/C OMPLE TE BLD COUNT W/DIF F red cell distribution width 14.6 % 11.8-1 5.5 Not Available [facility] (Lab) [address] [place], [address], 10/07/2023 12:38:42 10/07/19 24 10/07/2023 CBC/C OMPLE TE BLD COUNT W/DIF F platelets 395 x10'3 /uL 150-40 0 Not Available [facility] (Lab) [address] [place], [address], 10/07/2023 12:38:42 10/07/19 24 10/07/2023 CBC/C OMPLE TE BLD COUNT W/DIF F mean platelet volume 9.8 fL 9.0-12 .4 Not Available [facility] (Lab) [address] [place], [address], 10/07/2023 12:38:42 10/07/19 24 10/07/2023 CBC/C OMPLE TE BLD COUNT W/DIF F neutrophils 68.9 % 39.0-7 2.0 Not Available [facility] (Lab) [address] [place], [address], 10/07/2023 12:38:42 10/07/19 24 10/07/2023 CBC/C OMPLE TE BLD COUNT W/DIF F lymphocytes 18.7 % 16.0-4 7.0 Not Available [facility] (Lab) [address] [place], [address], 10/07/2023 12:38:42 10/07/19 24 10/07/2023 CBC/C OMPLE TE BLD COUNT W/DIF F monocytes 9.3 % 5.0-12 .0 Not Available [facility] (Lab) [address] [place], [address], 10/07/2023 12:38:42 10/07/19 24 10/07/2023 CBC/C OMPLE TE BLD COUNT W/DIF F eosinophils 1.1 % 1.0-7. 0 Not Available [facility] (Lab) [address] [place], [address], 10/07/2023 12:38:42 10/07/19 24 10/07/2023 CBC/C OMPLE TE BLD COUNT W/DIF F basophils 1.1 % 0.0-2. 0 Not Available [facility] (Lab) [address] [place], [address], 10/07/2023 12:38:42 10/07/19 24 10/07/2023 CBC/C OMPLE TE BLD COUNT W/DIF F immature granulocytes 0.9 % 0.00-0 .50 high Not Available [facility] (Lab) [address] [place], [address], 10/07/2023 12:38:42 10/07/19 24 10/07/2023 CBC/C OMPLE TE BLD COUNT W/DIF F neutrophils, absolute count 5.56 x10'3 /uL 1.5-8. 0 Not Available [facility] (Lab) [address] [place], [address], 10/07/2023 12:38:42 10/07/19 24 10/07/2023 CBC/C OMPLE TE BLD COUNT W/DIF F lymphocytes, absolute count 1.51 x10'3 /uL 1.07-3 .43 Not Available [facility] (Lab) [address] [place], [address], 10/07/2023 12:38:42 10/07/19 24 10/07/2023 CBC/C OMPLE TE BLD COUNT W/DIF F monocytes, absolute count 0.75 x10'3 /uL 0.29-0 .99 Not Available [facility] (Lab) [address] [place], [address], 10/07/2023 12:38:42 10/07/19 24 10/07/2023 CBC/C OMPLE TE BLD COUNT W/DIF F eosinophils, absolute count 0.09 x10'3 /uL 0.02-0 .53 Not Available [facility] (Lab) [address] [place], [address], 10/07/2023 12:38:42 10/07/19 24 10/07/2023 CBC/C OMPLE TE BLD COUNT W/DIF F basophils, absolute count 0.09 x10'3 /uL 0.01-0 .08 high Not Available [facility] (Lab) [address] [place], [address], 10/07/2023 12:38:42 10/07/19 24 10/07/2023 CBC/C OMPLE TE BLD COUNT W/DIF F immature granulocytes ,absolute 0.07 x10'3 /uL 0.00-0 .05 high Not Available [facility] (Lab) [address] [place], [address], 10/07/2023 12:38:42 10/07/19 24 10/07/2023 CBC/C OMPLE TE BLD COUNT W/DIF F nucleated red blood cells 0.0 % -0 Not Available [facility] (Lab) [address] [place], [address], 10/07/2023 12:38:42 10/07/19 24 10/07/2023 CBC/C OMPLE TE BLD COUNT W/DIF F NRBC# 0.00 x10'3 /uL Not Available [facility] (Lab) [address] [place], [address], 10/07/2023 12:38:42 10/07/19 24 10/07/2023 LIPID PANEL cholesterol 182 mg/dL 140-19 9 NIH LEDA NSUS RECOM MENDA TION FOR EARNEST STERO L: ADULT CHILD LOW RISK: <200 <170 BORDE RLINE : <200- 239 ----- HIGH RISK: >240 >200 Not Available [facility] (Lab) [address] [place], [address], 10/07/2023 12:50:26 10/07/19 24 10/07/2023 LIPID PANEL triglyceride s 166 mg/dL 0-150 high NIH LEDA NSUS REPOR T RECOM MENDA TION FOR TRIGL YCERI ARGENIS: ADULT CHILD LOW RISK: <150 ----- BODER LINE: 150-1 99 ----- HIGH RISK: >200 ----- Not Available [facility] (Lab) [address] [place], [address], 10/07/2023 12:50:26 10/07/19 24 10/07/2023 LIPID PANEL HDL cholesterol 40 mg/dL 40- Not Available [facility] (Lab) [address] [place], [address], 10/07/2023 12:50:26 10/07/19 24 10/07/2023 LIPID PANEL LDL cholesterol, calculated 109 mg/dL 0-130 NIH LEDA NSUS REPOR T RECOM MENDA TIONS FOR LDL: ADULT CHILD LOW RISK <130 <110 (OPTI MAL LDL) <100 ----- BORHENRIQUE RLINE : 130-1 59 ----- HIGH RISK: >160 >130 A TRIGL YCERI DE RESUL T >400 INVAL IDATE S THE CALCU LATIO N FOR LDL FRACT IONAT ION - THE LDL RESUL T WILL NOT BE REPOR MARIA ELENA. Not Available [facility] (Lab) [address] [place], [address], 10/07/2023 12:50:26 10/07/19 24 10/07/2023 COMPR EHENS GALLITO METAB OLIC PANEL sodium 134 mmol/ L 137-14 5 low Not Available [facility] (Lab) [address] [place], [address], 10/07/2023 12:50:38 10/07/19 24 10/07/2023 COMPR EHENS GALLITO METAB OLIC PANEL potassium 4.6 mmol/ L 3.5-5. 1 Not Available [facility] (Lab) [address] [place], [address], 10/07/2023 12:50:38 10/07/19 24 10/07/2023 COMPR EHENS GALLITO METAB OLIC PANEL chloride 103 mmol/ L 98-107 Not Available [facility] (Lab) [address] [place], [address], 10/07/2023 12:50:38 10/07/19 24 10/07/2023 COMPR EHENS GALLITO METAB OLIC PANEL carbon dioxide 26 mmol/ L 22-30 Not Available [facility] (Lab) [address] [place], [address], 10/07/2023 12:50:38 10/07/19 24 10/07/2023 COMPR EHENS GALLITO METAB OLIC PANEL anion gap 9.6 mmol/ L 14-22 low Not Available [facility] (Lab) [address] [place], [address], 10/07/2023 12:50:38 10/07/19 24 10/07/2023 COMPR EHENS GALLITO METAB OLIC PANEL glucose 116 mg/dL 70-99 high Not Available [facility] (Lab) [address] [place], [address], 10/07/2023 12:50:38 10/07/19 24 10/07/2023 COMPR EHENS GALLITO METAB OLIC PANEL BUN 12 mg/dL 8-19 Not Available [facility] (Lab) [address] [place], [address], 10/07/2023 12:50:38 10/07/19 24 10/07/2023 COMPR EHENS GALLITO METAB OLIC PANEL creatinine 0.58 mg/dL 0.66-1 .25 low Not Available [facility] (Lab) [address] [place], [address], 10/07/2023 12:50:38 10/07/19 24 10/07/2023 COMPR EHENS GALLITO METAB OLIC PANEL GFR >60 Refer ence Range : [place] GFR Healt hy Adult : >60 [...] calcu lator is avail able on the [facility] websi te: https :[email or web address] [email or web address] rg/pr ofess ional s/kdo qi/gf r_cal culat or Not Available [facility] (Lab) [address] [place], [address], 10/07/2023 12:50:38 10/07/19 24 10/07/2023 COMPR EHENS GALLITO METAB OLIC PANEL alkaline phosphatase 82 U/L 38-126 Not Available [facility] (Lab) [address] [place], [address], 10/07/2023 12:50:38 10/07/19 24 10/07/2023 COMPR EHENS GALLITO METAB OLIC PANEL alanine aminotransfe rase 35 U/L 0-50 Not Available [facility] (Lab) [address] [place], [address], 10/07/2023 12:50:38 10/07/19 24 10/07/2023 COMPR EHENS GALLITO METAB OLIC PANEL aspartate aminotransfe rase 31 U/L 15-46 Not Available [facility] (Lab) [address] [place], [address], 10/07/2023 12:50:38 10/07/19 24 10/07/2023 COMPR EHENS GALLITO METAB OLIC PANEL bilirubin, total 0.40 mg/dL 0.20-1 .30 Not Available [facility] (Lab) [address] [place], [address], 10/07/2023 12:50:38 10/07/19 24 10/07/2023 COMPR EHENS GALLITO METAB OLIC PANEL calcium 9.1 mg/dL 8.4-10 .2 Not Available [facility] (Lab) [address] [place], [address], 10/07/2023 12:50:38 10/07/19 24 10/07/2023 COMPR EHENS GALLITO METAB OLIC PANEL total protein 6.9 g/dL 6.3-8. 2 Not Available [facility] (Lab) [address] [place], [address], 10/07/2023 12:50:38 10/07/19 24 10/07/2023 COMPR EHENS GALLITO METAB OLIC PANEL albumin 4.2 g/dL 3.0-4. 4 Not Available [facility] (Lab) [address] [place], [address], 10/07/2023 12:50:38 10/07/19 24 10/07/2023 COMPR EHENS GALLITO METAB OLIC PANEL globulin 2.7 g/dL 2.6-4. 2 Not Available [facility] (Lab) [address] [place], [address], 10/07/2023 12:50:38 10/07/19 24 10/07/2023 COMPR EHENS GALLITO METAB OLIC PANEL A/G ratio 1.6 ratio 1.0-2. 0 Not Available [facility] (Lab) [address] [place], [address], 10/07/2023 12:50:38 10/07/19 24 10/07/2023 T4 FREE free T4 0.97 NG/dL 0.78-2 .19 Not Available [facility] (Lab) [address] [place], [address], 10/07/2023 13:11:37 10/07/19 24 10/07/2023 TSH thyroid-stim ulating hormone 1.270 uIU/m L 0.465- 4.680 Not Available [facility] (Lab) [address] [place], [address], 10/07/2023 13:44:08 10/07/19 24 10/07/2023 HEMOG LOBIN A1C HA1C 6.4 % 4.0-6. 0 high Diabe lindsay Scree kerrie Crite janusz: <5.7% Consi stent with absen ce of diabe lindsay 5.7-6 .4% Consi stent with incre ased risk for diabe lindsay (pred iabet es) >OR=6 .5% Consi stent with diabe lindsay REFER ENCE: Diabe lindsay Care 2016, 39(Benson ppl.1 ):s13 -s22 Not Available [facility] (Lab) [address] [place], [address], 10/07/2023 13:53:04 10/07/19 24 10/07/2023 MICRO ALBUM IN RANDO M URINE microalbumin , urine 350.3 mg/L 0.0-16 .6 high Not Available [facility] (Lab) [address] [place], [address], 10/07/2023 15:33:48 02/03/20 24 02/03/2024 CBC/C OMPLE TE BLD COUNT W/DIF F white blood cells 9.5 x10'3 /uL 4.2-10 .8 Not Available [facility] (Lab) [address] [place], [address], 02/03/2024 12:01:38 02/03/2002/03/2024 CBC/C OMPLE TE BLD COUNT W/DIF F red blood cells 5.66 x10'6 /uL 4.10-5 .80 Not Available [facility] (Lab) [address] [place], [address], 02/03/2024 12:01:38 02/03/2002/03/2024 CBC/C OMPLE TE BLD COUNT W/DIF F hemoglobin 16.5 g/dL 13.2-1 7.0 Not Available [facility] (Lab) [address] [place], [address], 02/03/2024 12:01:38 02/03/2002/03/2024 CBC/C OMPLE TE BLD COUNT W/DIF F hematocrit 48.8 % 39.3-5 0.0 Not Available [facility] (Lab) [address] [place], [address], 02/03/2024 12:01:38 02/03/2002/03/2024 CBC/C OMPLE TE BLD COUNT W/DIF F mean red cell volume 86.2 fL 80.0-9 7.0 Not Available [facility] (Lab) [address] [place], [address], 02/03/2024 12:01:38 02/03/2002/03/2024 CBC/C OMPLE TE BLD COUNT W/DIF F mean red cell hemoglobin 29.2 pg 27.0-3 3.0 Not Available [facility] (Lab) [address] [place], [address], 02/03/2024 12:01:38 02/03/2002/03/2024 CBC/C OMPLE TE BLD COUNT W/DIF F mean RBC HGB concentratio n 33.8 g/dL 31.0-3 6.0 Not Available [facility] (Lab) [address] [place], [address], 02/03/2024 12:01:38 02/03/2002/03/2024 CBC/C OMPLE TE BLD COUNT W/DIF F red cell distribution width 14.3 % 11.8-1 5.5 Not Available [facility] (Lab) [address] [place], [address], 02/03/2024 12:01:38 02/03/2002/03/2024 CBC/C OMPLE TE BLD COUNT W/DIF F platelets 405 x10'3 /uL 150-40 0 high Not Available [facility] (Lab) [address] [place], [address], 02/03/2024 12:01:38 02/03/2002/03/2024 CBC/C OMPLE TE BLD COUNT W/DIF F mean platelet volume 9.9 fL 9.0-12 .4 Not Available [facility] (Lab) [address] [place], [address], 02/03/2024 12:01:38 02/03/2002/03/2024 CBC/C OMPLE TE BLD COUNT W/DIF F neutrophils 71.0 % 39.0-7 2.0 Not Available [facility] (Lab) [address] [place], [address], 02/03/2024 12:01:38 02/03/2002/03/2024 CBC/C OMPLE TE BLD COUNT W/DIF F lymphocytes 16.3 % 16.0-4 7.0 Not Available [facility] (Lab) [address] [place], [address], 02/03/2024 12:01:38 02/03/20 24 02/03/2024 CBC/C OMPLE TE BLD COUNT W/DIF F monocytes 9.1 % 5.0-12 .0 Not Available [facility] (Lab) [address] [place], [address], 02/03/2024 12:01:38 02/03/2002/03/2024 CBC/C OMPLE TE BLD COUNT W/DIF F eosinophils 1.6 % 1.0-7. 0 Not Available [facility] (Lab) [address] [place], [address], 02/03/2024 12:01:38 02/03/2002/03/2024 CBC/C OMPLE TE BLD COUNT W/DIF F basophils 1.2 % 0.0-2. 0 Not Available [facility] (Lab) [address] [place], [address], 02/03/2024 12:01:38 02/03/2002/03/2024 CBC/C OMPLE TE BLD COUNT W/DIF F immature granulocytes 0.8 % 0.00-0 .50 high Not Available [facility] (Lab) [address] [place], [address], 02/03/2024 12:01:38 02/03/2002/03/2024 CBC/C OMPLE TE BLD COUNT W/DIF F neutrophils, absolute count 6.75 x10'3 /uL 1.5-8. 0 Not Available [facility] (Lab) [address] [place], [address], 02/03/2024 12:01:38 02/03/2002/03/2024 CBC/C OMPLE TE BLD COUNT W/DIF F lymphocytes, absolute count 1.55 x10'3 /uL 1.07-3 .43 Not Available [facility] (Lab) [address] [place], [address], 02/03/2024 12:01:38 02/03/20 24 02/03/2024 CBC/C OMPLE TE BLD COUNT W/DIF F monocytes, absolute count 0.86 x10'3 /uL 0.29-0 .99 Not Available [facility] (Lab) [address] [place], [address], 02/03/2024 12:01:38 02/03/2002/03/2024 CBC/C OMPLE TE BLD COUNT W/DIF F eosinophils, absolute count 0.15 x10'3 /uL 0.02-0 .53 Not Available [facility] (Lab) [address] [place], [address], 02/03/2024 12:01:38 02/03/2002/03/2024 CBC/C OMPLE TE BLD COUNT W/DIF F basophils, absolute count 0.11 x10'3 /uL 0.01-0 .08 high Not Available [facility] (Lab) [address] [place], [address], 02/03/2024 12:01:38 02/03/2002/03/2024 CBC/C OMPLE TE BLD COUNT W/DIF F immature granulocytes ,absolute 0.08 x10'3 /uL 0.00-0 .05 high Not Available [facility] (Lab) [address] [place], [address], 02/03/2024 12:01:38 02/03/20 24 02/03/2024 CBC/C OMPLE TE BLD COUNT W/DIF F nucleated red blood cells 0.0 % -0 Not Available [facility] (Lab) [address] [place], [address], 02/03/2024 12:01:38 02/03/2002/03/2024 CBC/C OMPLE TE BLD COUNT W/DIF F NRBC# 0.00 x10'3 /uL Not Available [facility] (Lab) [address] [place], [address], 02/03/2024 12:01:38 02/03/2002/03/2024 MICRO ALBUM IN RANDO M URINE microalbumin , urine 532.3 mg/L 0.0-16 .6 high Not Available [facility] (Lab) [address] [place], [address], 02/03/2024 12:41:18 02/03/20 24 02/03/2024 LIPID PANEL cholesterol 199 mg/dL 140-19 9 NIH LEDA NSUS RECOM MENDA TION FOR EARNEST STERO L: ADULT CHILD LOW RISK: <200 <170 BORDE RLINE : <200- 239 ----- HIGH RISK: >240 >200 Not Available [facility] (Lab) [address] [place], [address], 02/03/2024 12:42:08 02/03/20 24 02/03/2024 LIPID PANEL triglyceride s 149 mg/dL 0-150 NIH LEDA NSUS REPOR T RECOM MENDA TION FOR TRIGL YCERI ARGENIS: ADULT CHILD LOW RISK: <150 ----- BODER LINE: 150-1 99 ----- HIGH RISK: >200 ----- Not Available [facility] (Lab) [address] [place], [address], 02/03/2024 12:42:08 02/03/20 24 02/03/2024 LIPID PANEL HDL cholesterol 42 mg/dL 40- Not Available [facility] (Lab) [address] [place], [address], 02/03/2024 12:42:08 02/03/20 24 02/03/2024 LIPID PANEL [...] NOT BE REPOR MARIA ELENA. Not Available [facility] (Lab) [address] [place], [address], 02/03/2024 12:42:08 02/03/2002/03/2024 COMPR EHENS GALLITO METAB OLIC PANEL sodium 134 mmol/ L 137-14 5 low Not Available [facility] (Lab) [address] [place], [address], 02/03/2024 12:42:28 02/03/2002/03/2024 COMPR EHENS GALLITO METAB OLIC PANEL potassium 4.3 mmol/ L 3.5-5. 1 Not Available [facility] (Lab) [address] [place], [address], 02/03/2024 12:42:28 02/03/2002/03/2024 COMPR EHENS GALLITO METAB OLIC PANEL chloride 98 mmol/ L 98-107 Not Available [facility] (Lab) [address] [place], [address], 02/03/2024 12:42:28 02/03/2002/03/2024 COMPR EHENS GALLITO METAB OLIC PANEL carbon dioxide 30 mmol/ L 22-30 Not Available [facility] (Lab) [address] [place], [address], 02/03/2024 12:42:28 02/03/2002/03/2024 COMPR EHENS GALLITO METAB OLIC PANEL anion gap 10.3 mmol/ L 14-22 low Not Available [facility] (Lab) [address] [place], [address], 02/03/2024 12:42:28 02/03/2002/03/2024 COMPR EHENS GALLITO METAB OLIC PANEL glucose 122 mg/dL 70-99 high Not Available [facility] (Lab) [address] [place], [address], 02/03/2024 12:42:28 02/03/202024 COMPR EHENS GALLITO METAB OLIC PANEL BUN 9 mg/dL 8-19 Not Available [facility] (Lab) [address] [place], [address], 02/03/2024 12:42:28 02/03/20 24 02/03/2024 COMPR EHENS GALLITO METAB OLIC PANEL creatinine 0.65 mg/dL 0.66-1 .25 low Not Available [facility] (Lab) [address] [place], [address], 02/03/2024 12:42:28 02/03/2002/03/2024 COMPR EHENS GALLITO METAB OLIC PANEL GFR >60 Refer ence Range : [place] ge GFR Healt hy Adult : >60 [...] or ethni c subgr oups, such as Micky nics. Outsi de the valid ated eric [...] able on the F websi te: https ://eda saul.o rg/pr ofess ional s/kdo qi/gf r_cal culat or Not Available [facility] (Lab) [address] [place], [address], 02/03/2024 12:42:28 02/03/2002/03/2024 COMPR EHENS GALLITO METAB OLIC PANEL alkaline phosphatase 96 U/L 38-126 Not Available [facility] (Lab) [address] [place], [address], 02/03/2024 12:42:28 02/03/2002/03/2024 COMPR EHENS GALLITO METAB OLIC PANEL alanine aminotransfe rase 36 U/L 0-50 Not Available [facility] (Lab) [address] [place], [address], 02/03/2024 12:42:28 02/03/2002/03/2024 COMPR EHENS GALLITO METAB OLIC PANEL aspartate aminotransfe rase 30 U/L 15-46 Not Available [facility] (Lab) [address] [place], [address], 02/03/2024 12:42:28 02/03/2002/03/2024 COMPR EHENS GALLITO METAB OLIC PANEL bilirubin, total 0.40 mg/dL 0.20-1 .30 Not Available [facility] (Lab) [address] [place], [address], 02/03/2024 12:42:28 02/03/2002/03/2024 COMPR EHENS GALLITO METAB OLIC PANEL calcium 9.5 mg/dL 8.4-10 .2 Not Available [facility] (Lab) [address] [place], [address], 02/03/2024 12:42:28 02/03/2002/03/2024 COMPR EHENS GALLITO METAB OLIC PANEL total protein 6.9 g/dL 6.3-8. 2 Not Available [facility] (Lab) [address] [place], [address], 02/03/2024 12:42:28 02/03/20 02/03/2024 COMPR EHENS GALLITO METAB OLIC PANEL albumin 4.1 g/dL 3.0-4. 4 Not Available [facility] (Lab) [address] [place], [address], 02/03/2024 12:42:28 02/03/20 24 02/03/2024 COMPR EHENS GALLITO METAB OLIC PANEL globulin 2.8 g/dL 2.6-4. 2 Not Available [facility] (Lab) [address] [place], [address], 02/03/2024 12:42:28 02/03/2002/03/2024 COMPR EHENS GALLITO METAB OLIC PANEL A/G ratio 1.5 ratio 1.0-2. 0 Not Available [facility] (Lab) [address] [place], [address], 02/03/2024 12:42:28 02/03/2002/03/2024 T4 FREE free T4 1.08 NG/dL 0.78-2 .19 Not Available [facility] (Lab) [address] [place], [address], 02/03/2024 12:59:38 02/03/2002/03/2024 HEMOG LOBIN A1C HA1C 6.4 % 4.0-6. 0 high Diabe lindsay Scree kerrie Crite janusz: <5.7% Consi stent with absen ce of diabe lindsay 5.7-6 .4% Consi stent with incre ased risk for diabe lindsay (pred iabet es) >OR=6 .5% Consi stent with diabe lindsay REFER ENCE: Diabe lindsay Care 2016, 39(Benson ppl.1 ):s13 -s22 Not Available [facility] (Lab) [address] [place], [address], 02/03/2024 13:07:09 02/03/20 24 02/03/2024 TSH thyroid-stim ulating hormone 1.250 uIU/m L 0.465- 4.680 Not Available [facility] (Lab) [address], [place], [address], 02/03/2024 13:15:29 01/19/20 23 01/18/2023 LDCT, chest , for lung cance r scree kerrie [facility] [address] [facility] [address], [place] [phone] Patien t Name: DUC MARRERO Access ion #: [id number] Sex: M : 1955 6 Dictat ed By: Yen ruelas Attend ing Physic wallace: JENNIFER DELATORRE Physic wallace: RICHARD RAZA Exam Date: 2022 10:25 AM Exam Name: CT LOW DOSE CNCR SCREEN ING Admitt ing Diagno sis(es ): CLINIC AL INFORM ATION: Lung cancer screen ing. Curren t smoker . 50+ pack-y ear histor [...] 2022 13:10: 33 PM Page [email or web address] [facility] (Imaging) [address] [place], [address], 01/26/2023 16:43:16 01/19/20 23 01/18/2023 LDCT, chest , for lung cance r scree kerrie No observ ation record ed. [email or web address] (Radiology) [address] [place], [address], 04/29/2023 12:09:51 01/19/20 23 01/18/2023 LDCT, chest , for lung cance r scree kerrie No observ ation record ed. [email or web address] (Radiology) [address] [place], [address], 04/29/2023 12:09:52 08/12/19 24 08/12/2023 US, echoc ardio gram No observ ation record ed. [email or web address] [facility] [address], [place], [address], 02/08/2024 15:13:21 08/12/19 24 08/12/2023 US, duple x, arter ial, lower extre mity No observ ation record ed. [email or web address] [facility] [address], [place], [address], 02/08/2024 15:13:21 08/12/19 24 08/12/2023 US, duple x, aorta No observ ation record ed. [email or web address] [facility] [address], [place], [address], 02/08/2024 15:13:22 08/19/19 24 08/19/2023 nucle ar stres s test No observ ation record ed. [facility] [address], [place], [address], 02/08/2024 15:13:22 11/04/19 24 XR, knee No observ ation record ed. [email or web address] [facility] [address] [facility] [address], [place], [address], 11/04/2023 09:43:30 12/14/19 24 10/10/2023 imagi ng/di agnos tic resul t No observ ation record ed. [email or web address] [facility] [address] [facility] [address], [place], [address], 03/02/2024 16:57:42 02/03/20 24 02/03/2024 LDCT, chest , for lung cance r scree kerrie [facility] [address] [place] [address] Patien t Name: CHANELLE Jakob DUC Access ion #: [id number] Sex: M : 1955 4 Dictat [...] ons. No pneumo thorax . Page 1 [facility] [address] [address] [phone] Patien t Name: DUC MARRERO ion #: [id number] Sex: M : 1955 4 Dictat ed By: Duc Gomez ms Attend ing Physic wallace: MACY PEÑA [facility] Physic wallace: JENNIFER DELATORRE Exam Date: 2023 [...] c cysts. IMPRES JOSEFA: 1. Stable pulmon pre nodule s. No eviden ce of new pulmon per nodule . 2. Emphys jay. 3. Carias ry artery calcif icatio ns. 4. Stable upper abdomi nal findin gs. Lung-R ADS: Catego ry 2: Recomm endati on: Contin ue annual screen ing with LDCT https: //[email or web address] /[email or web address]- [email or web address]/L satish-RA - [email or web address].pdf Electr onical ly Signed by: Duc Gomez ms at 2023 09:03: 09 AM Page [email or web address] [facility] (Imaging) [address] [place], [address], 02/08/2024 15:13:23 02/03/20 24 02/03/2024 LDCT, chest , for lung cance r jody sy No observ ation record ed. [email or web address] [facility] [address] [place], [address], 02/08/2024 15:13:23 Result Notes None recorded. Problems Name Problem SNOMED Code Status Onset Date Resolution Date Notes Provider Name and Address Organization Details Recorded Time [place] 36193739 Active 2022 Not Available [employer] 15:01:35 Proteinuri a 46655784 Active 2022 Not Available [facility] 3 15:01:35 Type 2 diabetes mellitus without complicati on 374462377 Active 2022 Not Available [facility] 3 15:01:35 Peripheral vascular disease 731632088 Active 2022 Not Available [facility] 3 15:01:35 Erythrocyt osis 561718071 Active 2022 Not Available [facility] 3 15:01:35 Essential hypertensi on 76106947 Active 2022 Not Available [employer] 3 15:01:36 Primary erectile dysfunctio n 422294882 Active 2022 Not Available [facility] 3 15:01:36 Thrombocyt osis 8197516 Active 2022 Not Available [facility] 3 15:01:36 Sensorineu ral hearing loss of bilateral ears 643921315 Active 2022 Not Available [facility] 3 15:01:35 Obstructiv e sleep apnea syndrome 23224126 Active 2022 Not Available [facility] 3 15:01:36 Smoker 37674169 Active 2022 Not Available [facility] 3 15:01:36 Right inguinal hernia 922589354 Active 2022 Not Available [facility] 3 15:01:35 Ventral incisional hernia 704173544 Active 2022 Not Available [facility] 3 15:01:35 Pain of right knee joint 3108801610166 00 Active 2023 Franchesca Wagner, ATC L null, [place] [facility] [employer] [facility] [employer] 4 09:22:21 Osteoarthr itis of right knee joint 5105735910757 00 Active 2023 DOMINIK Sanchez [address] [facility], [facility] [address], [place], [address] , [place] [facility] [employer] [facility] 4 09:43:43 Acute sinusitis 90945690 Active 2024 VICENTE Montanez, [employer] 5 10:55:05 Testostero ne level below reference range 798304100 Active Not Available [facility] 3 15:01:35 Dry skin 32709151 Active 2020 Not Available [employer] 3 15:01:35 Chest pain 78522621 Active Not Available [facility] 3 15:01:35 Disorder of prostate 54956292 Active 2021 Not Available [employer] 3 15:01:35 Vitamin D deficiency 96650058 Active 2021 Not Available [employer] 3 15:01:35 Bunion 165057040 Active 2020 Not Available [facility] 3 15:01:36 Type 2 diabetes mellitus 05699971 Active 2017 Not Available [facility] 3 15:01:36 Anxiety 29195011 Active Not Available [facility] 3 15:01:36 Hyperlipid emia 25543444 Active 2021 Not Available [facility] 3 15:01:36 Tinea pedis 3139681 Active 2017 Not Available [facility] 3 15:01:36 Hyperglyce flo 86621357 Active Not Available [facility] 3 15:01:36 Notes:Medical History: Anxie ty R>L [...] and Address Organization Details Recorded Time 10/12/19 Medicare Wellness CPT Code, subsequent completed Theodore Ruelas LPN [employer] 10/11/2023 10:16:40 10/12/19 24 Advanced Care Planning completed Theodore Ruelas LPN [employer] 10/12/2023 12:18:03 07/06/19 24 Medicare Wellness CPT Code, subsequent completed Laura Jansen [employer] 07/06/2023 10:26:36 09/08/19 23 Hernia Surgery completed Jolene Onofre MA [employer] 09/14/2022 10:49:30 05/12/19 11 Colonoscopy completed Not Available [facility] 06/25/19 04:42:10 Hernia Surgery completed Not Available [facility] 06/24/2022 04:42:10 Imaging Results Imaging Date Name Status LastModified by Organization Details LastModified Time 01/18/2023 LDCT, chest, for lung cancer screening completed [email or web address] [facility] (Imaging) [address] [place], [address], 01/26/2023 16:43:16 01/18/2023 LDCT, chest, for lung cancer screening completed [address] (Radiology) [address] [place], [address], 04/29/2023 12:09:51 01/18/2023 LDCT, chest, for lung cancer screening completed [address] (Radiology) [address] [place], [address], 04/29/2023 12:09:52 08/12/2023 US, echocardiogram completed [email or web address] [facility] [address], [place], [address], 02/08/2024 15:13:21 08/12/2023 US, duplex, arterial, lower extremity completed [email or web address] [facility] [address], [place], [address], 02/08/2024 15:13:21 08/12/2023 US, duplex, aorta completed [email or web address] [facility] [address], [place], [address], 02/08/2024 15:13:22 08/19/2023 nuclear stress test completed [email or web address] [facility] [address], [place], [address], 02/08/2024 15:13:22 11/04/2023 XR, knee completed [email or web address] [facility] [address], [place], [address], 11/04/2023 09:43:30 10/10/2023 imaging/diagnostic result active [email or web address] [facility] [address] [facility] [address], [place], [address], 03/02/2024 16:57:42 02/03/2024 LDCT, chest, for lung cancer screening completed [address] (Imaging) [address] [place], [address], 02/08/2024 15:13:23 02/03/2024 LDCT, chest, for lung cancer screening completed [address] [place], [address], 02/08/2024 15:13:23 Procedure Notes None recorded. Medical Equipment None Reported. Allergies Allergen ID Allergen Name Allergen Category Reaction Reaction Severity Criticality Documentation Date Start Date Code Code System Note Provider Name and Address Organization Details Recorded Time 8973 Iodinated contrast media (substanc e) medicatio n Not available Not available Not available 06/24/2022 86799 2004 SNOMED Not Available [facility] 3 05:06:49 Medications Name Sig Start Date [...] propionat e 50 mcg/actua tion nasal spray,jasmeet rohit FERNANDEZ LQ AND U 1 SPR IEN QD [...] Updated DateTime 3 185.42 cm 27.7 kg/m2 41141.4 g 97.6 [degF] 78 /min 97 % 97 % 168 mm[Hg] 82 mm[Hg] Isa Song, [employer] [place] [facility] [employer] 3 09:31:13 Date Recorded Body height Body mass index (BMI) Body weight Body temperature Heart rate Systolic blood pressure Diastolic blood pressure Provider Name and Address Organization Details Last Updated DateTime 4 185.42 cm 29.3 kg/m2 004814. 51 g 97.4 [degF] 78 /min 138 mm[Hg] 72 mm[Hg] Nkechi Moran Thien [employer] [facility] [employer] [facility] 4 10:08:23 Date Recorded Body height Body mass index (BMI) Body weight Body temperature Heart rate Systolic blood pressure Diastolic blood pressure Provider Name and Address Organization Details Last Updated DateTime 4 185.42 cm 28.6 kg/m2 71355.5 4 g 97.2 [degF] 84 /min 144 mm[Hg] 62 mm[Hg] Nkechi Moran [facility] [employer] [facility] 4 11:12:03 Date Recorded Pain severity - 0-10 verbal numeric rating [Score] - Reported Respiratory rate Provider Name and Address Organization Details Last Updated DateTime 10/12/2023 0 16 /min Theodore Ruelas LPN [employer] [facility] [employer] [facility] 10/12/2023 12:14:00 Date Recorded Body height Body weight Provider Name and Address Organization Details Last Updated DateTime 11/04/2023 185.42 cm 67839.32 g SILVIA Baker [employer] [facility] [employer] 11/04/2023 09:16:56 Date Recorded Body height Body mass index (BMI) Body weight Body temperature Heart rate Systolic blood pressure Diastolic blood pressure Provider Name and Address Organization Details Last Updated DateTime 4 185.42 cm 29.7 kg/m2 486352. 28 g 97.6 [degF] 78 /min 136 mm[Hg] 68 mm[Hg] Nkechi Moran Thien [employer] [facility] [employer] [facility] 09:52:30 Social History Question Answer Notes LastModified by Organization Details LastModified Time Tobacco Smoking Status Current Every Day Smoker Not Available [employer] 06/24/2022 04:41:58 Do You Have An Advance Directive? No [id number].[email or web address] [id number] Information not available 06/24/2022 What Is Your Level Of Alcohol Consumption? None MIGRATION.0301 [id number] Information not available 06/24/2022 Do You Wear A Helmet When Biking? No Does Not Bike [email or web address] Information not available 10/12/2023 Are You Blind Or Do You Have Difficulty Seeing? No MIGRATION.0301 [id number] Information not available 06/24/2022 Is Blood Transfusion Acceptable In An Emergency? Yes [email or web address] Information not available 10/12/2023 What Is Your Level Of Caffeine Consumption? Heavy MIGRATION.0301 [id number] Information not available 06/24/2022 In The 14 Days Before Symptom Onset, Have You Had Close Contact With A Laboratory-conf irmed COVID-19 While That Case Was Ill? No MIGRATION.0301 [id number] Information not available 06/24/2022 In The 14 Days Before Symptom Onset, Have You Had Close Contact With A Person Who Is Under Investigation For COVID-19 While That Person Was Ill? No MIGRATION.0301 [id number] Information not available 06/24/2022 Are You Currently Employed? No [email or web address] Information not available 10/12/2023 Are You Deaf Or Do You Have Serious Difficulty Hearing? No Tinitis [email or web address] Information not available 10/12/2023 What Type Of Diet Are You Following? REGULAR MIGRATION.030 [id number] Information not available 06/24/2022 What Is The Highest Grade Or Level Of School You Have Completed Or The Highest Degree You Have Received? [id number] MIGRATION.030 [id number] Information not available 06/24/2022 Do You Have An Electrostatic Air Filter? Yes MIGRATION.0301 [id number] Information not available 06/24/2022 What Is Your Occupation? Retired MIGRATION.030 [id number] Information not available 06/24/2022 Have There Been Any Changes To Your Family Or Social Situation? Yes Sister In Law Moved In MIGRATION.030 [id number] Information not available 06/24/2022 What Is The Fluoride Status Of Your Home? Unknown MIGRATION.0301 [id number] Information not available 06/24/2022 Are There Any Guns Present In Your Home? No MIGRATION.0301 [id number] Information not available 06/24/2022 Do You Have A Humidifier? Yes MIGRATION.0301 [id number] Information not available 06/24/2022 Do You Use Insect Repellent Routinely? No MIGRATION.0301 [id number] Information not available 06/24/2022 Where Do You Live? SingleLevelHouse MIGRATION.0301 [id number] Information not available 06/24/2022 Presence Of Domestic Violence No [email or web address] Information not available 10/12/2023 Guns Present In The Home? No [email or web address] Information not available 10/12/2023 Are You Able To Care For Yourself? Yes Information not available 10/12/2023 Are You Blind Or Do Yo Have Difficulty Seeing? No [email or web address] Information not available 10/12/2023 Are You Deaf Or Do You Have Serious Difficulty Hearing? No Tinitis Information not available 10/12/2023 General Stress Level? Moderate [email or web address] Information not available 10/12/2023 Live Alone Of With Others? With Others Information not available 10/12/2023 Do You Have A Medical Power Of Electronics Installer? No MIGRATION.0301 [id number] Information not available 06/24/2022 Do You Have Moisture Problems In Your Home? Yes Few Leaks In Basement MIGRATION.0301 [id number] Information not available 06/24/2022 What Was The Date Of Your Most Recent Tobacco Screening? 02/08/2024 Information not available 02/08/2024 What Is Your Current Pack Years? 20-29packyears Information not available 10/12/2023 Do You Have Any Pets? Yes Dog [email or web address] Information not available 10/12/2023 What Is Your Relationship Status? MIGRATION.0301 [id number] Information not available 06/24/2022 Do You Use Your Seat Belt Or Car Seat Routinely? Yes MIGRATION.0301 [id number] Information not available 06/24/2022 Do You Have Smoke And Carbon Monoxide Detectors In Your Home? Yes MIGRATION.0301 [id number] Information not available 06/24/2022 At What Age Did You Start Smoking Tobacco? 15 [email or web address] Information not available 10/12/2023 Are You Passively Exposed To Smoke? Yes MIGRATION.0301 [id number] Information not available 06/24/2022 Are There Any Smokers In Your House? Yes MIGRATION.0301 [id number] Information not available 06/24/2022 How Much Tobacco Do You Smoke? 1 PPD 3/4 Ppd Information not available 02/08/2024 What Types Of Sporting Activities Do You Participate In? None [email or web address] Information not available 10/12/2023 Do You Feel Stressed (tense, Restless, Nervous, Or Anxious, Or Unable To Sleep At Night)? [id number] [email or web address] Information not available 10/12/2023 Do You Use Any Illicit Or Recreational Drugs? No MIGRATION.0301 [id number] Information not available 06/24/2022 Do You Use Sunscreen Routinely? Yes MIGRATION.0301 [id number] Information not available 06/24/2022 Has Tobacco Cessation Counseling Been Provided? Yes Information not available 10/12/2023 On What Date Was Tobacco Cessation Counseling Provided? 10/12/2023 Information not available 10/12/2023 How Many Years Have You Smoked Tobacco? 58 [email or web address] Information not available 10/12/2023 Have You Recently Traveled Abroad? No MIGRATION.0301 [id number] Information not available 06/24/2022 Do You Have Any Dietary Restrictions? No MIGRATION.0301 996260 Information not available 06/24/2022 Do You Or Have You Ever Used Any Other Forms Of Tobacco Or Nicotine? No MIGRATION.0301 999345 Information not available 06/24/2022 Sex: Male Functional Status Question Answer Note LastModified by [employer] Details LastModified Time Do you have difficulty walking or climbing stairs? No MIGRATION.[id number] 026 Information not available 06/24/2022 Do you have transportation difficulties? No MIGRATION.9279469 026 Information not available 06/24/2022 Are you able to walk? YESWOREST MIGRATION.7918306 026 Information not available 06/24/2022 Do you have difficulty doing errands alone? No MIGRATION.3898355 026 Information not available 06/24/2022 Are you able to care for yourself? Yes MIGRATION.6125467 026 Information not available 06/24/2022 Do you have difficulty dressing or bathing? No MIGRATION.0988644 026 Information not available 06/24/2022 What is your exercise level? None [email or web address] Information not available 10/12/2023 Mental Status Question Answer Note LastModified by [employer] Details LastModified Time Do you have difficulty concentrating, remembering or making decisions? No MIGRATION.[id number] 6 Information not available 06/24/2022 Family History Relationship Description Onset Age of this Age Resolved Age Notes LastModified by Organization Details LastModified Time Mother Diabetes mellitus MIGRATION.364 [id number] Not available 06/24/2022 04:42:17 Mother Benign essential hypertension MIGRATION.338 [id number] Not available 06/24/2022 04:42:17 Mother History of giant cell arteritis MIGRATION.267 [id number] Not available 06/24/2022 04:42:17 Father Heart disease MIGRATION.107 [id number] Not available 06/24/2022 04:42:17 Father Renal failure syndrome MIGRATION.206 [id number] Not available 06/24/2022 04:42:17 Medical History Condition Response NERVE DISEASE N BLINDNESS N RHEUMATIC FEVER N KIDNEY STONES N BLADDER PROBLEMS N MRSA N OTHER # 1 N POLIO N LUNG DISEASE/DISORDER N HISTORY OF DRUG ABUSE N RADIATION / CHEMOTHERAPY N COPD Y Other # 2 N BLOOD DISEASES Y EAR OR HEARING PROBLEMS Y MUMPS N SHINGLES N BOWEL PROBLEMS N DEPRESSION (INCLUDING POST ) N STROKE/TIA N ULCERS N BENIGN PROSTATIC HYPERPLASIA N MEASLES N HYPOTENSION N MYOCARDIAL INFARCTION N OBESITY N GERD/NAUSEA N ANEURYSM N URINARY/BLADDER/KIDNEY PROBLEMS Y CORONARY ARTERY DISEASE (CAD) N ADDICTION CONCERNS N ENDOMETRIOSIS N Impotence N USE OF BLOOD THINNERS Y SKIN [...] GLAUCOMA N FOOT PROBLEM N DIVERTICULITIS Y CHICKENPOX N SLEEP APNEA N INFECTIOUS DISEASE N HEART ARRHYTHMIA N PROSTATE N INSOMNIA N HIGH CHOLESTEROL / HYPERLIPIDEMIA Y HYPERTHYROIDISM N EYE PROBLEMS N EDEMA N CHRONIC PAIN SYNDROME N HYPOTHYROIDISM N CAROTID BLOCKAGE N CONSTIPATION N BACK / NECK PROBLEMS N ATHEROSCLEROSIS N BREAST PROBLEMS N DIALYSIS N ECZEMA N OSTEOPOROSIS N ARTHRITIS Y APPENDICITIS N DIABETES, TYPE Y BAD TEETH N ENT N HEARTBURN / REFLUX N AUTISM SPECTRUM DISORDER (ASD) N HEPATITIS / LIVER DISEASE N GOUT Y SLEEP DISORDER N ALZHEIMER'S DISEASE N Brain Problems N HERPES N DEMENTIA N HEADACHES/MIGRAINES N SEIZURES/EPILEPSY N VASCULAR DISEASE Y PACEMAKER N Blood Disorder N DIZZINESS N HEART DISEASE/HEART PROBLEMS N KIDNEY DISEASE N MULTIPLE SCLEROSIS N CARDIAC ARRHYTHMIA N CANCER: SPECIFY N ATRIAL FIBRILLATION N Gall Stones N PULMONARY EMBOLISM N AUTOIMMUNE DISEASE N Immunizations Vaccine Type Date Status Note Provider Nam e and Address Organization Details Recorded Time Influenza, MDCK, quadrivalent, PF 8 completed Laura [employer] [facility] 07/05/2023 18:45:16 Influenza, high-dose, quadrivalent, PF 1 completed Laura [employer] [place] [employer] [facility] [employer] 07/05/2023 18:45:17 COVID-19, mRNA, LNP-S, PF, 100 mcg/0.5mL dose or 50 mcg/0.25mL dose 1 completed Laura Jansen [employer] [place] [employer] [facility] [employer] 07/05/2023 18:45:17 COVID-19, mRNA, LNP-S, PF, 100 mcg/0.5mL dose or 50 mcg/0.25mL dose 1 completed Laura Jansen [employer] [place] [employer] [facility] [employer] 07/05/2023 18:45:17 COVID-19, mRNA, LNP-S, PF, 30 mcg/0.3 mL dose 1 completed Laura Jansen [employer] [facility] [employer] 07/05/2023 18:45:17 Influenza, high-dose, trivalent, PF 0 completed Not Available [facility] 06/24/2022 05:06:40 Influenza, split virus, quadrivalent, preservative 9 completed Not Available [facility] 06/24/2022 05:06:40 influenza, unspecified formulation 8 completed Not Available [facility] 06/24/2022 05:06:40 Influenza, high-dose, quadrivalent, PF 2 completed Not Available [facility] 06/24/2022 05:06:40 pneumococcal polysaccharide PPV23 0 completed Not Available [facility] 06/24/2022 05:06:41 Pneumococcal conjugate PCV 13 9 completed Laura Jansen [employer] [facility] 07/06/2023 10:27:08 Influenza, split virus, quadrivalent, PF 8 completed Not Available [facility] 06/24/2022 05:06:41 Tdap 11/15/201 8 completed Not Available [facility] 06/24/2022 05:06:41 Influenza, high-dose, trivalent, PF 4 completed Nkechi Moran, VICENTE ohara, [place] [facility] [employer] [facility] 02/08/2024 12:43:07 Past Encounters Encounter ID Performer Location Encounter Start Date Encounter Closed Date Diagnosis/Indication Diagnosis SNOMED-CT Code Diagnosis ICD10 Code Diagnosis Note [id number] [facility] [address] [address] 09/12/2020 00:00:00 09/12/2020 14:18:27 [id number] [facility] Bernie Cornelius [address] [place] [address] 12/12/2020 00:00:00 12/13/2020 08:06:32 [id number] _ATHENA_M IGRATION_ DEFAULT_1 _1 , 12/16/2020 00:00:00 12/16/2020 11:00:57 [id number] [facility] [address], [address] [address] 01/14/2021 00:00:00 01/20/2021 10:41:03 [id number] [facility] [address], [address] [address] 07/15/2021 00:00:00 07/15/2021 14:06:17 [id number] [facility] [address] [address] 12/23/2021 00:00:00 12/23/2021 10:03:50 [id number] [facility] Pulmonolo [address] [address] 01/22/2022 00:00:00 01/22/2022 13:30:27 [id number] [facility] [address], [address] [address] 03/10/2022 00:00:00 03/10/2022 09:53:32 [id number] Elvis hensley MD [facility] [address] [facility], [address] [place] [address] 07/07/2022 09:38:59 07/07/2022 10:22:47 Screening - NAD 192195120 Z13.9 C-scope: 2010, Dr. Hope, next in 10 years, referral provided 09/12/2020 , 03/10/2022 , 07/07/2022 UTD flu shotUTD on tdap 03/10/18UT D PCV #13 04/13/19, #23 04/11/2020 get shingles vaccine doneUTD on COVID 19 vaccine RTC in 4 monthsdo labsER if any symptoms worsen,he did verbalize his understand ing of the above Hyperlipidemia 73269888 E78.5 Not on atorvastat in 40mg dailyOn pravastati n nowGet labs Proteinuria 28867093 R80 .[address] David ALFARO, but is now seeing Dr Barker or Dr Mukherjee Smoker [id number] F17.200 LDCT 10/25/2019 : Next in one yearLDCT 11/14/2020 : Next in one yearLDCT 12/30/2021 : Next in one year [place] AAA 08/17/2019 : Neg Advised to quit smoking ! 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 Essential hypertension 98924936 I10 On losartanOn plavix filled by Dr Jimenez [facility] Has seen Dr David ALFARO,Has even seen HV Dr Jimenez Does well Primary er ectile dysfunction 471082744 N52.9 On cialis as neededDoes well Understand s the side effects Thrombocytosis 1379613 D 75.839 Get labs If PLT is >[address] Snell and he has declined any referrals today Sensorineu ral hearing loss of bilateral ears 627878752 H90.3 S/p ENT visit on 06/07/[address] temporal bone and TM surgery but patient not interested Obstructiv e sleep apnea syndrome 89434962 G47.33 Sleep study 10/29/2021 : [facility] Dr Jimenez, mild OSADr Raza 01/22/2022 Screening for malignant neoplasm of colon 675799489 Z12.11 Right inguinal hernia 23 0935790 K40.90 [id number] Jesus aparicio MD [facility] General Surgery [address] [address] 07/28/2022 10:17:43 07/28/2022 12:03:48 Ventral incisional hernia 211736667 K43.2 Right inguinal hernia 23 9628511 K40.90 [id number] Jesus aparicio MD [facility] General Surgery [address] [place] [address] 09/15/2022 11:28:11 09/15/2022 12:58:48 [id number] Elvis hensley MD [facility] Internal Med [facility] [address] [address] 01/12/2023 09:24:19 01/12/2023 09:58:40 Screening - NAD 485865822 Z13.9 C-scope: 2010, Dr. Hope, next in [...] his understand ing of the above Hyperlipidemia 83387784 E78.5 Not on atorvastat in 40mg dailyOn pravastati n nowGet labs Proteinuria 07326967 R80 .[address] David ALFARO, but is now seeing Dr Barker or Dr Mukherjee Smoker [id number] F17.200 LDCT 10/25/2019 : Next in one yearLDCT 11/14/2020 : Next in one yearLDCT 12/30/2021 : Next in one year [place] AAA 08/17/2019 : Neg Advised to quit smoking ! 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 Essential hypertension 99666474 I10 Repeat BP: 01/12/2023 On losartanOn plavix filled by Dr Jimenez [facility] Has seen Dr David ALFARO,Has even seen HV Dr Jimenez Does well Primary er ectile dysfunction 265185525 N52.9 On cialis as neededDoes well Understand s the side effects Thrombocytosis 2034346 D 75.839 Get labs If PLT is >[address] Snell and he has declined any referrals today Sensorineu ral hearing loss of bilateral ears 504143614 H90.3 S/p ENT visit on 06/07/[address] temporal bone and TM surgery but patient not interested Obstructiv e sleep apnea syndrome 14914107 G47.33 Sleep study 10/29/2021 : [facility] Dr Jimenez, mild OSADr Raza 01/22/2022 Screening for malignant neoplasm of colon 730571443 Z12.11 Right inguinal hernia 23 8730326 K40.90 S/p surgery Dr Emery, post op 09/15/2022 , f/u PRN [id number] Elvis hensley MD [facility] [address] [place] [address] 07/06/2023 09:57:26 07/06/2023 10:52:04 Screening - NAD 791146593 Z13.9 C-scope: 2010, Dr. Hope, next in [...] his understand ing of the above Hyperlipidemia 35245317 E78.5 Not on atorvastat in 40mg dailyOn pravastati n 20mg daily, today 07/06/2023 states that he has been non compliant with his diet as well as taking his pravastati n, will now take his meds on time and dailyMore diet and exercise, may need vascepaGet labs Proteinuria 09730983 R80 .[address] David ALFARO, but is now seeing Dr Barker or Dr Mukherjee Smoker [id number] F17.200 LDCT 10/25/2019 : Next in one yearLDCT 11/14/2020 : Next in one yearLDCT 12/30/2021 : Next in one yearLDCT 01/18/2023 : Next in one year [place] AAA 08/17/2019 : Neg Advised to quit smoking ! 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 Essential hypertension 33725970 I10 Repeat BP: 01/12/2023 On losartanOn plavix filled by Dr Jimenez [facility] Has seen Dr David ALFARO,Has even seen HV Dr Jimenez Does well Primary er ectile dysfunction 154237446 N52.9 On cialis as neededDoes well Understand s the side effects Thrombocytosis 5697701 D 75.839 Get labs If PLT is >[address] Snell and he has declined any referrals today 07/06/2023 Sensorineu ral hearing loss of bilateral ears 234937203 H90.3 S/p ENT visit on 06/07/[address] temporal bone and TM surgery but patient not interested Obstructiv e sleep apnea syndrome 33226084 G47.33 Sleep study 10/29/2021 : [facility] Dr Jimenez, mild OSADr Raza 01/22/2022 Screening for malignant neoplasm of colon 659451693 Z12.11 Right inguinal hernia 23 5613678 K40.90 S/p surgery Dr Emery, post op 09/15/2022 , f/u PRN Adult heal th examination 588572409 Z00.00 Screening for disorder 120226097 Z13.9 [id number] Elvis hensley MD [facility] [address] [facility], [facility] [address] [place] [address] 10/12/2023 11:00:55 10/12/2023 12:01:46 Screening - NAD 267108380 Z13.9 C-scope: 2010, Dr. Hope, next in [...] his understand ing of the above Hyperlipidemia 48473649 E78.5 Not on atorvastat in 40mg dailyOn pravastati n 20mg daily, today 07/06/2023 states that he has been non compliant with his diet as well as taking his pravastati n, will now take his meds on time and dailyMore diet and exercise, may need vascepaGet labs Proteinuria 85496921 R80 [address] Hernandez IJ, but is now seeing Dr Barker or Dr Mukherjee Smoker 61385833 F17.200 LDCT 10/25/2019 : Next in one yearLDCT 11/14/2020 : Next in one yearLDCT 12/30/2021 : Next in one yearLDCT 01/18/2023 : Next in one year [place] AAA 08/17/2019 : Neg Advised to quit smoking ! 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 Essential hypertension 61924765 I10 Repeat BP: 01/12/2023 On losartanOn plavix filled by Dr Jimenez [facility] Has seen Dr David ALFARO,Has even seen [facility] Dr Jimenez Does well ECHO 08/12/2023 US arterial duplex: 08/12/2023 US Aorta: 08/12/2023 Stress test 08/19/2023 Dr Jimenez: 09/15/2023 : Get CT angio Primary er ectile dysfunction 151601588 N52.9 On cialis as neededDoes well Understand s the side effects Thrombocytosis 7892116 D 75.839 Get labs If PLT is >[address] Snell and he has declined any referrals today 07/06/2023 Sensorineu ral hearing loss of bilateral ears 361020368 H90.3 S/p ENT visit on 06/07/[address] temporal bone and TM surgery but patient not interested Obstructiv e sleep apnea syndrome 71574232 G47.33 Sleep study 10/29/2021 : [facility] Dr Jimenez, mild OSADr Raza 01/22/2022 Screening for malignant neoplasm of colon 819532623 Z12.11 Right inguinal hernia 23 3967516 K40.90 S/p surgery Dr Emery, post op 09/15/2022 , f/u PRN Adult heal th examination 375830426 Z00.00 Screening for disorder 621179101 Z13.9 Nicotine dependence 5629 4008 F17.039 [id number] DOMINIK Sanchez [facility] Bernie Cornelius [address] [place] [address] 11/04/2023 08:42:57 11/04/2023 10:22:11 Pain of right knee joint 4642347779 91606 M25.561 Osteoarthr itis of right knee joint 4557917926 45971 M17.11 [id number] Elvis hensley MD [facility] [address] [facility], [address] [place] [address] 02/08/2024 09:44:33 02/08/2024 10:20:08 Screening - NAD 449085502 Z13.9 C-scope: 2010, Dr. Hope, next in [...] his understand ing of the above Hyperlipidemia 57407044 E78.5 Not on atorvastat in 40mg dailyOn pravastati n 20mg dailyMore diet and exercise, may need vascepaGet labs Proteinuria 89715154 R80 [address] Hernandez IJ, but is now seeing Dr Barker or Dr Mukherjee Smoker 04184067 F17.200 LDCT 10/25/2019 : Next in one yearLDCT 11/14/2020 : Next in one yearLDCT 12/30/2021 : Next in one yearLDCT 01/18/2023 : Next in one yearLDCT 02/03/2024 : CAD [place] AAA 08/17/2019 : Neg Advised to quit smoking ! 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 Essential hypertension 51318452 I10 Repeat BP: 01/12/2023 On losartanOn plavix filled by Dr Jimenez [facility] Has seen Dr David ALFARO,Has even seen [facility] Dr Jimenez Does well ECHO 08/12/2023 US arterial duplex: 08/12/2023 US Aorta: 08/12/2023 Stress test 08/19/2023 Dr Jimenez: 09/15/2023 : Get CT angioDid call Dr Jimenez and he will be seen tomorrow 02/09/2024 at 10.00am Primary er ectile dysfunction 313891293 N52.9 On cialis as neededDoes well Understand s the side effects Thrombocytosis 1475834 D 75.839 Get labsHe does continue to smoke, advised to quit!If PLT is >[address] Snell and he has declined any referrals today 07/06/2023 , 02/08/2024 Sensorineu ral hearing loss of bilateral ears 586797754 H90.3 S/p ENT visit on 06/07/[address] temporal bone and TM surgery but patient not interested Obstructiv e sleep apnea syndrome 77421288 G47.33 Sleep study 10/29/2021 : [facility] Dr Jimenez, mild OSADr Raza 01/22/2022 Screening for malignant neoplasm of colon 359743652 Z12.11 Right inguinal hernia 23 3767376 K40.90 S/p surgery Dr Emery, post op 09/15/2022 , f/u PRN Health Concerns Section Related Observation LastModified by Organization Detai ls LastModified Time None Recorded Concern Status LastModified by Organization Details LastModified Time None Recorded Advance Directives Directive N: Payers Encounter Date Sequence Insurance Name Policy Number Policy Bruno Covered Member ID Bruno Member ID Guarantor Name 01/12/2023 1 [facility] (MEDICARE REPLACEMENT/A DVANTAGE - PPO) [id number] Duc Holcomb [id number] Duc Holcomb 07/06/2023 1 [facility] (MEDICARE REPLACEMENT/A DVANTAGE - PPO) [id number] Duc Holcomb [id number] Duc Holcomb 10/12/2023 1 [facility] (MEDICARE REPLACEMENT/A DVANTAGE - PPO) [id number] Duc Holcomb [id number] Duc Holcomb 11/04/2023 1 [facility] (MEDICARE REPLACEMENT/A DVANTAGE - PPO) [id number] Duc Holcomb [id number] Duc Holcomb 02/08/2024 1 [facility] (MEDICARE REPLACEMENT/A DVANTAGE - PPO) [id number] Duc Holcomb [id number] Duc Holcomb Notes Date Note Type Note [...] done on 01/05/2023 Elvis Art MD [address] [facility], [address], [place], [address], [place] [facility] [employer] 01/12/2023 10:07:36 07/06/2023 text/html Last OV 10/20/16 [...] feels well today Elvis Art MD [address], [place], [address], [place] [facility] 07/07/2023 18:12:21 10/12/2023 text/html Last OV 10/20/16 [...] pending as the 'software' is spoilt at [facility] is here for his MWV also Elvis Art MD [address], [address], [place], [address], [employer] [facility] [employer] 10/31/2023 15:55:06 11/04/2023 text/html patient is a [...] oral anti-inflammatory medication. DOMINIK Sanchez [address], [address], [place], [address], [employer] [facility] [employer] 11/04/2023 09:44:05 02/08/2024 text/html Last OV 10/20/16 [...] discuss his toe infectionHe has seen Dr Taevras and is doing well nowHe also has [...] pending [facility] also OV 02/08/2024: Here for his f/u apt, he feels well today, he did do the labs on 02/03/2024 Elvis Art MD [address] [facility], [facility] [address], [place], [address], [facility] [employer] 02/18/2024 23:10:24
--- OUTSIDE RECORDS SUMMARY | 2024-06-12 16:06 | XMS_ITS | Clinical Summary ---
Author Organization [facility] Address [address] [place] [address] Care Team Providers Care Shareholder Name Role Phone Navneet Art MD Primary Care Provider Allergies Active Allergy Reactions Criticality Noted Date Comments Iodinated Contrast Media Itching 11/03/2023 Pt states he had to have previous scan stopped and given benadryl d/t reactions Social History Tobacco Use Types Packs/Day Years Used Date Smoking Tobacco: Never Assessed Sex and Gender Information Value Date Recorded Sex Assigned at Not on file Legal Sex Male 9:18 AM CDT Gender Identity Not on file Sexual Orientation Not on file Plan of Treatment Health Maintenance Due Date Last Done Comments ASCVD LDL 1955 ASCVD Statin 1955 Colorectal Cancer Screening Colonoscopy (10 Years) 1953 Kidney Health Evaluation 1955 Hemoglobin A1C 1953 Lipid Panel 1953 Diabetes: Retinopathy Eye Exam 06/30/1971 Hepatitis C 06/30/1971 Zoster Vaccines (1 of 2) 06/30/2003 RSV Immunization or 60+ Years (1 - Risk 60-74 years 1-dose series) 2013 Annual Medicare Wellness Visit 2018 COVID-19 Vaccine ( season) 2023 01/28/2023, 03/26/2021, 07/15/2020, Additional history exists Influenza Adult (#1) 2024 03/10/2022, 02/23/2021, 02/21/2020, Additional history exists DTaP, Tdap and Td Vaccines (2 - Td or Tdap) 03/10/2028 03/10/2018 Pneumococcal Vaccine: 65+ Years Completed 04/11/2020, 04/13/2019 Meningococcal B Vaccine Aged Out No l onger eligible based on patient's age to complete this topic Meningococcal Vaccine Aged Out No ryan maru eligible based on patient's age to complete this topic RSV Immunizations Under 20 Months Aged Out No longer eligible based on patient's age to complete this topic Insurance Care Teams Shareholder Relationship Specialty Start Date End Date Navneet Art MD [address] [place] [address] PCP - General INTERNAL MEDICINE 11/02/23
--- OUTSIDE RECORDS SUMMARY | 2024-06-12 16:06 | XMS_ITS | Clinical Summary ---
Author Organization [facility] Barbara utiangela Address [address] [place] [id number] Phone Care Team Providers Care Curatorial Specialist Name Role Phone Navneet Art MD Primary Care Provider [phone] Allergies Active Allergy Reactions Criticality Noted Date Comments Iodinated Contrast Media Hives High 12/28/2019 Medications Medication Sig Dispensed Refills Start Date End Date Status ALPRAZolam (XANAX) 0.25 MG tablet alprazolam 0.25 mg tablet TAKE 1 TABLET BY MOUTH EVERY DAY NEEDED 04/25/1969 Active azelastine (ASTELIN) 0.1 % nasal spray azelastine 137 mcg (0.1 %) nasal spray aerosol USE 2 SPRAYS NASALLY TWICE DAILY Active clopidogrel (PLAVIX) 75 MG tablet 04/26/2021 Active metFORMIN (GLUCOPHAGE) 500 MG tablet 04/26/2021 Active pravastatin (PRAVACHOL) 20 MG tablet 04/26/2021 Active tadalafil (Cialis) 20 MG tablet Cialis 20 mg tablet Act carolyn losartan (COZAAR) 100 MG tablet Take 1 tablet (100 mg total) by mouth at bed time 30 tablet 11 09/08/2021 Active Active Problems Problem Noted Date Diagnosed Date Vitamin D deficiency 12/15/2021 Erythrocytosis 09/04/2021 Reactive thrombocytosis 09/04/2021 Hyperglycemia 04/24/2021 Snoring 10/17/2019 Diabetes mellitus 09/14/2017 Atherosclerosis of aorta 08/23/2017 Atherosclerosis of arteries of the extremities 0 08/17/2017 Hypertension 08/17/2017 Tobacco dependence syndrome 08/17/2017 Hyperlipidemia 09/22/2016 Immunizations Name Administration Dates Next Due Influenza Split High Dose Preservative Free IM 1 05/10/2021,02/21/2020 Influenza TIV (IM) 02/23/2021 Influenza, Injectable, Quadrivalent 02/09/2019 Influenza, Injectable, Quadrivalent, Preservativ e Free 03/10/2018 Influenza, Unspecified 05/15/2017 Moderna Sars-cov-2 Vaccination 07/15/2020,2020 Pneumococcal Conjugate 13-Valent 04/13/2019 Pneumococcal Polysaccharide 04/11/2020 Tdap 03/10/2018 Social History Tobacco Use Types Packs/Day Years Used Date Smoking Tobacco: Heavy Smoker Smokeless Tobacco: Never Alcohol Use Standard Drinks/Week Comments Not Currently 0 (1 standard drink = 0.6 oz pur e alcohol) Sex and Gender Information Value Date Recorded Sex Assigned at Not on file Gender Identity Not on file Sexual Orientation Not on file Last Filed Vital Signs Vital Sign Reading Time Taken Comments Blood Pressure 124/70 03/23/2022 9:48 AM MANAGER PURCHASING Pulse 72 03/23/2022 9:48 AM MANAGER PURCHASING Temperature 35.9 C (96.6 F) 03/23/2022 9:48 AM MANAGER PURCHASING Respiratory Rate - - Oxygen Saturation - - Inhaled Oxygen Concentration - - Weight 94.3 kg (208 lb) 03/23/2022 9:48 AM MANAGER PURCHASING Height 185.4 cm (6' 1 ) 03/23/2022 9:48 AM MANAGER PURCHASING Body Mass Index 27.44 03/23/2022 9:48 AM MANAGER PURCHASING Plan of Treatment Health Maintenance Due Date Last Done Comments Diabetic Foot Exam 06/30/1963 Ophthalmology Exam 06/30/1963 COVID-19 Vaccine ( season) 2023, 06/13/2020 Influenza Vaccine (#1) 2023 , 03/10/2018, 05/15/2017 Pneumococcal PPSV23/PCV13 65 + Years / High and Highest Risk Completed 04/11/2020, 04/13/2019 Care Teams Curatorial Specialist Relationship Specialty Start Date End Date Navneet Art MD [facility] [place] [id number] PCP - General Family Medicine 02/17/21
--- OUTSIDE RECORDS SUMMARY | 2024-06-12 16:06 | XMS_ITS | Continuity of Care Document ---
Author Organization [facility] Address [address] [place] [address] [address] [place] [address] Phone Care Team Providers Care Land Title Examiner Name Role Phone Barrie Monson Unavailable Unavailable Advance Directives Directive Yes / No Effective Date File Name No Information Encounters Encounter Description Practice Location Reason(s) For Visit Diagnoses Date Provider Providers Copied on Encounter [facility], [address] [place] [address] [address], [place], [place], [id number], [place] tel:[phone] [facility] No Information Sep-1 2-200 3 Iona Sood. [address] [facility] , [address], [place], [address], [place]. tel:[phone] Family History Family Member Type Diagnosis Age At Onset No Information Payers Payer name Insurance type Covered constitution party ID Authoriza tion(s) No Information Social History Type Description Quantity Date Captured Comments Sex Male Smoking Status No Information Chief Complaint And Reason For Visit No Information Reason For Referral Reason For Referral No Information History Of Present Illness Encounter Date Complaint History Of Prese nt Illness No Information Functional Status Date Functional Assessmen t No Information Instructions Date Instruction Additional Infor mation No Information Assessments Type Assessment Date No Information Patient Care Teams Name Effective Dates (start - stop) Status Members No Information
--- OUTSIDE RECORDS SUMMARY | 2024-06-12 16:06 | XMS_ITS | Clinical Summary ---
Author Organization [facility] Joseph Sparks Address [address] [place] [address] Care Team Providers Care Clinical Trial Associate Name Role Phone Navneet Art MD Primary Care Provider Allergies Active Allergy Reactions Criticality Noted Date Comments Iodinated Contrast Media Hives High 12/28/2019 Iodine Hives High 08/18/2017 Medications pravastatin (PRAVACHOL) 20 mg tablet 0 Active clopidogreL (PLAVIX) 75 mg Tablet 0 Active metFORMIN (GLUCOPHAGE) 500 mg tablet 0 Active ALPRAZolam (XANAX) 0.25 mg tablet Take 0.25 mg by mouth nightly as needed for Anxiety. Active triamcinolone acetonide (KENALOG) 0.1 % Cream triamcinolone acetonide 0.1 % topical cream EMI TO DRY SKIN D PRN Active losartan (COZAAR) 100 mg tablet losartan 100 mg tablet 2 Active CALCIUM-VITAMI N D3-MAGNESIUM ORAL Take by mouth. Activ e Active Problems Problem Noted Date Diagnosed Date Reactive thrombocytosis 09/04/2021 Erythrocytosis 09/04/2021 Encounters Date Type Department Care Team Description 05/26/2024 9:00 AM TANK WAGON OPERATOR Office Visit [facility] - [place] [place] [address] Tomer Snell MD Essential thrombocythemia (CMS/HCC) (Primary Dx); Adrenal mass 05/26/2024 Orders Only [facility] [place] [address] [place] [address] Tomer Snell MD 05/23/2024 External Device Data [facility] ABSTRACTION Provider, Abstract from Last 3 Months Family History Medical History Relation Name Comments Heart Disease Father Diabetes Mother Diabetes Son Relation Name Status Comments Brother Alive Daughter Alive Father Mother Sister 1 Alive Sister 2 Son Alive Social History Tobacco Use Types Packs/Day Years Used Date Smoking Tobacco: Every Day Cigarettes 1 25 Smokeless Tobacco: Never Tobacco Cessation:Ready to Q uit: Not Asked; Counseling Given: Not Answered Alcohol Use Standard Drinks/Week Comments Not Currently 0 (1 standard drink = 0.6 oz pur e alcohol) Sex and Gender Information Value Date Recorded Sex Assigned at Male 05/25/2024 4:44 PM TANK WAGON OPERATOR Legal Sex Male 2:22 PM CDT Gender Identity Male 05/25/2024 4:44 PM TANK WAGON OPERATOR Sexual Orientation Not on file Last Filed Vital Signs Vital Sign Reading Time Taken Comments Blood Pressure 125/80 05/26/2024 9:00 AM TANK WAGON OPERATOR Pulse 74 05/26/2024 9:00 AM TANK WAGON OPERATOR Temperature 36.4 C (97.5 F) 05/26/2024 9:00 AM TANK WAGON OPERATOR Respiratory Rate 15 05/26/2024 9:00 AM TANK WAGON OPERATOR Oxygen Saturation 94% 05/26/2024 9:00 AM TANK WAGON OPERATOR Inhaled Oxygen Concentration - - Weight 98.4 kg (217 lb) 05/26/2024 9:00 AM TANK WAGON OPERATOR Height 185.4 cm (6' 1 ) 09/04/2021 11:01 AM CDT Body Mass Index 28.63 09/04/2021 11:01 AM CDT Plan of Treatment Upcoming Encounters Date Type Department Care Team (Late st Contact Info) Description 06/19/2024 4:30 PM TANK WAGON OPERATOR Telephone Check Up [facility] - [place] [address] [place] [address] Tomer Snell MD [address] [facility] [address] [place] [address] 05/28/2025 11:00 AM TANK WAGON OPERATOR Office Visit [facility] - [place] [address] [place] [address] Tomer Snell MD [address] [facility] [address] [place] [address] Health Maintenance Due Date Last Done Comments DIABETES ANNUAL FOOT EXAM 06/30/1971 DIABETES ANNUAL RETINAL EXAM 06/30/1971 DIABETES HBA1C Q 6 MONTHS 06/30/1971 DIABETES MICROALBUMIN ANNUAL SCREEN 06/30/1971 LDL CHOLESTEROL ANNUAL 06/30/1971 COLORECTAL SCREENING 1998 Colorectal Cancer Screening 1998 FIT-DNA Q 3 years 1998 FIT/FOBT Q 1 year 1998 Flex Sig/CT Colonography Q 5 years 1998 Lung Cancer Screening 06/30/2003 ZOSTER VACCINE (1 of 2) 06/30/2003 Abdominal Aortic Aneurysm (A AA) Screening 2018 COVID-19 Vaccine ( - 2023-2 5 season) 2023 03/26/2021, 07/15/2020, 06/13/2020 Medicare [place] ([place]) Preventative Visit/Annual Wellness Visit 04/26/2024 10/12/2023, 07/06/2023 DTAP/TDAP/TD VACCINES (2 - T d or Tdap) 03/10/2028 03/10/2018 RSV VACCINE (60+ or ) (1 - 1-dose 75+ series) 2028 PNEUMOCOCCAL VACCINE 65+ YEARS Completed 04/11/2020 , 04/13/2019 INFLUENZA VACCINE Completed 02/08/2024, , 03/10/2022, Additional history exists Procedures Procedure Name Priority Date/Time Associated Diagnosis Comments BASIC METABOLIC PANEL Routine 05/25/2024 1:08 PM TANK WAGON OPERATOR CBC WITH AUTODIFFERENTIAL Routine 2024 12:29 PM TANK WAGON OPERATOR from Last 3 Months Results * BASIC METABOLIC PANEL (05/25/2024 1:08 PM TANK WAGON OPERATOR) Blood us Tomer Snell MD CHEMISTRY ORDERABLES Final Resu lt * CBC WITH AUTODIFFERENTIAL (05/25/2024 12:29 PM TANK WAGON OPERATOR) Blood us Tomer Snell MD HEMATOLOGY ORDERABLES Final Res ult from Last 3 Months Insurance Care Teams Clinical Trial Associate Relationship Specialty Start Date End Date Navneet Art MD PCP - General Internal Medicine 12/13/19
== END 2024-06-12 13:32 | disposition home or self-care (01) ==
PROVIDERS: PCP Internal Medicine; Visit Provider Internal Medicine Hematology & Oncology
DX: E27.8 Other specified disorders of adrenal gland (principal); D35.02 Benign neoplasm of left adrenal gland; K76.0 Fatty (change of) liver, not elsewhere classified
CPT/HCPCS: 74183; A9577